=== PATIENT | male | born 1960 | race Caucasian/White ===

== ENCOUNTER → 2017-04-04 16:53 | Outpatient (CLI) | payer OTHER, SELFPAY ==
[2017-04-06 15:57] LABS: PSA, Free 1.81 ng/mL; PSA, Free % 23.5 (.); PSA, Total Ultrasensitive 7.7 ng/mL (0.0-4.0)
== END ==
PROVIDERS: Family Provider Family Medicine; PCP Family Medicine; Visit Provider Family Medicine
DX: R97.20 Elevated prostate specific antigen [PSA] (principal)
CPT/HCPCS: 36415; 84153; 84154

== ENCOUNTER → 2017-06-01 17:14 | Outpatient (CLI) | payer OTHER, SELFPAY ==
--- NOTE | 2017-06-01 08:00 | PROSBIL_PTH ---
PATIENT: MARVA CHIRINOS LOC: [facility] U#:[id number] AGE/SX: 64/M ROOM: RE06/01/[address]: Dr. Brandon Tracy MD : 1960 BED: DIS: SPEC #: [id number] RECD: 06/01/17 16:35 STATUS: JULIEN RASHAUN #: [id number] WOJCIECH: 06/01/17 08:[address]: Brandon Tracy DEPT: SURGICAL PATHOLOGY RECD BY: Duc Jeffers ENTERED: 06/02/17 10:49 SP TYPE: PROST BX XIMENA DR: Dr. Tacos Gomez MD Tissues: A - PROSTATE RIGHT B - PROSTATE RIGHT C - PROSTATE RIGHT D - PROSTATE LEFT E - PROSTATE LEFT F - PROSTATE LEFT Procedures: PROSTATE BX HEADER OPERATION: Prostate biopsy PRE-OP DIAGNOSIS: Elevated PSA TISSUE SUBMITTED: A - Right apex, B - Right mid, C - Right base, D - Left apex, E - Left mid, F - Left base MICROSCOPIC DIAGNOSIS A. Right prostate, apex, core biopsy: Mild chronic inflammation and focal acute inflammation. B. Right prostate, mid, core biopsy: Mild chronic inflammation. C. Right prostate, base, core biopsy: Mild chronic inflammation. D. Left prostate, apex, core biopsy: Mild chronic inflammation. E. Left prostate, mid, core biopsy: Mild chronic inflammation. F. Left prostate, base, core biopsy: Mild chronic inflammation and focal acute inflammation. AM:evelyn 06/05/17 MICROSCOPIC DESCRIPTION Slides are reviewed. GROSS DESCRIPTION A - Received is one container designated prostate, right apex. The specimen consists of two elongated fragments of light silva-white soft tissue each measuring 1.5 cm in length and 0.1 cm in diameter. The specimen is totally submitted in one cassette. B - Received is one container designated prostate, right mid. The specimen consists of two elongated fragments of light silva-white soft tissue each measuring 1.5 cm in length and 0.1 cm in diameter. The specimen is totally submitted in one cassette. C - Received is one container designated prostate, right base. The specimen consists of two elongated fragments of light silva-white soft tissue each measuring 1.5 cm in length and 0.1 cm in diameter. The specimen is totally submitted in one cassette. D - Received is one container designated prostate, left apex. The specimen consists of two elongated fragments of light silva-white soft tissue each measuring 1 cm in length and 0.1 cm in diameter. The specimen is totally submitted in one cassette. E - Received is one container designated prostate, left mid. The specimen consists of two elongated fragments of light silva-white soft tissue each measuring 1.5 cm in length and 0.1 cm in diameter. The specimen is totally submitted in one cassette. F - Received is one container designated prostate, left base. The specimen consists of two elongated fragments of light silva-white soft tissue each measuring 1 cm in length and 0.1 cm in diameter. The specimen is totally submitted in one cassette. / AM:evelyn 06/02/17 TC:2 CPT: 00609 x6
== END ==
PROVIDERS: Family Provider Family Medicine; PCP Family Medicine; Visit Provider Urology
DX: R97.20 Elevated prostate specific antigen [PSA] (principal)
CPT/HCPCS: 88305; G0416

== ENCOUNTER → 2018-04-02 | Outpatient (CLI) | payer OTHER, SELFPAY ==
[2018-04-02 17:21] LABS: PSA,Total- Diagnostic 6.46 ng/mL (0.0-4.0)
== END | disposition home or self-care (01) ==
LOC: LAB 16:06
PROVIDERS: Family Provider Family Medicine; PCP Family Medicine; Referring Provider Urology; Visit Provider Urology
DX: R97.20 Elevated prostate specific antigen [PSA] (principal)
CPT/HCPCS: 36415; 84153

== ENCOUNTER → 2018-04-23 16:53 | Outpatient (CLI) | payer OTHER, SELFPAY | PROVIDERS: Family Provider Family Medicine; PCP Family Medicine; Referring Provider Urology; Visit Provider Urology | DX: R31.9 Hematuria, unspecified (principal) | CPT/HCPCS: 87077; 87086; 87088; 87186 ==

== ENCOUNTER → 2018-10-16 06:13 | Outpatient (CLI) | payer OTHER, SELFPAY ==
[2018-10-16 08:10] LABS: AST(SGOT) 19 U/L (15-37); Alanine Aminotransfer ALT/SGPT 30 U/L (16-61); Albumin, Serum 3.2 g/dL (3.2-5.0); Alkaline Phosphatase 64 U/L (45-117); Anion Gap 6 (5-15); BUN 12 mg/dL (7-18); BUN/Creat Ratio 13.4 RATIO (10-20); Calcium,Total 8.6 mg/dL (8.5-10.1); Chloride 111 mmol/L (98-107); Cholesterol 161 mg/dL (200); Creatinine, Serum 0.89 mg/dL (0.70-1.30); EST Glomerular Filtration Rate 94 mL/min (>60); Est Glom Filt Rate - Afr Amer 113 mL/min (>60); Globulin 3.3 g/dL (2.2-4.2); Glucose 94 mg/dL (74-106); High Density Lipoprotein 45 mg/dL; Potassium 4.3 mmol/L (3.5-5.1); Protein, Total 6.5 g/dL (6.4-8.2); Sodium Level 146 mmol/L (136-145); Triglycerides 112 mg/dL; Very Low Density Lipoprotein 22 mg/dL (5-40)
== END ==
PROVIDERS: Family Provider Family Medicine; PCP Family Medicine; Referring Provider Urology; Visit Provider Urology
DX: I10 Essential (primary) hypertension (principal)
CPT/HCPCS: 36415; 80053; 80061

== ENCOUNTER → 2019-04-18 06:07 | Outpatient (CLI) | payer OTHER, SELFPAY ==
[2019-04-18 07:34] LABS: AST(SGOT) 26 U/L (15-37); Alanine Aminotransfer ALT/SGPT 36 U/L (16-61); Albumin, Serum 3.5 g/dL (3.2-5.0); Alkaline Phosphatase 72 U/L (45-117); Anion Gap 4 (5-15); BUN 16 mg/dL (7-18); BUN/Creat Ratio 18.3 RATIO (10-20); Calcium,Total 8.8 mg/dL (8.5-10.1); Chloride 109 mmol/L (98-107); Cholesterol 176 mg/dL (200); Creatinine, Serum 0.88 mg/dL (0.70-1.30); EST Glomerular Filtration Rate 96 mL/min (>60); Est Glom Filt Rate - Afr Amer 116 mL/min (>60); Globulin 3.5 g/dL (2.2-4.2); Glucose 98 mg/dL (74-106); High Density Lipoprotein 42 mg/dL; PSA,Total - Annual Screen 7.96 ng/mL (0.00-4.00); Potassium 4.3 mmol/L (3.5-5.1); Sodium Level 142 mmol/L (136-145); Triglycerides 126 mg/dL; Very Low Density Lipoprotein 25 mg/dL (5-40)
== END ==
PROVIDERS: PCP Family Medicine; Referring Provider Family Medicine; Visit Provider Family Medicine
DX: Z00.00 Encounter for general adult medical examination without abnormal findings (principal)
CPT/HCPCS: 36415; 80053; 80061; 84153; G0103

== ENCOUNTER → 2019-10-29 | Outpatient (CLI) | payer OTHER, SELFPAY | END | disposition home or self-care (01) | LOC: LABSPEC 15:58 | PROVIDERS: PCP Family Medicine; Referring Provider Nurse Practitioner Adult Health; Visit Provider Nurse Practitioner Adult Health | DX: R31.0 Gross hematuria (principal) | CPT/HCPCS: 87077; 87086; 87088 ==

== ENCOUNTER → 2019-11-07 07:41 | Outpatient (CLI) | payer OTHER, SELFPAY ==
--- NOTE | 2019-11-07 08:30 | CT_ITS ---
STUDY: CT ABDOMEN AND PELVIS WITH AND WITHOUT CONTRAST REASON FOR EXAM: Male, 58 years old. HEMATURIA X 1 MONTH RADIATION DOSAGE (If Supplied By Facility): CTDIvol = ( 22.13 ) mGy, DLP = ( 2323.14 ) mGycm TECHNIQUE: Transaxial images were obtained from the dome of the diaphragm to the symphysis pubis without oral contrast. IV 100mL Isovue-300 was administered. Sagittal and coronal images were reconstructed. Individualized dose optimization techniques were used for this CT. COMPARISON: None. FINDINGS: The visualized lung bases are unremarkable. The visualized portions of the heart are within normal limits. There is decreased attenuation of the liver consistent with steatosis. Normal gallbladder and extrahepatic biliary system. Normal spleen. Normal pancreas. Normal bilateral adrenal glands. Normal right kidney. Normal left kidney. There is a small hiatal hernia. Normal small intestine. Normal colon. The appendix is visualized and appears normal. Normal abdominal aorta. Normal inferior vena cava. There is borderline retroperitoneal lymphadenopathy with enlarged nodes no greater than 10mm in the short axis diameter. Normal urinary bladder. There is enlargement of the prostate gland. It measures 7.4 cm x 7.3 cm. This causes indentation at the bladder base. Normal abdominal wall. Small benign-appearing bilateral inguinal lymph nodes. There are mild degenerative changes of the visualized lumbar spine. CT/CT Abd/Pelvis W/WO Contrast IMPRESSION: Marked degree of enlargement of the prostate with indentation at the bladder base. Fatty attrition of the liver. Electronically Signed: Ivan Jean-Baptiste, at 9:05 EDT , Service support ,
== END ==
PROVIDERS: PCP Family Medicine; Referring Provider Nurse Practitioner Adult Health; Visit Provider Nurse Practitioner Adult Health
DX: R31.0 Gross hematuria (principal)
CPT/HCPCS: 74178; Q9967

== ENCOUNTER 2019-12-26 14:17 | Observation (INO) | payer OTHER, SELFPAY ==
--- NOTE | 2019-12-24 08:55 | EKG12_ITS ---
Test Reason : PRE OP Blood Pressure : / mmHG Vent. Rate : 055 BPM Atrial Rate : 055 BPM P-R Int : 190 ms QRS Dur : 108 ms QT Int : 424 ms P-R-T Axes : 014 005 015 degrees QTc Int : 405 ms Sinus bradycardia Otherwise normal ECG Confirmed by PARK DIEGO, SERGIO ([id number]), society editor KAYODE BARAJAS ([id number]) on 12/25/2019 8:57:21 AM Referred By: Brandon Tracy Confirmed By:SERGIO NICK MD
[2019-12-25] VITALS (14 sets, daily range): BP systolic 117–151; BP diastolic 60–85; PULSE 57–86; RESP 12–64; TEMP 36.2–36.7; O2SAT 93–98; BMI 44.6; BMI 45.3
[2019-12-25] MEDS: Lactated Ringers 1,000 ML 100 ML IV ×3 (06:54→10:00)
--- NOTE | 2019-12-25 07:28 | PCM.HP.STD ---
Problem List (1) BPH with obstruction/lower urinary tract symptoms Status: Acute History of Present Illness Date of Admission: 12/25/19 Chief Complaint: BPH with obstruction very large prostate The patient is a 59 year old male with a prostate over 100 g in size who presents today for a robotic prostatectomy for BPH with obstruction Past Medical History Allergies No Known Allergies Allergy (Verified 12/13/19 11:16) Home Medications: Ambulatory Orders Medication Instructions Recorded Tamsulosin HCl [Flomax] 0.8 mg PO 162912/27/12 Atenolol [Tenormin (beta Jaylene)] 50 mg PO 162904/24/15 Multivitamin with Minerals 1 ea PO DAILY 12/13/19 [Multiple Vitamin] Omeprazole [Prilosec] 80 mg PO 162912/13/19 Proaxil 2 - 3 tab PO DAILY 12/13/19 Surgical History: no surgical history Smoking Status: Never smoker Tobacco Use: Non-smoker Review of Systems Constitutional: Denies: Chills, Fever, Weight Change HEENT: Denies: Head Aches, Sinus Congestion, Sinus Drainage Cardiovascular: Denies: Chest Pain, Palpitations Respiratory: Denies: Cough, Shortness of breath at rest, Sputum production Gastrointestinal: Denies: Abdominal Pain, Nausea, Vomiting Genitourinary: Denies: Dysuria Musculoskeletal: Denies: Joint Pain, Joint Tenderness Skin: Denies: Rash, Wounds Neurological: Denies: Numbness, Tingling, Focal weakness Psychiatric: Denies: Anxiety, Depression, Homicidal Ideations, Suicidal Ideations Hematologic/ Lymphatic: Denies: Easy Bruising, Easy Bleeding VTE Information - Inpt Only VTE Present on Admission: No VTE Mechan Device Prophylaxis: SCD's - Physical Exam Vitals/I&O's: Vital Signs Temp Pulse Resp BP Pulse Ox 97.3 F L 58 L 16 138/83 H 96 12/25/19 06:21 12/25/19 06:21 12/25/19 06:21 12/25/19 06:21 12/25/19 06:21 Oxygen Delivery Method Room Air Weight: 153.4 kg Body Mass Index (BMI) 44.6 General: Alert, Oriented x3, Cooperative HEENT: Atraumatic, PERRLA, EOMI, Normocephalic Neck: Supple, No JVD, Negative Carotid Bruits Lungs: Clear to auscultation, Normal air movement Cardiovascular: Regular rate, No murmurs Abdomen: Bowel Sounds Present, Soft, Non Tender Extremities: No edema, Capillary Refill Less than 3 Seconds Skin: No rashes, No breakdown Musculoskeletal: No Tenderness to Palpation of Joints or Extremities Neurological: Cranial nerves II-XII grossly intact Psych/Mental Status: Normal Affect, Appropriate Microbiology Past 72 Hours 12/24/19 09:02 Interface Orders SARS-CoV-2 Antigen (Rapid) - Final Current Medications Cefazolin Sodium 2 gm/ Sodium (Chloride) 110 mls @ 150 mls/hr IV PREOP ONE Stop: 12/25/19 07:43 Lactated Ringer's () 1,000 mls @ 100 mls/hr IV .Q10H PRINCE Last Admin: 12/25/19 06:54 Dose: 100 mls/hr Documented by: Lactated Ringer's () 1,000 mls @ 100 mls/hr IV .Q10H PRINCE Last Admin: 12/25/19 06:55 Dose: 100 mls/hr Documented by: Assessment/Plan All Active Problems BPH with obstruction/lower urinary tract symptoms (Acute) 59-year-old male with a very large prostate plan to proceed with a robotic prostatectomy.
--- NOTE | 2019-12-25 07:34 | DCINST_ITS ---
Discharge Diet: Light diet - advance as tolerated, Soft diet Discharge Activity: May not drive while taking narcotic pain medications., May Shower Return to work on:: 01/22/20 Call your doctor if your incision/area has: Continuous Slow Oozing, Increased Pain/ Swelling, Increased Redness, Foul Smelling Discharge, Swelling at the incision site Call your doctor if you observe: Fever of 101 or Higher Catheter: Gardiner to leg bag, Gardiner to large bag Drain: [place] Allergies/Adverse Reactions: Allergies No Known Allergies Allergy (Verified 12/13/19 11:16) Medications to take at Discharge Tamsulosin HCl [Flomax] 0.8 mg PO 0 12/27/12 Atenolol [Tenormin (beta Jaylene)] 50 mg PO 0 04/24/15 Multivitamin with Minerals [Multiple Vitamin] 1 ea PO DAILY 12/13/19 Omeprazole [Prilosec] 80 mg PO 1630 12/13/19 Proaxil 2 - 3 tab PO DAILY 12/13/19 Ciprofloxacin [Cipro] 500 mg PO BID #14 tab 12/25/19 Docusate Sodium [Colace] 100 mg PO BID #20 cap 12/25/19 Hydrocodone/Acetaminophen [[place] 5-325 Tablet] 1 each PO Q4H PRN PRN 7 Days #14 tablet 12/25/19 The following prescriptions were given: Ciprofloxacin [Cipro] 500 mg PO BID #14 tab Transmission Status: Pending to [id number] Docusate Sodium [Colace] 100 mg PO BID #20 cap Transmission Status: Pending to [id number] Hydrocodone/Acetaminophen [[place] 5-325 Tablet] 1 each PO Q4H PRN PRN 7 Days #14 tablet PRN Reason: Pain 1-10 Or Fever Transmission Status: Received by [id number] Primary Care Physician: Jed Gomez MD [Primary Care Provider] - Test Results: Test results from this visit will be discussed in further detail at your follow- up appointment, if applicable. Please Follow Up With: Brandon Tracy MD When: in 2 weeks, please call to make an appointment. Proposed Discharge Date: 12/26/19
--- NOTE | 2019-12-25 08:00 | PROST_PTH ---
PATIENT: MARVA CHIRINOS LOC: [facility] U#:[id number] AGE/SX: 59/M ROOM: TX302 RE12/26/[address]: Dr. Brandon Tracy MD : 1960 BED: 1 DIS: 12/27/2019 SPEC #: [id number] RECD: 12/25/19 13:14 STATUS: JULIEN RODNEY #: [id number] WOJCIECH: 12/25/19 08:[address]: Brandon Tracy DEPT: SURGICAL PATHOLOGY RECD BY: Marla Rader ENTERED: 12/26/19 08:40 SP TYPE: PROSTATE OTHR DR: Dr. Tacos Gomez MD Tissues: Prostate, NOS Procedures: Surgery Specimen Level V HEADER OPERATION: Lap robotic simple prostatectomy PRE-OP DIAGNOSIS: BPH with obstruction, lower urinary tract symptoms TISSUE SUBMITTED: Prostate MICROSCOPIC DIAGNOSIS Prostate, simple prostatectomy: Benign prostatic hyperplasia, glandular and stromal type. Acute and chronic inflammation. SJ:evelyn 12/27/19 MICROSCOPIC DESCRIPTION Slides are reviewed. GROSS DESCRIPTION Received in fixative is one container labeled with the patient's name and designated prostate. The specimen consists of a simple prostatectomy specimen in multiple pieces weighing in aggregate 92 gm. The larger piece measures 6 x 5 x 4 cm. Also received are multiple smaller pieces measuring in aggregate 8 x 7.5 x 3 cm. Sections do not reveal any mass lesion. Transportation Job Titles sections are submitted in six cassettes. Cassettes 1-6 contains the largest piece. / GERARDO:evelyn 12/26/19 TC:5 CPT: 45413
[2019-12-25] MEDS: Cefazolin 2 GM in 0.9% Normal Saline 100 ML IV (08:15)
[2019-12-25] MEDS: Bupivacaine Mpf 0.5% 30 ML VIAL (08:41)
--- NOTE | 2019-12-25 11:06 | OP.PCM_ITS ---
Problem List (1) BPH with obstruction/lower urinary tract symptoms Status: Acute Report of Operation Date of Procedure: 12/25/19 Pre-Operative Diagnosis: BPH with enlarged prostate Post-Operative Diagnosis: Same Surgery/Procedure Performed:: Laparoscopic robotic assisted prostatectomy Description of Surgical Findings:: 59-year-old male was taken back to the operating room at the smooth induction of general anesthesia he was placed in dorsolithotomy position. The abdomen shaved and prepped and draped in usual sterile fashion, the penis and testicles were prepped and draped using usual sterile fashion. We placed a 16 [place] catheter into the bladder. I then made a small incision in the umbilicus and dissected down to the anterior fascia with a hemostat and then used a Veress needle to introduce the Veress needle into the peritoneal cavity filled the peritoneal cavity CO2 gas and then placed my camera trocar right arm trocar left arm trocar 1012 Lee Durand air seal port and a suction port. The placement was placed in full Trendelenburg we then started off by filling the bladder up with 500 cc of normal saline I then made an incision in the bladder in the midline from the top to the bottom opening of the bladder clamps showing the bladder completely. I then passed a Fernando needle with Prolene on the right side of the abdomen it was quite difficult because he was a very obese male with the push on the abdomen and see with a Fernando needle came through. We then retracted the right side of the bladder laterally we did the same thing on the left side the right clamshell open the bladder I then went in and using the scissors and the prograsp started dissecting on the prostate incised the mucosa all the way circumferentially around the prostate identified the adenoma started dissecting the inferiorly and the adenoma*working on the adenoma on the right side went above the adenoma lateral to the adenoma below the adenoma as deep as possible into the prostate to then enucleate the adenoma from the prostatic fossa as I went through there were some attachments of the adenoma we can see eventually the large adenoma on the right side of the prostate was removed and then we went to the left side continue with the dissection the left side grabbing the adenoma was circumferentially we were dissecting the adenoma off the prosthetic bed and enucleated the prostatic adenoma off the prostate all the way deep into the prostate. We fracture the abdomen to get pieces and fracture the abdomen the left and right side took pieces to be the Endo Catch bag to put all the pieces then an adenoma in the Endo Catch bag and as we remove the adenoma growth from the prostate we then cleared out all the growth that was blocking off the channel he then had a nice wide open channel from the bladder neck all the way to the urethra we placed a new 20 [place] catheter into the bladder and then I completed the anastomosis after excising the adenoma from the bladder neck mu huey advancing it all the way down to the mucosa all the way around to advance to mucosa to help prevent a bladder neck contracture after the mucosa was advanced then I put a catheter in the bladder we filled up to 10 cc of sterile water with minor traction the catheter and then we closed the bladder up in 2 layers are closed closed the first layer with 3-0 Vicryl running layer and then we closed the second layer of the bladder with 2-0 Vicryl running layer these were then sutured down and tied we then filled the bladder up to test for leakage and there was no leakage from the bladder bladder was irrigated completely and nice and clear with a pinkish-yellow pinkish color urine. I we then extracted the prostatic adenoma from the lower abdomen through the extending the air seal port site then we closed the fascia with interrupted sutures. We then closed all the port sites removed all the trochars undocked the robot and then closed with the port sites with subcuticular stitches patient's anesthetic is currently being reversed all the sponges and needles were accounted for the urine was clear he still under anesthesia but being awakened at this point he is hemodynamically stable blood loss was about 200 cc during the case. Successful removal of the prostatic adenoma placement Manning catheter and closure of bladder. Type of Anesthesia:: General Drains: 20 fr manning - Admit VTE Documentation VTE Present on Admission: No VTE Mechan Device Prophylaxis: SCD's
[2019-12-25] MEDS: Ketorolac 15 MG/ML Vial IV ×3 (11:58→21:07)
[2019-12-25] MEDS: 0.9% Normal Saline 1,000 ML 150 ML IV ×3 (12:19→23:07)
--- NOTE | 2019-12-25 12:55 | SUR.PHASEI ---
IN PACU: DR HOOKS INSERTED 3-WAY CATHETER FOR CBI AFTER MANUALLY IRRIGATING CATHETER, RETURNED DARK RED BLOOD AND CLOTS. WILL MONITOR BEFORE TRANSFERRING TO MED-SURG.
--- NOTE | 2019-12-25 14:32 | NURSING ---
computer in room not working, unable to find portable computer to use in this pt room-called i.s. and left message of problem at this time
[2019-12-25] MEDS: Pantoprazole Sodium 40 MG Tablet PO (15:20)
[2019-12-25] MEDS: Tolterodine Tartrate 4 MG CAP.SA PO (15:20)
[2019-12-25] MEDS: Docusate Sodium 100 MG Capsule PO ×2 (15:20→21:07)
[2019-12-25] MEDS: Ciprofloxacin 400 MG/200 ML BAG 200 MG IV (15:38)
[2019-12-25] MEDS: Atenolol 50 MG Tablet PO (15:40)
[2019-12-26] MEDS: Ciprofloxacin 400 MG/200 ML BAG 200 MG IV (03:07)
[2019-12-26] MEDS: Ketorolac 15 MG/ML Vial IV ×3 (03:07→16:18)
[2019-12-26 03:10] VITALS: BP 133/52; PULSE 66; RESP 18; TEMP 36.9; O2SAT 98
[2019-12-26 06:29] LABS: Hematocrit 43.3 % (40-54); Hemoglobin 13.7 g/dL (13.0-16.5); Mean Corp Hgb Conc 31.6 g/dL (32-36); Mean Corpuscular Hgb 27.3 pg (27.0-32.0); Mean Corpuscular Volume 86.4 fL (80-94); Mean Platelet Vol. 9.6 fl (6.2-12.0); Platelet Count 231 K/mm3 (150-450); RBC Distribution Width CV 13.2 % (11.6-14.6); RBC Distribution Width SD 41.6 fl (35.1-43.9); Red Blood Count 5.01 M/mm3 (4.6-6.2); White Blood Count 14.6 K/mm3 (4.4-11.0)
[2019-12-26 06:54] LABS: Anion Gap 3 (5-15); BUN 12 mg/dL (7-18); BUN/Creat Ratio 13.3 RATIO (10-20); Calcium,Total 8.3 mg/dL (8.5-10.1); Chloride 110 mmol/L (98-107); EST Glomerular Filtration Rate 93 mL/min (>60); Est Glom Filt Rate - Afr Amer 112 mL/min (>60); Estimated Creatinine Clearance 102.34 ml/min; Glucose 118 mg/dL (74-106); Potassium 3.9 mmol/L (3.5-5.1); Sodium Level 139 mmol/L (136-145)
[2019-12-26 08:57] VITALS: BP 130/75; PULSE 63; RESP 16; TEMP 36.7; O2SAT 98
[2019-12-26] MEDS: Tolterodine Tartrate 4 MG CAP.SA PO (09:22)
[2019-12-26] MEDS: Docusate Sodium 100 MG Capsule PO ×2 (09:22→21:56)
[2019-12-26] MEDS: Pantoprazole Sodium 40 MG Tablet PO (09:22)
[2019-12-26 13:54] VITALS: BP 134/84; PULSE 78; RESP 16; TEMP 37.2; O2SAT 96
[2019-12-26] MEDS: Atenolol 50 MG Tablet PO (16:18)
[2019-12-26] MEDS: HYDROcodone Bitartrate/Apap 5/325 Tablet PO (19:31)
[2019-12-26 20:21] VITALS: BP 119/79; PULSE 67; RESP 16; TEMP 36.5; O2SAT 97
[2019-12-27 02:31] VITALS: BP 152/80; PULSE 67; RESP 16; TEMP 36.5; O2SAT 96
[2019-12-27 08:28] VITALS: BP 136/82; PULSE 75; RESP 16; TEMP 36.8; O2SAT 96
[2019-12-27 08:35] VITALS: O2SAT 95
[2019-12-27] MEDS: Pantoprazole Sodium 40 MG Tablet PO (08:47)
[2019-12-27] MEDS: Docusate Sodium 100 MG Capsule PO (08:47)
[2019-12-27] MEDS: Tolterodine Tartrate 4 MG CAP.SA PO (08:47)
== END 2019-12-27 12:35 | disposition home or self-care (01) ==
LOC: SDC 14:32 → MS3 14:32
PROVIDERS: Admitting Provider Urology; PCP Family Medicine; Referring Provider Urology; Visit Provider Urology
PROC: 0VT04ZZ Resection of Prostate, Percutaneous Endoscopic Approach (ICD-10-PCS; CPT 55866; principal; 2019-12-25 07:40)
DX: N40.1 Benign prostatic hyperplasia with lower urinary tract symptoms (principal); N13.8 Other obstructive and reflux uropathy; Z79.899 Other long term (current) drug therapy; Z20.828 Contact with and (suspected) exposure to other viral communicable diseases; I10 Essential (primary) hypertension; K21.9 Gastro-esophageal reflux disease without esophagitis
CPT/HCPCS: 00865; 55866; S2900; 80048; 85027; 87426; 88307; 88309; 93005; 96361; 96365; 96366; 96375; 96376; 99218; C9803; J7030; J7120; G0378; G0379; J0744; J2405

== ENCOUNTER → 2020-05-27 11:20 | Outpatient (CLI) | payer OTHER, SELFPAY ==
[2019-12-25 13:45] VITALS: BMI 45.3
[2020-05-27 13:25] LABS: ALB/GLOB Ratio 1.1 RATIO (0.9-2.4); AST(SGOT) 18 U/L (15-37); Alanine Aminotransfer ALT/SGPT 30 U/L (16-61); Albumin, Serum 3.6 g/dL (3.2-5.0); Alkaline Phosphatase 61 U/L (45-117); Anion Gap 5 (5-15); BUN 12 mg/dL (7-18); BUN/Creat Ratio 13.4 RATIO (10-20); Calcium,Total 8.9 mg/dL (8.5-10.1); Chloride 109 mmol/L (98-107); Creatinine, Serum 0.89 mg/dL (0.70-1.30); EST Glomerular Filtration Rate 93 mL/min (>60); Est Glom Filt Rate - Afr Amer 113 mL/min (>60); Globulin 3.4 g/dL (2.2-4.2); Glucose 92 mg/dL (74-106); PSA,Total - Annual Screen 1.83 ng/mL (0.00-4.00); Sodium Level 139 mmol/L (136-145)
== END ==
PROVIDERS: PCP Family Medicine; Referring Provider Family Medicine; Visit Provider Family Medicine
DX: I10 Essential (primary) hypertension (principal); R73.01 Impaired fasting glucose; N40.0 Benign prostatic hyperplasia without lower urinary tract symptoms
CPT/HCPCS: 36415; 80053; 84153; G0103

== ENCOUNTER → 2021-10-19 | Outpatient (CLI) | payer OTHER, SELFPAY ==
[2021-10-19 12:18] LABS: Hematocrit 49.6 % (40-54); Hemoglobin 16.3 g/dL (13.0-16.5); Mean Corp Hgb Conc 32.9 g/dL (32-36); Mean Corpuscular Hgb 27.8 pg (27.0-32.0); Mean Corpuscular Volume 84.6 fL (80-94); Mean Platelet Vol. 9.9 fl (6.2-12.0); Platelet Count 239 K/mm3 (150-450); RBC Distribution Width CV 13.5 % (11.6-14.6); Red Blood Count 5.86 M/mm3 (4.6-6.2); White Blood Count 6.7 K/mm3 (4.4-11.0)
[2021-10-19 12:59] LABS: ALB/GLOB Ratio 0.8 RATIO (0.9-2.4); AST(SGOT) 20 U/L (15-37); Alanine Aminotransfer ALT/SGPT 29 U/L (16-61); Albumin, Serum 3.2 g/dL (3.2-5.0); Alkaline Phosphatase 60 U/L (45-117); Anion Gap 7 (5-15); BUN 14 mg/dL (7-18); BUN/Creat Ratio 16.2 RATIO (10-20); Calcium,Total 9.3 mg/dL (8.5-10.1); Chloride 107 mmol/L (98-107); Cholesterol 193 mg/dL (200); Creatinine, Serum 0.86 mg/dL (0.70-1.30); EST Glomerular Filtration Rate 96 mL/min (>60); Est Glom Filt Rate - Afr Amer 117 mL/min (>60); Globulin 3.9 g/dL (2.2-4.2); Glucose 92 mg/dL (74-106); High Density Lipoprotein 38 mg/dL; PSA,Total - Annual Screen 4.53 ng/mL (0.00-4.00); Potassium 4.1 mmol/L (3.5-5.1); Protein, Total 7.1 g/dL (6.4-8.2); Sodium Level 140 mmol/L (136-145); Triglycerides 188 mg/dL; Very Low Density Lipoprotein 38 mg/dL (5-40)
== END | disposition home or self-care (01) ==
LOC: MFPLAB 11:10
PROVIDERS: PCP Family Medicine; Visit Provider Family Medicine
DX: K30 Functional dyspepsia (principal); R73.01 Impaired fasting glucose; Z12.5 Encounter for screening for malignant neoplasm of prostate
CPT/HCPCS: 36415; 80053; 80061; 84153; 85027; G0103

== ENCOUNTER → 2022-11-24 | Outpatient (CLI) | payer OTHER, SELFPAY ==
[2022-11-24 15:52] LABS: ALB/GLOB Ratio 0.9 RATIO (0.9-2.4); AST(SGOT) 23 U/L (15-37); Alanine Aminotransfer ALT/SGPT 42 U/L (16-61); Albumin, Serum 3.4 g/dL (3.2-5.0); Alkaline Phosphatase 56 U/L (45-117); Anion Gap 5 (5-15); BUN 15 mg/dL (7-18); BUN/Creat Ratio 17.6 RATIO (10-20); Calcium,Total 8.9 mg/dL (8.5-10.1); Chloride 108 mmol/L (98-107); Cholesterol 189 mg/dL (200); Creatinine, Serum 0.85 mg/dL (0.70-1.30); EST Glomerular Filtration Rate 98 mL/min (>60); Est Glom Filt Rate - Afr Amer 118 mL/min (>60); Globulin 3.6 g/dL (2.2-4.2); Glucose 98 mg/dL (74-106); High Density Lipoprotein 41 mg/dL; PSA,Total - Annual Screen 2.91 ng/mL (0.00-4.00); Potassium 4.2 mmol/L (3.5-5.1); Sodium Level 141 mmol/L (136-145); Triglycerides 143 mg/dL; Very Low Density Lipoprotein 29 mg/dL (5-40)
== END | disposition home or self-care (01) ==
LOC: MFPLAB 11:41
PROVIDERS: PCP Family Medicine; Visit Provider Family Medicine
DX: R73.01 Impaired fasting glucose (principal); R97.20 Elevated prostate specific antigen [PSA]
CPT/HCPCS: 36415; 80053; 80061; 84153; G0103

== ENCOUNTER → 2024-03-04 | Outpatient (CLI) | payer BC, SELFPAY ==
[2024-03-04 15:16] LABS: Absolute Lymphocyte Count 1.19 X10^3/uL (0.83-4.51); Absolute Neutrophil Count 4.5 X10^3/uL (2.0-7.7); Basophil# 0.08 X10^3/uL; Basophil% 1.2 % (0-1); Eosinophil# 0.11 X10^3/uL; Eosinophils% 1.7 % (0-5); Hematocrit 49.8 % (40-54); Hemoglobin 15.7 g/dL (13.0-16.5); Lymphocyte # 1.19 X10^3/ul (0.83-4.51); Lymphocyte % 18.5 % (19-41); Mean Corp Hgb Conc 31.5 g/dL (32-36); Mean Corpuscular Hgb 26.4 pg (27.0-32.0); Mean Corpuscular Volume 83.8 fL (80-94); Mean Platelet Vol. 10.1 fl (6.2-12.0); Monocyte# 0.54 X10^3/uL; Monocyte% 8.4 % (0-10); NRBC Flagged by Analyzer 0 % (0-5); Neutrophil # 4.49 X10^3/uL (2.7-7.7); Neutrophil % 69.7 % (47-70); Platelet Count 266 K/mm3 (150-450); RBC Distribution Width CV 13.1 % (11.6-14.6); RBC Distribution Width SD 39.9 fl (35.1-43.9); Red Blood Count 5.94 M/mm3 (4.6-6.2); White Blood Count 6.4 K/mm3 (4.4-11.0)
[2024-03-04 16:04] LABS: AST(SGOT) 20 U/L (15-37); Alanine Aminotransfer ALT/SGPT 31 U/L (16-61); Albumin, Serum 3.5 g/dL (3.2-5.0); Alkaline Phosphatase 69 U/L (45-117); Anion Gap 5 (5-15); BUN 12 mg/dL (7-18); BUN/Creat Ratio 12.9 RATIO (10-20); Calcium,Total 9.4 mg/dL (8.5-10.1); Chloride 106 mmol/L (98-107); Cholesterol 183 mg/dL (200); Creatinine, Serum 0.93 mg/dL (0.70-1.30); EST Glomerular Filtration Rate 88 mL/min (>60); Est Glom Filt Rate - Afr Amer 106 mL/min (>60); Globulin 3.5 g/dL (2.2-4.2); Glucose 107 mg/dL (74-106); High Density Lipoprotein 46 mg/dL; Potassium 4.3 mmol/L (3.5-5.1); Sodium Level 139 mmol/L (136-145); Triglycerides 138 mg/dL; Very Low Density Lipoprotein 28 mg/dL (5-40)
== END | disposition home or self-care (01) ==
LOC: BIMLAB 12:19
PROVIDERS: PCP Internal Medicine; Referring Provider Internal Medicine; Visit Provider Internal Medicine
DX: I10 Essential (primary) hypertension (principal); K21.9 Gastro-esophageal reflux disease without esophagitis
CPT/HCPCS: 36415; 80053; 80061; 84443; 85025

== ENCOUNTER → 2024-03-08 | Outpatient (CLI) | payer BC, SELFPAY ==
--- NOTE | 2024-03-08 12:27 | RAD_ITS ---
STUDY: X-RAY - LEFT KNEE REASON FOR EXAM: Male, 63 years old. Knee pain. TECHNIQUE: 4 views of the left knee. COMPARISON: Left knee radiographs dated 11/02/2005. FINDINGS: Normal visualized distal femur. Normal visualized proximal tibia and fibula. Normal proximal tibiofibular articulation. There is no demonstrated fracture. There is new moderate degenerative arthrosis of the medial femorotibial compartment with moderate joint space narrowing. There is new mild degenerative arthrosis of the lateral femorotibial compartment. There is new mild degenerative arthrosis of the patellofemoral articulation. The soft tissue structures are unremarkable. RAD/Knee 4 or More Views IMPRESSION: New tricompartment degenerative arthrosis of the left knee, most pronounced in the medial femorotibial compartment. Electronically Signed: Sean Clifton MD at 10:33 EST ,
== END | disposition home or self-care (01) ==
LOC: RAD 12:25
PROVIDERS: PCP Internal Medicine; Referring Provider Internal Medicine; Visit Provider Internal Medicine
DX: M25.562 Pain in left knee (principal); G89.29 Other chronic pain
CPT/HCPCS: 73564

== ENCOUNTER 2024-05-13 12:00 | Outpatient (RCR) | payer BC, SELFPAY ==
--- NOTE | 2024-03-20 11:39 | HP.PTEVAL_ITS ---
Patient's Visit Information Visit Information Visit Information: MARVA CHIRINOS is a 63 year old M referred to Physical Therapy by Dr. Melchor Feldman MD with a diagnosis of L knee pain. Date of Evaluation: 03/20/24 Physical Therapist: Chago Velez, DPT, OCS, CSCS Visit Plan Frequency: 2x /Week Duration: 4-6 Weeks Plan: 2x/week for 4-6 weeks recommended to patient for activity modification, management of condition, stretching l3egs and strengthening /ROM hips and knees and ankles and core to an I pool or gym/HEP.Start with pool therapy where he has been oriented for stretching quad and HS, knee ROM and hip ext ROM, and core and LE strength to an I program. IE HEP: quad and HS stretch on bed 30 5x daily and LAQ throughout day as well as activitiy modification with keeping knee moving and not overdoing WB if he does not have to. Benefits of ex program. Pt wishes to see his doctor for possible injections prior to beginning and will call to schedule after he sees that doctor. Subjective Subjective: L >R knee pain for years chronic. They are worn out. x ray knees shows OA. Went to doctor and has had injections years ago 25 yrs ago which helped temporarily. has been putting up with it. Disability is an option. 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 Hurts worse end of day, can't sit often. 2-6/10 worse with dangling, sitting too long is worse, feet are worse end of work day as are feet. No meds or bracing for this, h/o R knee scope yrs ago. No ortho lately Hobbies: Tired at end of day so no hobbies. Works eats and sleeps, 9-11 hour shifts 5 days per week. No regular exercises. Pain L knee: Pain Intensity (Out of 10): 3 Pain Intensity Range: 2 and 6 Comment: both knees L worse Objective Objective: Walks back to PT slowly but I, wide VALERIE and short step length but safe and good balance. Trasnfers chair and bed I slowly. Large girth. Steps are reciprocal up and down with L knee pain in both directions and requires rails. AROM L knee 0-114 adn r knee 0-120. Pain at end ranges of flexion max tightness in HS at -40 and quad at 90 with hip neutral. Lots of tightness. Otherwise hip aROM WFL xcept extension limited to 5 B. ankle AROM WFL adn painfree today. reflexes 1/3 patella and achilles B. sensation LE WNL to gross light touch. strength hip flexion 3+, abd 3, ext 3, knee flexion 4- and knee ext 4+ B. ankles 5/5 B. - bounce home, - patellar grind B. Balance/Special Test Scores Lower Extremity Functional Score: 42 Goals Goal 1:: Work without increased pain in knees Goal Time Frame: 4-6 Weeks Goal 2:: I appropriate HEP to limit future problems(pool vs land/gym) Goal Time Frame: 4-6 Weeks Goal 3:: Pain in knees and feet 2/10 at worst adn 70% better Goal Time Frame: 4-6 Weeks Goal 4:: LEFS 55 Goal Time Frame: 4-6 Weeks Goal 5:: steps without noticing pain in L kne Goal Time Frame: 4-6 Weeks Rehabilitation Potential Physical Therapy Diagnosis: L knee pain likely degenerative in nature and poorly managed making mobility uncomfortable. Rehabilitation Potential: Fair Anticipated Interventions Patient/Client Instruction: Educate patient on: Condition and Plan of Care For the Purpose of:: To decrease pain, To increase ROM, To improve nutrient delivery to tissue, To improve muscle performance and motor function, To increase tolerance to activity/condition/position, To improve ability of physical actions for home/community/work/leisure and To improve gait and locomotor functions Therapeutic Exercise to Include: Strength training, Flexibilty training, In an aquatic setting, Passive ROM and Active ROM For the Purpose of:: To decrease pain, To decrease swelling/inflammation, To increase ROM, To improve nutrient delivery to tissue, To improve muscle performance and motor function, To increase tolerance to activity/condition/position and To improve ability of physical actions for home/community/work/leisure Text: Thank you for the opportunity to evaluate your patient. For Medicare and Medicare HMO plans, please review the plan of care and approve it. It will need to be FAXED BACK to us at [phone] for Medicare purposes. For Medicare only, by signing this I certify the plan of care. Please let me know if there are questions or concerns regarding this plan of care. Physician Signature: Date:
--- NOTE | 2024-05-13 12:20 | HP.PTDCSUM ---
Discharge Summary D/C summary: It has been my pleasure to treat MARVA CHIRINOS referred by Dr. Melchor Feldman MD, with the diagnosis of L knee pain for a total of 9 visit(s). Discharge Date: 05/13/24 Please see the following information for a summary of their discharge status. Subjective Subjective: Pool strengthens him up but still pain behind the knee. Hurt bad behind both knees Monday adn could not make it in. Helps to be in the pool. Doing HEP 3x/week. Sees Josh in late May. Not sure but injections might be next step. Pt thinks he needs next step. Pain L knee: Pain Intensity (Out of 10): 7 B ankles: Pain Intensity (Out of 10): 7 R hip: Pain Intensity (Out of 10): Unrated Overall Improvement % Improvement: 10 Objective Objective/Function: 0-115 AROM B knees, tightness L end range flexion. Mod tightness HS B and quad B. No antalgia in gait today but slow and lumbering. Ovrall not much improvd adn appropriate for next step with doctor(injection vs MRI according to patient) Goals Goal 1:: Work without increased pain in knees Goal Progress: Goal Met Goal 2:: I appropriate HEP to limit future problems(pool vs land/gym) Goal Progress: home, not gym Goal 3:: Pain in knees and feet 2/10 at worst adn 70% better Goal Progress: Progressing Goal 4:: LEFS 55 Goal Progress: Not Progressing Goal 5:: steps without noticing pain in L kne Goal Progress: Not Progressing Plan Plan: d/c to HEP, may benefit from more gym ex once pain is addressed D/C Information Discharge Comments: Back to doctor for next medical step. d/c sentence: If there are questions or concerns regarding this patient's physical therapy, please feel free to call me at [phone]. Thank you for the referral of this patient. Sincerely, Chago Velez, DPT, OCS, CSCS Balance/Gait/Functional tests Balance/Special Test Scores Lower Extremity Functional Score: 29 Improvement % Improvement: 10
== END 2024-05-13 12:54 | disposition home or self-care (01) ==
LOC: PT 12:00
PROVIDERS: PCP Internal Medicine; Referring Provider Internal Medicine; Visit Provider Internal Medicine
DX: M25.562 Pain in left knee (principal); G89.29 Other chronic pain
CPT/HCPCS: 97110; 97113; 97161; 97530

== ENCOUNTER 2024-06-28 06:43 | Day surgery (SDC) | payer BC, SELFPAY ==
[2024-06-28] VITALS (8 sets, daily range): BP systolic 103–140; BP diastolic 71–87; PULSE 61–68; RESP 16–95; TEMP 36.1–36.6; O2SAT 95–99; BMI 45.6
[2024-06-28] MEDS: Lactated Ringers 1,000 ML 15 ML IV (07:24)
--- NOTE | 2024-06-28 07:29 | PRE.ANES_ITS ---
ASA Classification* ASA Classification ASA Classification: 3 Assessment & Plan Anesthesia* Anesthesia Assessment Anesthesia Assessment: Discussed sedation and/or anesthesia options, risks, benefits, and alternatives with patient/parents/legal guardian/POA. Questions invited. The patient/parents/legal guardian/POA seems to understand and agrees to proceed with anesthesia plan. Reviewed the physical assessment, medical history, allergy history and patient home medications list prior to surgery/procedure/anesthetic and documented any changes. Performed airway and anesthesia risk assessments. Anesthesia Type Anesthesia Type: MAC Anesthesia Focused Assessment* Temperature: 97.3 F Pulse Rate: 61 Blood Pressure: 140/87 Respiratory Rate: 16 Pulse Ox: 99 Airway Assessment Mouth opens: >3 cm Mallampati Score: III Focused Labs Anesthesia Preop lab: CBC WBC 6.4 K/mm3 (4.4-11.0) 03/04/24 12:03/04/24 RBC 5.94 M/mm3 (4.6-6.2) 03/04/24 12:03/04/24 Hgb 15.7 g/dL (13.0-16.5) 03/04/24 12:03/04/24 Hct 49.8 % (40-54) 03/04/24 12:03/04/24 Plt Count 266 K/mm3 (150-450) 03/04/24 12:03/04/24 CHEMISTRY Potassium 4.3 mmol/L (3.5-5.1) 03/04/24 12:03/04/24 Sodium 139 mmol/L (136-145) 03/04/24 12:03/04/24 BUN 12 mg/dL (7-18) 03/04/24 12:03/04/24 Creatinine 0.93 mg/dL (0.70-1.30) 03/04/24 12:03/04/24 Glucose 107 mg/dL (74-106) H 03/04/24 12:03/04/24 TSH 1.800 uIU/mL (0.358-3.740) 03/04/24 12:02/14 COAG Pre-Assessment Diagnosis/Proposed Procedure Planned Operative Procedure(s): EGD/CSCOPE Anesthesia History 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 When Was Last Pacemaker Check QUESTION #4 FULL TEXT: You/Your Family Experience fever (hyperthermia) with Anesthesia Last Oral Intake Last Oral intake: Last Oral Intake NPO since 16:00 06/28/24 07:14 Meds taken in AM with sips of No 06/28/24 07:14 water? Meds patient instructed to take am of surgery PONV PONV - instructor dancing: PONV - instructor dancing Female No 06/27/24 09:51 HX of Motion Sickness Yes 06/27/24 09:51 HX of N/V After Surgery No 06/27/24 09:51 Non-Smoker Yes 06/27/24 09:51 Duration of Surgery greater No 06/27/24 09:51 than 60 minutes Number of Risk Factors 2 06/27/24 09:51 PONV Score Moderate Risk 06/27/24 09:51 Height & Weight Height & Weight: Anesthesia: Height & Weight Height 6 ft 1 in 06/28/24 07:14 Weight: 157 kg 06/28/24 07:14 Body Mass Index (BMI) 45.6 06/28/24 07:14 Respiratory Assessment Respiratory Assessment - instructor dancing: Respiratory Tract Infection Hx - instructor dancing Hx Respiratory Tract Infection No 06/27/24 09:51 STOP Sleep Apnea STOP Sleep Apnea - instructor dancing: STOP Sleep Apnea - instructor dancing Hx Hypertension Yes: CONTROLLED WITH MED 06/27/24 09:51 Hx Sleep Apnea Yes 06/27/24 09:51 CPAP Yes 06/27/24 09:51 BIPAP No 06/27/24 09:51 Do you snore loudly (louder than talking or can be heard Do you often feel tired/ fatigued/ sleepy during daytime? Has anyone observed you stop breathing during sleep? STOP Results Positive 06/27/24 09:51 QUESTION #5 FULL TEXT : Do you snore loudly (louder than talking or can be heard through closed doors)? 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 Specify any problems Hx of Preganancy in last 3 N/A 06/27/24 09:51 Months Nurse Filling Out Transfusion DSCHRIBER 06/27/24 09:51 & Questions: Date: 06/27/24 06/27/24 09:51 Time: 09:52 06/27/24 09:51 Patient unable to answer at this time (ie. confused, unrespo /Reproduction History /Reproductive History - instructor dancing: /Reproductive Hx- instructor dancing Hx Now No 06/27/24 09:51 Gestational Age (in weeks): EDC: Hx Hx Para Hx Section SAB No 06/27/24 09:51 Active Medications Active Medications: Current Medications Generic Name Dose Route Start Last Admin Trade Name Freq PRN Reason Stop Dose Admin Lactated Ringer's 1,000 mls @ 15 mls/hr 06/28/24 07:00 06/28/24 07:24 IV 15 mls/hr .Q48H PRINCE Administration PFSH Medical History Loss of hearing Wears glasses Wears dentures Diabetes Arthritis Anemia High cholesterol Restless legs Back pain Hypertension Non-smoker CPAP (continuous positive airway pressure) dependence Shortness of breath on exertion Leg cramps History of pain when walking History of edema Personal history of colonic polyps GERD (gastroesophageal reflux disease) Asthma 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 Home Medications ?Medication ?Instructions ?Recorded ?Last Taken ?Type cetirizine 10 mg capsule (Zyrtec) 10 mg PO QDAY allerg y symptoms 03/04/24 06/27/24 History omeprazole 20 mg capsule,delayed 20 mg PO QDAY 5 06/20/24 History release tirzepatide (weight loss) 2.5 2.5 mg (0.5 mL) subcut Q WEEK #2 mL 06/03/24 06/16/24 Rx mg/0.5 mL subcutaneous pen injector (Zepbound) atenolol 50 mg tablet 50 mg PO 1000 06/27/2406/27 History Allergy/AdvReac Type Severity Reaction Status Date / Time finasteride AdvReac Mild PT UNSURE Verified 06/28/24 07:12 OF REACTION Family History Mother Asthma Arthritis Breast cancer Thyroid disorder Cancer pancreatic Brother Asthma Arthritis Hypertension Sister Asthma Arthritis Breast cancer Thyroid disorder Hypertension Grandmother Arthritis Grandfather Arthritis Daughter Thyroid disorder Father Cancer lung Surgical History Hx of right cataract extraction Hx of left cataract extraction History of esophagogastroduodenoscopy (EGD) H/O colonoscopy H/O arthroscopic knee surgery History of surgical procedure H/O prostatectomy Social History household members: family current occupational status: employed 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
--- NOTE | 2024-06-28 08:00 | EGD_PTH ---
PATIENT: MARVA CHIRINOS LOC: EN U#:[id number] AGE/SX: 63/M ROOM: RE06/28/[address]: Dr. Oleg Yoon MD : 1960 BED: DIS: 06/28/2024 SPEC #: [id number] RECD: 06/28/24 11:33 STATUS: JULIEN BYRDDennis #: [id number] WOJCIECH: 06/28/24 08:[address]: Oleg Yoon DEPT: SURGICAL PATHOLOGY RECD BY: Ambrose Xavier ENTERED: 06/28/24 12:01 SP TYPE: EGD BIOPSY OT DR: Dr. Vidhya Moreno MD Tissues: A - Gastric mucous membrane B - Esophagus, NOS C - Ascending colon D - Transverse colon E - Descending colon Procedures: Immunohistochemical Stains Surgery Specimen Level IV HEADER OPERATION: Colonoscopy with biopsies, EGD with biopsies PRE-OP DIAGNOSIS: Personal history of colonic polyps, GERD TISSUE SUBMITTED: A- Antral biopsy - r/o h.pylori, B- Gastroesophageal junction biopsy- r/o Barett's esophagus, C- Ascending colon biopsy polyp, D- Transverse colon biopsy, E- Descending colon polyp biopsy MICROSCOPIC DIAGNOSIS A. Gastric antrum, biopsy: Antral mucosa with features of reactive gastropathy. IHC negative for H.pylori organisms. B. Gastroesophageal junction, biopsy: Squamous mucosa with reactive changes. Negative for eosinophils. C. Ascending colon polyp, biopsy: Tubular adenoma. D. Transverse colon, biopsy: Tubular adenoma. E. Descending colon polyp, biopsy: Tubular adenoma. MICROSCOPIC DESCRIPTION Slides are reviewed. All matched controls reacted appropriately. These tests were developed and their performance characteristics determined by [facility]. They may not have been cleared or approved by the U.S. Food and Drug Administration. The FDA has determined that such clearance or approval is not necessary. The above immunohistochemical/dualISH markers are ordered and reviewed by the Pathologist. GROSS DESCRIPTION A. Received in fixative is one container labeled with the patient's name and designated Antral biopsy. The specimen consists of one irregular fragment of light silva soft tissue that measures 0.5 x 0.3 x 0.2 cm. The specimen is totally submitted in one cassette. B. Received in fixative is one container labeled with the patient's name and designated GE junction. The specimen consists of two irregular fragments of light silva soft tissue that in aggregate measure 0.7 x 0.3 x 0.2 cm. The specimen is totally submitted in one cassette. C. Received in fixative is one container labeled with the patient's name and designated Ascending colon biopsy polyp. The specimen consists of one irregular fragment of light silva soft tissue that measures 0.3 x 0.3 x 0.2 cm. The specimen is totally submitted in one cassette. D. Received in fixative is one container labeled with the patient's name and designated Transverse colon biopsy. The specimen consists of one irregular fragment of light silva soft tissue that measures 0.3 x 0.3 x 0.2 cm. The specimen is totally submitted in one cassette. E. Received in fixative is one container labeled with the patient's name and designated Descending colon polyp biopsy. The specimen consists of two irregular fragments of light silva soft tissue that in aggregate measure 0.4 x 0.2 x 0.1 cm. The specimen is totally submitted in one cassette. 06/28/2024 CPT:[id number]
--- NOTE | 2024-06-28 08:38 | PCM.HP.STD ---
HPI - General General Date of Service: 06/28/24 Chief Complaint: EGD and colonoscopy HPI Narrative The patient is a 63-year-old male who is being seen today to schedule at least a colonoscopy as his last colonoscopy was about 10 years ago. He did have colon polyps on a previous colonoscopy so he is certainly overdue for colonoscopy. He had an EGD couple of years ago which was unremarkable however he states that his acid reflux symptoms seem to be worsening. As result his PCP is advising repeat EGD as well. Patient presents today to discuss the scopes and to get these scheduled. He denies any lower GI issues such as blood in his stools or black or tarry stools. He does have a family history of colon polyps as well. 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 Home Medications ?Medication ?Instructions ?Recorded ?Last Taken ?Type cetirizine 10 mg capsule (Zyrtec) 10 mg PO QDAY allergy symptoms 03/04/24 06/27/24 History omeprazole 20 mg capsule,delayed 20 mg PO QDAY 06/03/24 06/20/24 History release tirzepatide (weight loss) 2.5 2.5 mg (0.5 mL) subcut QWEEK #2 mL 06/03/24 06/16/24 Rx mg/0.5 mL subcutaneous pen injector (Zepbound) atenolol 50 mg tablet 50 mg PO 1000 06/27/24 06/27/24 History Allergy/AdvReac Type Severity Reaction Status Date / Time finasteride AdvReac Mild PT UNSURE Verified 06/28/24 07:12 OF REACTION Family History Mother Asthma Arthritis Breast cancer Thyroid disorder Cancer pancreatic Brother Asthma Arthritis Hypertension Sister Asthma Arthritis Breast cancer Thyroid disorder Hypertension Grandmother Arthritis Grandfather Arthritis Daughter Thyroid disorder Father Cancer lung Surgical History Hx of right cataract extraction Hx of left cataract extraction History of esophagogastroduodenoscopy (EGD) H/O colonoscopy H/O arthroscopic knee surgery History of surgical procedure H/O prostatectomy Social History household members: family current occupational status: employed 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[employer]) Smoking Status: Never smoker second hand exposure: No alcohol intake: never substance use type: does not use caffeine: No eating out: rarely or never do you feel safe at home: Yes Vital Signs Vital Signs Vital Signs: 06/28/24 07:14 06/28/24 07:14 06/28/24 07:29 Temperature 97.3 F L 97.3 F L Temperature Source Temporal Pulse Rate 61 61 Respiratory Rate 16 16 Respiratory Pattern Normal Blood Pressure 140/87 H 140/87 H Blood Pressure Mean 104 Blood Pressure Source Monitor Blood Pressure Position Semi-Fowlers Blood Pressure Location Right Arm Pulse Ox 99 99 Oxygen Delivery Method Room Air Weight Weight: 346 lb 2.012 oz Body Mass Index (BMI) 45.6 Physical Exam Const alert, oriented x3 and no apparent distress Assessment & Plan Assessment/Plan (1) Personal history of colonic polyps: (2) GERD (gastroesophageal reflux disease): PLAN: Plan EGD and colonoscopy planned for today.
--- NOTE | 2024-06-28 08:41 | HP.PCM_ITS ---
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 Home Medications ?Medication ?Instructions ?Recorded ?Last Taken ?Type cetirizine 10 mg capsule (Zyrtec) 10 mg PO QDAY allerg y symptoms 03/04/24 06/27/24 History omeprazole 20 mg capsule,delayed 20 mg PO QDAY 5 06/20/24 History release tirzepatide (weight loss) 2.5 2.5 mg (0.5 mL) subcut Q WEEK #2 mL 06/03/24 06/16/24 Rx mg/0.5 mL subcutaneous pen injector (Zepbound) atenolol 50 mg tablet 50 mg PO 1000 06/27/2406/27 History Allergy/AdvReac Type Severity Reaction Status Date / Time finasteride AdvReac Mild PT UNSURE Verified 06/28/24 07:12 OF REACTION Family History Mother Asthma Arthritis Breast cancer Thyroid disorder Cancer pancreatic Brother Asthma Arthritis Hypertension Sister Asthma Arthritis Breast cancer Thyroid disorder Hypertension Grandmother Arthritis Grandfather Arthritis Daughter Thyroid disorder Father Cancer lung Surgical History Hx of right cataract extraction Hx of left cataract extraction History of esophagogastroduodenoscopy (EGD) H/O colonoscopy H/O arthroscopic knee surgery History of surgical procedure H/O prostatectomy Social History household members: family current occupational status: employed 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[employer] ([employer]) Smoking Status: Never smoker second hand exposure: No alcohol intake: never substance use type: does not use caffeine: No eating out: rarely or never do you feel safe at home: Yes Vital Signs Vital Signs Vital Signs: 06/28/24 07:14 06/28/24 07:14 06/28/24 07:29 Temperature 97.3 F L 97.3 F L Temperature Source Temporal Pulse Rate 61 61 Respiratory Rate 16 16 Respiratory Pattern Normal Blood Pressure 140/87 H 140/87 H Blood Pressure Mean 104 Blood Pressure Source Monitor Blood Pressure Position Semi-Fowlers Blood Pressure Location Right Arm Pulse Ox 99 99 Oxygen Delivery Method Room Air Weight Weight: 346 lb 2.012 oz Body Mass Index (BMI) 45.6
--- NOTE | 2024-06-28 08:41 | HP.PCM_ITS ---
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 Home Medications ?Medication ?Instructions ?Recorded ?Last Taken ?Type cetirizine 10 mg capsule (Zyrtec) 10 mg PO QDAY allerg y symptoms 03/04/24 06/27/24 History omeprazole 20 mg capsule,delayed 20 mg PO QDAY 5 06/20/24 History release tirzepatide (weight loss) 2.5 2.5 mg (0.5 mL) subcut Q WEEK #2 mL 06/03/24 06/16/24 Rx mg/0.5 mL subcutaneous pen injector (Zepbound) atenolol 50 mg tablet 50 mg PO 1000 06/27/2406/27 History Allergy/AdvReac Type Severity Reaction Status Date / Time finasteride AdvReac Mild PT UNSURE Verified 06/28/24 07:12 OF REACTION Family History Mother Asthma Arthritis Breast cancer Thyroid disorder Cancer pancreatic Brother Asthma Arthritis Hypertension Sister Asthma Arthritis Breast cancer Thyroid disorder Hypertension Grandmother Arthritis Grandfather Arthritis Daughter Thyroid disorder Father Cancer lung Surgical History Hx of right cataract extraction Hx of left cataract extraction History of esophagogastroduodenoscopy (EGD) H/O colonoscopy H/O arthroscopic knee surgery History of surgical procedure H/O prostatectomy Social History household members: family current occupational status: employed 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[employer] ([employer]) Smoking Status: Never smoker second hand exposure: No alcohol intake: never substance use type: does not use caffeine: No eating out: rarely or never do you feel safe at home: Yes Vital Signs Vital Signs Vital Signs: 06/28/24 07:14 06/28/24 07:14 06/28/24 07:29 Temperature 97.3 F L 97.3 F L Temperature Source Temporal Pulse Rate 61 61 Respiratory Rate 16 16 Respiratory Pattern Normal Blood Pressure 140/87 H 140/87 H Blood Pressure Mean 104 Blood Pressure Source Monitor Blood Pressure Position Semi-Fowlers Blood Pressure Location Right Arm Pulse Ox 99 99 Oxygen Delivery Method Room Air Weight Weight: 346 lb 2.012 oz Body Mass Index (BMI) 45.6
--- NOTE | 2024-06-28 09:36 | PCM.POST.ANE ---
Anesthesia: Postop Eval I Current Vital Signs Temperature: 97 F Pulse Rate: 67 Blood Pressure: 104/74 Respiratory Rate: 16 Pulse Ox: 95 Oxygen Delivery Method: Room Air Assessment Airway patent: Yes Spontaneous unlabored respirations: Yes Mental status: Awake and Calm nausea: No Vomiting: No Anesthesia Complication: No Fluid Hydration Crystalloid volume administer (ml): 600 Total IV fluid infused: 600 Progress Note Anesthesia document: Postop Eval 1 completed: Yes
--- NOTE | 2024-06-28 09:39 | PCM.POSTANE2 ---
Anesthesia Postop Eval I Sum Postop Eval Completion status Anesthesia document: Postop Eval 1 completed: Yes Anesthesia Postop Eval I Summary Anesthesia Postop Eval I Summary: Anesthesia Postop Eval I: Assessment Summary Airway patent Yes 06/28/24 09:37 [email or web address] Spontaneous unlabored Yes 06/28/24 09:37 [email or web address] respirations Mental status Awake,Calm 06/28/24 09:37 [email or web address] nausea No 06/28/24 09:37 [email or web address] Vomiting No 06/28/24 09:37 [email or web address] Anesthesia Postop Eval I: Fluid Summary Crystalloid volume administer 600 06/28/24 09:37 [email or web address] (ml) Colloids volume administered ( ml) Blood Product volume administered (ml) Total IV fluid infused 600 06/28/24 09:37 [email or web address] Anesthesia Postop Eval I: Summary Notes Anesthesia Complication No 06/28/24 09:37 [email or web address] Anesthesia Complication Comment: Post-operative progress note Anesthesia: Postop Eval II Evaluation Mental status: Awake Pain Level: 0 nausea: No Vomiting: No
--- NOTE | 2024-06-28 09:40 | OP.EGD_ITS ---
Patient Name: Alphonso Wagner Procedure Date: 06/28/2024 8:33 AM Date of : 1960 Age: 63 Procedure: Upper GI endoscopy Indications: Heartburn Providers: Oleg Yoon MD Referring MD: Vidhya Moreno Md Medicines: Monitored Anesthesia Care Patient Profile: Refer to note in patient chart for documentation of history and physical. Patient has symptoms of acute heartburn. Refer to note in patient chart for documentation of history and physical. Patient has symptoms. Complications: No immediate complications. Estimated blood loss: Minimal. Procedure: Pre-Anesthesia Assessment: - Prior to the procedure, a History and Physical was performed, and patient medications and allergies were reviewed. The patient's tolerance of previous anesthesia was also reviewed. The risks and benefits of the procedure and the sedation options and risks were discussed with the patient. All questions were answered, and informed consent was obtained. Prior Anticoagulants: The patient has taken no anticoagulant or antiplatelet agents. ASA Grade Assessment: II - A patient with mild systemic disease. After reviewing the risks and benefits, the patient was deemed in satisfactory condition to undergo the procedure. After obtaining informed consent, the endoscope was passed under direct vision. Throughout the procedure, the patient's blood pressure, pulse, and oxygen saturations were monitored continuously. The gastroscope was introduced through the mouth, and advanced to the second part of duodenum. The upper GI endoscopy was accomplished without difficulty. The patient tolerated the procedure well. Moderate Sedation: See the other procedure note for documentation of moderate sedation with intraservice time. Scope In: 8:52:29 AM Scope Out: 8:59:40 AM Total Procedure Duration Time 0 hours 7 minutes 11 seconds Findings: The duodenal bulb was normal. No gross lesions were noted in the entire examined stomach. Biopsies were taken with a cold forceps for Helicobacter pylori testing. The examined esophagus was normal. Mucosa was biopsied with a cold forceps for histology randomly at the gastroesophageal junction. Verification of patient identification for the specimen was done by the nurse using the patient's name, date and medical record number. Impression: - Normal duodenal bulb. - No gross lesions in the entire stomach. Biopsied. - Normal esophagus. Biopsied. Recommendation: - Await pathology results. - Repeat upper endoscopy for screening purposes. - Continue present medications. Procedure Code(s): --- Professional --- 62667, Esophagogastroduodenoscopy, flexible, transoral; with biopsy, single or multiple Diagnosis Code(s): --- Professional --- R12, Heartburn CPT copyright 2021 [employer]. All rights reserved. The codes documented in this report are preliminary and upon exercise planner review may be revised to meet current compliance requirements. Oleg Yoon MD 06/28/2024 9:40:23 AM This report has been signed electronically. Number of Addenda: 0 Note Initiated On: 06/28/2024 8:33 AM
--- NOTE | 2024-06-28 09:41 | OP.CCLET_ITS ---
06/28/2024 Vidhya Moreno Md Re : Upper GI endoscopy procedure for Alphonso Wagner Dear Josh This procedure was performed on Friday, June 28, 2024. My impressions and recommendations are as follows: Impressions : - Normal duodenal bulb. - No gross lesions in the entire stomach. Biopsied. - Normal esophagus. Biopsied. Recommendations : - Await pathology results. - Repeat upper endoscopy for screening purposes. - Continue present medications. My findings are described in the full procedure note, which is enclosed. If I can be of further assistance, please feel free to contact me at . Sincerely, Oleg Yoon MD 06/28/2024 9:40:23 AM This report has been signed electronically.
--- NOTE | 2024-06-28 09:44 | OP.CCLET_ITS ---
06/28/2024 Vidhya Moreno Md Re : Colonoscopy procedure for Alphonso Wagner Dear Josh This procedure was performed on Friday, June 28, 2024. My impressions and recommendations are as follows: Impressions : - One 4 mm polyp in the ascending colon, removed with a cold biopsy forceps. Resected and retrieved. - One 4 mm polyp in the transverse colon, removed with a cold biopsy forceps. Resected and retrieved. - One 7 mm polyp in the descending colon, removed with a cold snare. Resected and retrieved. - Diverticulosis in the sigmoid colon. There was no evidence of diverticular bleeding. - The examination was otherwise normal on direct and retroflexion views. Recommendations : - Await pathology results. - Repeat colonoscopy in 5 years for surveillance. - Return to GI office PRN. - Continue present medications. My findings are described in the full procedure note, which is enclosed. If I can be of further assistance, please feel free to contact me at . Sincerely, Oleg Yoon MD 06/28/2024 9:43:56 AM This report has been signed electronically.
--- NOTE | 2024-06-28 09:44 | OP.COLON_ITS ---
Patient Name: Alphonso Wagner Procedure Date: 06/28/2024 9:00 AM Date of : 1960 Age: 63 Procedure: Colonoscopy Indications: Screening for colorectal malignant neoplasm Providers: Oleg Yoon MD Referring MD: Vidhya Moreno Md Medicines: Monitored Anesthesia Care Patient Profile: Refer to note in patient chart for documentation of history and physical. Patient has symptoms of acute heartburn. Refer to note in patient chart for documentation of history and physical. Patient has symptoms. Last Colonoscopy: more than 10 years ago. Complications: No immediate complications. Estimated blood loss: None. Procedure: Pre-Anesthesia Assessment: - Prior to the procedure, a History and Physical was performed, and patient medications and allergies were reviewed. The patient's tolerance of previous anesthesia was also reviewed. The risks and benefits of the procedure and the sedation options and risks were discussed with the patient. All questions were answered, and informed consent was obtained. Prior Anticoagulants: The patient has taken no anticoagulant or antiplatelet agents. ASA Grade Assessment: II - A patient with mild systemic disease. After reviewing the risks and benefits, the patient was deemed in satisfactory condition to undergo the procedure. After I obtained informed consent, the scope was passed under direct vision. Throughout the procedure, the patient's blood pressure, pulse, and oxygen saturations were monitored continuously. The adult colonoscope was introduced through the anus and advanced to the cecum, identified by appendiceal orifice and ileocecal valve. The ileocecal valve, appendiceal orifice, and rectum were photographed. The entire colon was well visualized. Moderate Sedation: See the other procedure note for documentation of moderate sedation with intraservice time. Scope In: 9:03:03 AM Scope Out: 9:21:21 AM Total Procedure Duration Time 0 hours 18 minutes 18 seconds Findings: The perianal and digital rectal examinations were normal. A 4 mm polyp was found in the ascending colon. The polyp was semi-sessile. The polyp was removed with a cold biopsy forceps. Resection and retrieval were complete. Verification of patient identification for the specimen was done by the nurse using the patient's name, date and medical record number. A 4 mm polyp was found in the transverse colon. The polyp was semi-sessile. The polyp was removed with a cold biopsy forceps. Resection and retrieval were complete. Verification of patient identification for the specimen was done by the nurse using the patient's name, date and medical record number. Estimated blood loss was minimal. A 7 mm polyp was found in the descending colon. The polyp was semi-sessile. The polyp was removed with a cold snare. Resection and retrieval were complete. Verification of patient identification for the specimen was done by the nurse. Multiple small-mouthed diverticula were found in the sigmoid colon. There was no evidence of diverticular bleeding. The exam was otherwise without abnormality on direct and retroflexion views. Impression: - One 4 mm polyp in the ascending colon, removed with a cold biopsy forceps. Resected and retrieved. - One 4 mm polyp in the transverse colon, removed with a cold biopsy forceps. Resected and retrieved. - One 7 mm polyp in the descending colon, removed with a cold snare. Resected and retrieved. - Diverticulosis in the sigmoid colon. There was no evidence of diverticular bleeding. - The examination was otherwise normal on direct and retroflexion views. Recommendation: - Await pathology results. - Repeat colonoscopy in 5 years for surveillance. - Return to GI office PRN. - Continue present medications. Procedure Code(s): --- Professional --- 80920, Colonoscopy, flexible; with removal of tumor(s), polyp(s), or other lesion(s) by snare technique 07192, 59, Colonoscopy, flexible; with biopsy, single or multiple Diagnosis Code(s): --- Professional --- Z12.11, Encounter for screening for malignant neoplasm of colon D12.2, Benign neoplasm of ascending colon D12.3, Benign neoplasm of transverse colon (hepatic flexure or splenic flexure) K57.30, Diverticulosis of large intestine without perforation or abscess without bleeding D12.4, Benign neoplasm of descending colon CPT copyright 2021 [employer]. All rights reserved. The codes documented in this report are preliminary and upon medical insurance coder review may be revised to meet current compliance requirements. Oleg Yoon MD 06/28/2024 9:43:56 AM This report has been signed electronically. Number of Addenda: 0 Note Initiated On: 06/28/2024 9:00 AM
== END 2024-06-28 10:24 | disposition home or self-care (01) ==
LOC: EN 06:43 → AC 06:44
PROVIDERS: PCP Internal Medicine; Referring Provider Internal Medicine; Visit Provider Surgery
PROC: 0DJD8ZZ Inspection of Lower Intestinal Tract, Via Natural or Artificial Opening Endoscopic (ICD-10-PCS; CPT 45378; principal; 2024-06-28 07:55)
DX: Z12.11 Encounter for screening for malignant neoplasm of colon (principal); E11.9 Type 2 diabetes mellitus without complications; K57.30 Diverticulosis of large intestine without perforation or abscess without bleeding; I10 Essential (primary) hypertension; K21.9 Gastro-esophageal reflux disease without esophagitis; D12.2 Benign neoplasm of ascending colon; D12.3 Benign neoplasm of transverse colon; D12.4 Benign neoplasm of descending colon; Z79.899 Other long term (current) drug therapy; Z86.0100 Personal history of colon polyps, unspecified
CPT/HCPCS: 45380; 45385; 43239; 88305; 88342; J2405

== ENCOUNTER → 2024-10-12 | Outpatient (CLI) | payer BC, SELFPAY ==
--- NOTE | 2024-10-12 07:55 | MRI_ITS ---
PROCEDURE: LOWER EXT JOINT ONLY (ROUTINE) 10/12/2024 REASON FOR EXAM: CHRONIC KNEE PAIN TECHNIQUE: T1, T2, PD, multiplanar multisequence images through the left knee were obtained without contrast. COMPARISON: March 08, 2024 FINDINGS: Bone Marrow: There is a 0.4 cm developing osteochondral defect in the central portion of the lateral patellar facet with no free fragment. There is subcortical cyst formation and adjacent marrow edema in the proximal tibia at the tibiofibular articulation. There is a 0.6 cm corticated osteochondral fragment in the posterior medial joint space. There is a 0.2 cm corticated osteochondral fragment in the anterior lateral joint space. Cruciate ligaments: There is a edema and attenuation throughout the anterior cruciate ligament with lax components in the middle and inferior aspect, grade 3 sprain. The posterior cruciate appears intact. Collateral ligaments: The medial collateral ligament appears intact. The lateral collateral ligament complex appears intact. Menisci: There is a blunted appearance of the body of the medial meniscus with the bucket-handle tear component in the intercondylar region. There is no tear seen in the lateral meniscus. Extensor mechanism: There is moderate tendinopathy of the distal quadriceps and proximal and distal patellar tendon without full-thickness tear. Effusion: There is a small joint effusion. There is no Hdz's cyst. 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 MRI/Lower Ext Joint Only (Routine) IMPRESSION: There is a 0.4 cm developing osteochondral defect in the central portion of the lateral patellar facet with no free fragment. There is subcortical cyst formation and adjacent marrow edema in the proximal t ibia at the tibiofibular articulation. There is a 0.6 cm corticated osteochondral fragment in the posterior medial anusha nt space. There is a 0.2 cm corticated osteochondral fragment in the anterior lateral anusha nt space. There is a edema and attenuation throughout the anterior cruciate ligament with lax components in the middle and inferior aspect, grade 3 sprain. There is a blunted appearance of the body of the medial meniscus with the bucke t-handle tear component in the intercondylar region. There is moderate tendinopathy of the distal quadriceps and proximal and distal patellar tendon without full-thickness tear. There is a small joint effusion. There is severe chondromalacia in the medial compartment and at the medial wharton llar facet. Reading Location: [id number]
--- OUTSIDE RECORDS SUMMARY | 2024-10-12 07:56 | XMS RPT_ITS | CCD ---
Author Organization [facility] Care Team Providers Care Costumed Character Name Role Phone Laura Gomez MD Primary Care Provider GUME GRAY Attending Unavailable GUME GRAY Referring Unavailable LAURA GOMEZ Primary Care UnavailGUME Newman Attending Unavailable LAURA GOMEZ Primary Care Unavailsang Gomez MD, Dr. Balderrama Primary Care Provider Patricia DIEGO, Dr. Balderrama Referring Provider Josh DIEGO, Dr. Kee Attending Provider Josh DIEGO, Dr. Kee Primary Care Provider [phone] Josh DIEGO, Dr. Kee Referring Provider Gaston DIEGO, Dr. Roche Attending Provider [phone] Gaston DIEGO, Dr. Roche Referring Provider [phone] Dr. Oleg Yoon MD Attending Provider Car DIEGO, Dr. Oleg Mercer Other Provider Josh DIEGO, Dr. Kee Primary Care Provider [phone] Josh DIEGO, Dr. Kee Attending Provider Josh DIEGO, Dr. Kee Referring Provider Juan Martinez Attending Provider Vidhya Moreno Attending Unavailable Laura Gomez Primary Care Unavailable Laura Gomez Referring Unavailable Vidhya Moreno Primary Care Unavailable Oleg Yoon Attending Unavailable Vidhya Moreno Referring Unavailable Josh, Vidhya Primary Care Unavailable Oleg Yoon Consulting Unavailable Oleg Yoon Attending Unavailable Houston, Vidhya Referring Unavailable Josh, Vidhya Primary Care Unavailable Houston, Vidhya Attending Unavailable Josh, Vidhya Referring Unavailable Josh, Vidhya Primary Care Unavailable Oleg Yoon Attending Unavailable Josh, Vidhya Referring Unavailable Josh, Vidhya Primary Care Unavailable Josh, Vidhya Referring Unavailable Houston, Vidhya Attending Unavailable Houston, Vidhya Primary Care Unavailable Josh, Vidhya Attending Unavailable Houston, Vidhya Referring Unavailable Houston, Vidhya Primary Care Unavailable Houston, Vidhya Attending Unavailable Josh, Vidhya Referring Unavailable Oleghe, Efewongbe Attending Unavailable Oleghe, Efewongbe Referring Unavailable Houston, Vidhya Primary Care Unavailable Houston, Vidhya Primary Care Unavailable Juan Martinez Attending Unavailable Josh, Vidhya Referring Unavailable Houston, Vidhya Primary Care Unavailable Houston, Vidhya Referring Unavailable Josh, Vidhya Attending Unavailable Allergies Allergy Classification Reported Allergen(s) Allergy Type Date of Onset Reaction(s) Facility (8 sources) Finasteride; Translations: [FINASTERIDE] Drug Allergy 03-30-2023 [facility] (1 source) Finasteride Drug Allergy 09-10-2024 [facility] Repository Medications Current Medications Medication Drug Class(es) Dates Sig (Normalized) Sig (Original) acetaminophen 325 mg / oxyCODONE hydrochloride 5 mg oral tablet (3 sources) Opioid Agonist Start: 03-25-2015 take 1-2 tablets by mouth every four hours as needed oxyCODONE-acetami nophen (PERCOCET) 5-325 mg tablet 1 to 2 po q 4 hours prn 30 tablet 0 03/25/2015 Active Comment on above: 1 to 2 po q 4 hours prn albuterol 0.21 mg/ml inhalation solution (3 sources) beta2-Adrenergic Agonist Albuterol Sulfate 0.63 mg/3 mL nebulizer solution Use 1 Ampule via nebulizer every 6 hours as needed for wheezing/shortnes s of breath. Active Comment on above: Use 1 Ampule via neb ulizer every 6 hours as needed for wheezing/shortness of breath. atenolol 50 mg oral tablet (20 sources) beta-Adrenergic Jaylene Start: 06-03-2024 End: 07-31-2024 take 1 tablet by mouth once daily Atenolol 50 mg tablet Active 50 mg PO daily 90 1 July 31, 2024 11:16am Start: 04-24-2015 End: 06-03-2024 Atenolol 25 mg tablet Discon tinued 50 mg PO 1630 90 0 April 08, 2024 3:46pm June 03, 2024 11:38am Start: 04-24-2015 Atenolol Activ e 50 MG PO 1630 April 24, 2015 1:00am Start: 01-14-2008 ATENOLOL 25 MG TAB Take one(1) tablet daily. 0 01/14/2008 Active Comment on above: Take one(1) tablet d aily. cetirizine hydrochloride 10 mg oral capsule (7 sources) Histamine-1 Receptor Antagonist Start: take 1 capsule by mouth once daily Cetirizine (Zyrtec) 10 mg capsule Active 10 mg PO daily March 04, 2024 1:00am allergy symptoms take 1 capsule by mo [facility] once daily as needed Cetirizine (ZYRTEC) 10 mg cap Take 10 mg by mouth once daily as needed. Active Comment on above: Take 10 mg by mouth once daily as needed. esomeprazole 40 mg delayed release oral capsule (3 sources) Proton Pump Inhibitor Start: 8 esomeprazole mag trihydrate(NEXIUM 40 MG CAP) Take one(1) to two(2) capsule daily. 0 01/14/2008 Active Comment on above: Take one(1) to two(2 ) capsule daily. etodolac 400 mg oral tablet (3 sources) Nonsteroidal Anti-inflammatory Drug Start: 2 take 1 tablet by mouth once daily as needed etodolac 400 mg ORAL tablet Take 1 tablet by mouth once daily as needed. 0 02/24/2011 Active Comment on above: Take 1 tablet by rodolfo once daily as needed. MULTI-VITAMIN ORAL (3 sources) MULTI-VITAMIN OR AL Take by mouth. Active MULTI-VITAMIN OR AL Take by mouth. 0 Active Comment on above: Take by mouth. Multivitamin With Minerals (2 sources) Start: 12-13-2019 Multivitamin With Minerals Active 1 EACH PO DAILY December 13, 2019 12:00am Tirzepatide (Weight Loss) (7 sources) Start: 09-10-2024 Tirzepatide (Weight Loss) 5 mg/0.5 mL pen injector Active 5 mg SC EVERY WEEK 2 2 September 10, 2024 11:19am Obstructive sleep apnea syndrome Morbid obesity with body mass index (BMI) of 45.0 to 49.9 in adult Prediabetes Obstructive sleep apnea (adult) (pediatric) Morbid (severe) obesity due to excess calories Body mass index [BMI] 45.0-49.9, adult Prediabetes Start: 07-31-2024 End: 09-10-2024 Tirzepatide (Weight Loss) 5 mg/0.5 mL pen injector Discontinued 5 mg SC EVERY WEEK 2 2 July 31, 2024 10:52am September 10, 2024 11:20am Obstructive sleep apnea syndrome Morbid obesity with body mass index (BMI) of 45.0 to 49.9 in adult Prediabetes Obstructive sleep apnea (adult) (pediatric) Morbid (severe) obesity due to excess calories Body mass index [BMI] 45.0-49.9, adult Prediabetes Start: 07-31-2024 Tirzepatide (W eight Loss) 5 mg/0.5 mL pen injector Active 5 mg SC EVERY WEEK 2 July 31, 2024 10:52am Start: 07-04-2024 End: 07-31-2024 Tirzepatide (Weight Loss) 5 mg/0.5 mL pen injector Discontinued 5 mg SC EVERY WEEK 2 0 July 04, 2024 9:22pm July 31, 2024 10:52am Obstructive sleep apnea syndrome Morbid obesity with body mass index (BMI) of 45.0 to 49.9 in adult Prediabetes Obstructive sleep apnea (adult) (pediatric) Morbid (severe) obesity due to excess calories Body mass index [BMI] 45.0-49.9, adult Prediabetes Start: 07-04-2024 End: 07-31-2024 Tirzepatide (Weight Loss) 5 mg/0.5 mL pen injector Discontinued 5 mg SC EVERY WEEK 2 July 04, 2024 9:22pm July 31, 2024 10:52am Start: 07-01-2024 End: 07-02-2024 Tirzepatide (Weight Loss) 5 mg/0.5 mL pen injector Discontinued 5 mg SC EVERY WEEK 2 July 01, 2024 8:17am July 02, 2024 12:37pm Obstructive sleep apnea syndrome Morbid obesity with body mass index (BMI) of 45.0 to 49.9 in adult Prediabetes Obstructive sleep apnea (adult) (pediatric) Morbid (severe) obesity due to excess calories Body mass index [BMI] 45.0-49.9, adult Prediabetes for 4 weeks Start: 07-01-2024 End: 07-02-2024 Tirzepatide (Weight Loss) 5 mg/0.5 mL pen injector Discontinued 5 mg SC EVERY WEEK 2 July 01, 2024 8:17am July 02, 2024 12:37pm for 4 weeks Vonoprazan (Voquezna) 10 mg tablet (4 sources) Start: 09-10-2024 take 1 tablet by mouth once daily Vonoprazan (Voquezna) 10 mg tablet Active 10 mg PO daily 90 30 September 10, 2024 11:12am Gastroesophageal reflux disease Gastro-esophageal reflux disease without esophagitis samples given Start: 08-08-2024 End: 09-10-2024 take 1 tablet by mouth once daily Vonoprazan (Voquezna) 10 mg tablet Discontinued 10 mg PO daily 30 30 August 08, 2024 7:43am September 10, 2024 11:12am Gastroesophageal reflux disease Gastro-esophageal reflux disease without esophagitis samples given Start: 07-31-2024 End: 08-08-2024 take 1 tablet by mouth once daily Vonoprazan (Voquezna) 10 mg tablet Discontinued 10 mg PO daily 14 July 31, 2024 12:00am August 08, 2024 7:44am samples given Start: 07-31-2024 take 1 tablet by rodolfo th once daily Vonoprazan (Voquezna) 10 mg tablet Active 10 mg PO daily July 31, 2024 12:00am samples given Completed/Discontinued Medications Medication Drug Class(es) Dates Sig (Normalized) Sig (Original) acetaminophen 325 mg / HYDROcodone bitartrate 5 mg oral tablet (6 sources) Opioid Agonist Start: 12-25-2019 End: 01-01-2020 take 1-10 tablets by mouth every four hours as needed for pain Hydrocodone-Acetami nophen 1 EACH tablet Discontinued 1 NMA PO EVERY 4 HOURS NEEDED as needed for Pain 1-10 Or Fever 14 7 0 December 25, 2019 December 31, 2019 1:00am January 01, 2020 1:02am Benign neoplasm of prostate Start: 12-25-2019 End: 01-01-2020 Hydrocodone-Acetaminophen Di scontinued 1 EACH PO EVERY 4 HOURS NEEDED 14 7 December 25, 2019 January 01, 2020 1:02am ciprofloxacin 500 mg oral tablet (6 sources) Quinolone Antimicrobial Start: 12-25-2019 End: 03-04-2024 take 1 tablet by mouth twice daily Ciprofloxacin Hcl 500 MG tablet Discontinued 500 mg PO TWICE A DAY 14 0 December 25, 2019 1:00am March 04, 2024 11:41am docusate sodium 100 mg oral capsule (6 sources) Start: 12-25-2019 End: 03-04-2024 take 1 capsule by mouth twice daily Docusate Sodium 100 MG capsule Discontinued 100 mg PO TWICE A DAY 20 0 December 25, 2019 1:00am March 04, 2024 11:41am ketoconazole 20 mg/ml topical cream (4 sources) Azole Antifungal Start: 03-04-2024 End: 06-27-2024 Ketoconazole 2 % cream Discontinued 1 NMA TOPICAL daily 15 0 March 04, 2024 1:00am June 27, 2024 9:49am Multivitamin With Minerals 1 EACH tablet (4 sources) Start: 12-13-2019 End: 03-04-2024 take 1 tablet by mouth once daily Multivitamin With Minerals 1 EACH tablet Discontinued 1 NMA PO DAILY December 13, 2019 12:00am March 04, 2024 11:41am omeprazole 20 mg delayed release oral capsule (16 sources) Proton Pump Inhibitor Start: 06-03-2024 End: 07-31-2024 take 1 capsule by mouth once daily Omeprazole 20 mg capsule,delayed release(DR/EC) Discontinued 20 mg PO daily June 03, 2024 12:00am July 31, 2024 10:58am Start: 03-04-2024 End: 04-18-2024 Omeprazole 20 mg capsule,del ayed release(DR/EC) Discontinued 40 mg PO 1629March 04, 2024 12:36pm April 18, 2024 4:47pm Start: 12-13-2019 End: 03-04-2024 Omeprazole 20 MG capsule Dis continued 80 mg PO 1629December 13, 2019 12:00am March 04, 2024 12:36pm Start: 12-13-2019 Omeprazole Act ted 80 MG PO 1629December 13, 2019 12:00am take 4 capsules by m outh once daily omeprazole (PRILOSEC) 10 mg capsule Take 40 mg by mouth once daily. Active Comment on above: Take 40 mg by mouth once daily. pantoprazole 40 mg delayed release oral tablet (8 sources) Proton Pump Inhibitor Start: 5 End: 5 take 1 tablet by mouth once daily Pantoprazole (Protonix) 40 mg tablet,delayed release (DR/EC) Discontinued 40 mg PO daily 30 May 13, 2024 12:01pm June 03, 2024 10:54am Proaxil (6 sources) Start: 0 End: Proaxil Discontinued 2 - 3 {tbl} PO DAILY December 13, 2019 12:00am March 04, 2024 11:41am Start: 12-13-2019 take 1 tablet by mouth once da neal Proaxil Active 2 - 3 TABLET PO DAILY December 13, 2019 12:00am tamsulosin hydrochloride 0.4 mg oral capsule (9 sources) alpha-Adrenergic Jaylene Start: 12-27-2012 End: 03-04-2024 Tamsulosin 0.4 MG capsule Discontinued 0.8 mg PO 1629December 27, 2012 1:00am March 04, 2024 11:41am Start: 12-27-2012 Tamsulosin Act ted 0.8 MG PO 1629December 27, 2012 1:00am Start: 03-15-2011 take 2 capsules by m outh once daily at bedtime tamsulosin (FLOMAX) 0.4 mg ORAL Cp24 Take 2 capsules by mouth daily at bedtime. 180 capsule 3 03/15/2011 Active Comment on above: Take 2 capsules by m outh daily at bedtime. Tirzepatide (Weight Loss) (5 sources) Start: 07-02-2024 End: 07-04-2024 Tirzepatide (Weight Loss) 2.5 mg/0.5 mL pen injector Discontinued 2.5 mg SC EVERY WEEK 2 July 02, 2024 12:37pm July 04, 2024 9:22pm Obstructive sleep apnea syndrome Morbid obesity with body mass index (BMI) of 45.0 to 49.9 in adult Prediabetes Obstructive sleep apnea (adult) (pediatric) Morbid (severe) obesity due to excess calories Body mass index [BMI] 45.0-49.9, adult Prediabetes for 4 weeks Start: 07-02-2024 End: 07-04-2024 Tirzepatide (Weight Loss) 2. 5 mg/0.5 mL pen injector Discontinued 2.5 mg SC EVERY WEEK 2 July 02, 2024 12:37pm July 04, 2024 9:22pm for 4 weeks Start: 06-03-2024 End: 07-01-2024 Tirzepatide (Weight Loss) (Z epbound) 2.5 mg/0.5 mL pen injector Discontinued 2.5 mg SC EVERY WEEK 2 June 03, 2024 12:00am July 01, 2024 8:17am Obstructive sleep apnea syndrome Morbid obesity with body mass index (BMI) of 45.0 to 49.9 in adult Prediabetes Obstructive sleep apnea (adult) (pediatric) Morbid (severe) obesity due to excess calories Body mass index [BMI] 45.0-49.9, adult Prediabetes for 4 weeks Start: 06-03-2024 End: 07-01-2024 Tirzepatide (Weight Loss) (Z epbound) 2.5 mg/0.5 mL pen injector Discontinued 2.5 mg SC EVERY WEEK 2 June 03, 2024 12:00am July 01, 2024 8:17am for 4 weeks Start: 06-03-2024 Tirzepatide (W eight Loss) (Zepbound) 2.5 mg/0.5 mL pen injector Active 2.5 mg SC EVERY WEEK 2 June 03, 2024 12:00am for 4 weeks Problems Active Problems Problem Classification Problem Date Documented Da te Episodic/Chronic Administrative/social admission (2 sources) First encounter by subject; Translations: [Persons encountering health services in other specified circumstances] 03-04-2024 Episodic Asthma (4 sources) Asthma; Translations: [Unspecified asthma, uncomplicated] 03-04-2024 Chronic Comment on above: MILD/NO INHALER Blindness and vision defects (4 sources) Eye / vision finding; Translations: [Unspecified visual disturbance] 03-04-2024 Episodic Cataract (4 sources) Bilateral cataracts; Translations: [Unspecified cataract] 03-04-2024 Chronic Diabetes mellitus without complication (7 sources) Prediabetes; Translations: [Prediabetes] Onset: 5 06-03-2024 Episodic Esophageal disorders (20 sources) Gastroesophageal reflux disease; Translations: [Gastro-esophageal reflux disease without esophagitis] Onset: 4 03-30-2023 Chronic Comment on above: MILD RELIEF WITH LILLI LOSEC Essential hypertension (17 sources) Essential hypertension; Translations: [Essential (primary) hypertension] Onset: 6 03-12-2015 Chronic Hyperplasia of prostate (6 sources) Benign prostatic hypertrophy with outflow obstruction; Translations: [Benign prostatic hyperplasia with lower urinary tract symptoms] 12-25-2019 Chronic Mycoses (2 sources) Tinea cruris; Translations: [Tinea cruris] 03-04-2024 Episodic Other and unspecified benign neoplasm (12 sources) History of polyp of colon; Translations: [Personal history of colonic polyps] Onset: 6 03-12-2015 Episodic Other connective tissue disease (1 source) Disease suspected; Translations: [Other symptoms and signs involving the nervous system] 03-04-2024 Episodic Other connective tissue disease (1 source) Suspected respiratory disease; Translations: [Other symptoms and signs involving the nervous system] 03-04-2024 Episodic Other ear and sense organ disorders (4 sources) Hearing difficulty; Translations: [Unspecified hearing loss, bilateral] 03-04-2024 Chronic Other gastrointestinal disorders (1 source) Heartburn; Translations: [Heartburn] 04-12-2023 Episodic Other infections; including parasitic (4 sources) Recurrent infectious disease; Translations: [Unspecified infectious disease] 03-04-2024 Episodic Other nervous system disorders (2 sources) Other chronic pain; Translations: [Other chronic pain] Onset: 5 Chronic Other non-traumatic joint disorders (10 sources) Pain in left knee; Translations: [Chronic pain of left knee] Onset: 5 03-04-2024 Episodic Other nutritional; endocrine; and metabolic disorders (5 sources) Morbid obesity; Translations: [Morbid (severe) obesity due to excess calories] Onset: 2 02-24-2011 Chronic Other nutritional; endocrine; and metabolic disorders (6 sources) Body mass index 40+ - severely obese; Translations: [Morbid (severe) obesity due to excess calories] 06-03-2024 Chronic Other nutritional; endocrine; and metabolic disorders (1 source) Morbid (severe) obesity due to excess calories; Translations: [Morbid (severe) obesity due to excess calories] Onset: 5 Chronic Other nutritional; endocrine; and metabolic disorders (1 source) Body mass index (BMI) 45.0-49.9, adult; Translations: [Body mass index [BMI] 45.0-49.9, adult] Onset: 5 Chronic Other skin disorders (2 sources) Excessive sweating; Translations: [Generalized hyperhidrosis] 03-04-2024 Episodic Other upper respiratory disease (8 sources) Seasonal allergy; Translations: [Other seasonal allergic rhinitis] 03-04-2024 Chronic Other upper respiratory disease (1 source) Other seasonal allergic rhinitis; Translations: [Other seasonal allergic rhinitis] Onset: 5 Chronic Residual codes; unclassified (6 sources) Obstructive sleep apnea syndrome; Translations: [Obstructive sleep apnea (adult) (pediatric)] 06-03-2024 Chronic Residual codes; unclassified (1 source) Obstructive sleep apnea (adult) (pediatric); Translations: [Obstructive sleep apnea (adult) (pediatric)] Onset: 5 Chronic Unclassified (4 sources) Encounter for screening for malignant neoplasm of colon; Translations: [Z12.11 - Encounter for screening for malignant neoplasm of colon] Unclassified (1 source) Personal history of colon polyps, unspecified; Translations: [Personal history of colon polyps, unspecified] Onset: 5 Past or Other Problems Problem Classification Problem Date Documented Da te Episodic/Chronic Anal and rectal conditions (3 sources) Anorectal pain; Translations: [Other specified diseases of anus and rectum] Onset: 01-14-2008 01-14-2008 Episodic Esophageal disorders (3 sources) Esophagitis; Translations: [Esophagitis, unspecified] Onset: 06-23-2005 06-23-2005 Episodic Gastritis and duodenitis (3 sources) Acute gastritis; Translations: [Acute gastritis without bleeding] Onset: 06-23-2005 06-23-2005 Episodic Gastrointestinal hemorrhage (3 sources) Hemorrhage of rectum and anus; Translations: [Hemorrhage of anus and rectum] Onset: 01-14-2008 01-14-2008 Episodic Genitourinary symptoms and ill-defined conditions (12 sources) Urgent desire to urinate; Translations: [Urgency of urination] Onset: 02-24-2011 02-24-2011 Episodic Hemorrhoids (6 sources) Internal hemorrhoids; Translations: [Other hemorrhoids] Onset: 01-14-2008 01-14-2008 Episodic Immunizations and screening for infectious disease (3 sources) Immunization due; Translations: [Encounter for immunization] Onset: 03-04-2024 03-04-2024 Episodic Other gastrointestinal disorders (1 source) Heartburn; Translations: [Heartburn] Onset: 04-12-2023 Episodic Other male genital disorders (3 sources) Disorder of male genital organ; Translations: [Hydrocele, unspecified] Onset: 02-24-2011 02-24-2011 Episodic Other male genital disorders (3 sources) Pain in testicle; Translations: [Testicular pain, unspecified] Onset: 02-24-2011 02-24-2011 Episodic Other screening for suspected conditions (not mental disorders or infectious disease) (3 sources) Patient encounter status; Translations: [Encounter for screening for malignant neoplasm of colon] Onset: 07-05-2024 03-04-2024 Episodic Results Test Name Value Interpretation Reference Range Facility Internal Medicine Office Vis ito 09-09-2024 Internal Medicine Office Visit [facility] [address] [place] [address] OFFICE VISIT Date of Service: 09/10/24 MR#: [id number] Acct: [id number] Name: MARVA WAGNER Susanne Rep #: [id number] : 1960 Provider: Dr. Vidhya ziegler MD Age/Sex: 63/M Location: [facility] Status: Signed Intake Vital Signs 07/31/24 10:26 09/10/24 10:52 Height 6 ft 6 ft Weight: 337 lb BMI 45.7 BP 132/92 H Blood Pressure Location Lt brachial Position Sitting Respiration 18 Pulse 74 Pulse Source Monitor Temp 97.3 F L Temp Source Temporal Pulse Oximetry (%) 93 Oxygen Delivery Method room air Intake Visit Reasons: 6 wk FU [place] Required: No Accompanied by: Self Is patient in pain?: Yes (right heel) Pain scale (1-10): 4 Allergies finasteride Adverse Reaction (Mild, Verified 09/10/24 10:51) PT UNSURE OF REACTION Medications ???Medication ???Instructions ???Recorded ???Confirmed ???Type cetirizine 10 mg capsule (Zyrtec) 10 mg PO QDAY allergy symptoms 09/10/24 History atenolol 50 mg tablet 50 mg PO QDAY #90 tabs 07/31/24 Rx tirzepatide (weight loss) 5 mg/0.5 5 mg (0.5 mL) subcut QWEEK #2 mL 09/10/24 09/10/24 Rx mL subcutaneous pen injector vonoprazan 10 mg tablet (Voquezna) 10 mg PO QDAY 30 days #90 tabs 0 09/10/24 09/10/24 Rx PFSH Medical History Loss of hearing Wears glasses Wears dentures Diabetes Arthritis Anemia High cholesterol Restless legs Back pain Hypertension Non-smoker CPAP (continuous positive airway pressure) dependence Shortness of breath on exertion Leg cramps History of pain when walking History of edema Personal history of colonic polyps GERD (gastroesophageal reflux disease) Asthma 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 Surgical History Hx of right cataract extraction Hx of left cataract extraction History of esophagogastroduodenoscopy (EGD) H/O colonoscopy H/O arthroscopic knee surgery History of surgical procedure H/O prostatectomy Family History Mother Asthma Arthritis Breast cancer Thyroid disorder Cancer pancreatic Brother Asthma Arthritis Hypertension Sister Asthma Arthritis Breast cancer Thyroid disorder Hypertension Grandmother Arthritis Grandfather Arthritis Daughter Thyroid disorder Father Cancer lung Social History household members: family current occupational status: employed 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 He is up to date on his routine blood work and screening. He doesn't want any shingles vaccines. He states he may consider a pneumonia vaccine at a future office visit. He doesn't smoke and does need any refills. He has been trying to eat healthier. He reports he remains active at work, but hasn't been doing much else. He doesn't check his blood pressure at home. He is taking his medication as prescribed for the most part. He doesn't monitor his salt intake stating he eats a lot of processed foods. The patient saw NATALIYA Alatorre, last month for his GERD. He was started on voquenza and states that has made a significant difference. He denies any problems with the medication and reports his symptoms have resolved. He had an EGD and colonoscopy since he was last seen which didn't show any significant findings. The patient follow with ENT, Dr. Kim, for his allergies and deviated septum. He reports his symptoms seem to be doing better recently. He also gets allergy shots with them and takes zyrtec daily. He reports he currently has a sinus infection and is completing a course of antibiotics. He reports that he will be changing from a CPAP to a biPAP through pulmonology, Dr. Barber. He states they are working with him to find something that he tolerates better. He states he continues to have problems with his knees, left more than right. He states since he was last seen, he has also been having problems with his foot and ankle. He also questions if he may have a plantar wart on his heel and would like to have that looked at. He hasn't been taking or doing anything for his pain. He previously tried celebrex and mobic, but didn't find them helpful. He did physical therapy back in April and felt that it made his pain worse. He is interested in getting an MRI to (more content not included)... Normal [facility] Internal Medicine Office Vis tana 07-31-2024 Internal Medicine Office Visit [facility] [address] [place] [address] [place] [address] OFFICE VISIT Date of Service: 07/31/24 MR#: [id number] Acct: [id number] Name: MARVA WAGNER Rep #: [id number] : 1960 Provider: NATALIYA Garcia Age/Sex: 63/M Location: [facility] Status: Signed Intake Vital Signs 06/03/24 10:57 06/28/24 07:14 07/31/24 10:26 Height 6 ft 6 ft 1 in 6 ft Weight: 345 lb BMI 46.7 BP 124/88 H Blood Pressure Location Lt brachial Position Sitting Respiration 18 Pulse 70 Pulse Source Monitor Temp 97.4 F L Temp Source Temporal Pulse Oximetry (%) 97 Oxygen Delivery Method room air Intake Visit Reasons: 1 m fu Chief Complaint: 1 m fu Allergies finasteride Adverse Reaction (Mild, Verified 07/31/24 10:25) PT UNSURE OF REACTION Medications ???Medication ???Instructions ???Recorded ???Confirmed ???Type cetirizine 10 mg capsule (Zyrtec) 10 mg PO QDAY allergy symptoms 07/31/24 History atenolol 50 mg tablet 50 mg PO QDAY #90 tabs 07/31/24 Rx tirzepatide (weight loss) 5 mg/0.5 5 mg (0.5 mL) subcut QWEEK #2 mL 07/31/24 07/31/24 Rx mL subcutaneous pen injector vonoprazan 10 mg tablet (Voquezna) 10 mg PO QDAY #14 tabs 07/31/24 07/31/24 Rx PFSH Medical History Loss of hearing Wears glasses Wears dentures Diabetes Arthritis Anemia High cholesterol Restless legs Back pain Hypertension Non-smoker CPAP (continuous positive airway pressure) dependence Shortness of breath on exertion Leg cramps History of pain when walking History of edema Personal history of colonic polyps GERD (gastroesophageal reflux disease) Asthma 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 Surgical History Hx of right cataract extraction Hx of left cataract extraction History of esophagogastroduodenoscopy (EGD) H/O colonoscopy H/O arthroscopic knee surgery History of surgical procedure H/O prostatectomy Family History Mother Asthma Arthritis Breast cancer Thyroid disorder Cancer pancreatic Brother Asthma Arthritis Hypertension Sister Asthma Arthritis Breast cancer Thyroid disorder Hypertension Grandmother Arthritis Grandfather Arthritis Daughter Thyroid disorder Father Cancer lung Social History household members: family current occupational status: employed 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 Patient has been on zepbound now for about 2 months now. He had to skip one dose due to have colonoscopy / EGD. He states that he has a little bit of diarrhea for a few days after the shot. He states that he has noticed some aggravation of his reflux. He states that he has changed his dietary intake a lot as well stating that he has been trying to eat a lot more fruits and vegetables. He states that he has a long history of knee pains and thus he can't be real active but he tries to do some chair exercises. He has a long history of GERD and has been on multiple medications in the past with some minor improvement at the same time he has continued with reflux symptoms including belching / burping with a bad taste in his mouth. Exam Const General: cooperative, comfortable, no acute distress and well developed Nutritional Appearance: obese morbidly obese Orientation: alert, awake and oriented x3 Limitations: mental status not altered HENMT Head: normocephalic and atraumatic Resp Effort Inspection: normal respiratory effort, able to speak in complete sentences, symmetric chest movement, normal respiratory pattern, no audible wheezes and no cough Auscultation: Bilateral: Clear to Auscultation Cardio Rate: regular rate Rhythm: regular rhythm Heart Sounds: S1 normal, S2 normal and no murmurs Bruits: no carotid bruits Pulses: radial pulses present bilaterally 2+ Neuro General: patient alert, patient awake, patient oriented x3 and moves all extremities Cognition: normal cognition Speech: speech normal Gait: normal gait Psych Appearance: grossly normal Mental Status: mental status grossly normal Mood: congruent mood Affect: normal affect Speech and Movement: speech and movement normal Attitude: cooperative Coding Level of Care Code (more content not included)... Normal [facility] Colonoscopy Reporton 025 Colonoscopy Report [facility] Medical Records Department [address] [place] [address] Colonoscopy Report MR#: [id number] Acct: [id number] Name: MARVA WAGNER Rep #: [id number] : 1960 63 From: Oleg Yoon MD PCP: Dr. Vidhya Moreno MD Status:[facility] Patient Name: Marva Wagner Procedure Date: 06/28/2024 9:00 AM Date of : 1960 Age: 63 Procedure: Colonoscopy Indications: Screening for colorectal malignant neoplasm Providers: Oleg Yoon MD Referring MD: Vidhya Moreno Md Medicines: Monitored Anesthesia Care Patient Profile: Refer to note in patient chart for documentation of history and physical. Patient has symptoms of acute heartburn. Refer to note in patient chart for documentation of history and physical. Patient has symptoms. Last Colonoscopy: more than 10 years ago. Complications: No immediate complications. Estimated blood loss: None. Procedure: Pre-Anesthesia Assessment: - Prior to the procedure, a History and Physical was performed, and patient medications and allergies were reviewed. The patient's tolerance of previous anesthesia was also reviewed. The risks and benefits of the procedure and the sedation options and risks were discussed with the patient. All questions were answered, and informed consent was obtained. Prior Anticoagulants: The patient has taken no anticoagulant or antiplatelet agents. ASA Grade Assessment: II - A patient with mild systemic disease. After reviewing the risks and benefits, the patient was deemed in satisfactory condition to undergo the procedure. After I obtained informed consent, the scope was passed under direct vision. Throughout the procedure, the patient's blood pressure, pulse, and oxygen saturations were monitored continuously. The adult colonoscope was introduced through the anus and advanced to the cecum, identified by appendiceal orifice and ileocecal valve. The ileocecal valve, appendiceal orifice, and rectum were photographed. The entire colon was well visualized. Moderate Sedation: See the other procedure note for documentation of moderate sedation with intraservice time. Scope In: 9:03:03 AM Scope Out: 9:21:21 AM Total Procedure Duration Time 0 hours 18 minutes 18 seconds Findings: The perianal and digital rectal examinations were normal. A 4 mm polyp was found in the ascending colon. The polyp was semi-sessile. The polyp was removed with a cold biopsy forceps. Resection and retrieval were complete. Verification of patient identification for the specimen was done by the nurse using the patient's name, date and medical record number. A 4 mm polyp was found in the transverse colon. The polyp was semi-sessile. The polyp was removed with a cold biopsy forceps. Resection and retrieval were complete. Verification of patient identification for the specimen was done by the nurse using the patient's name, date and medical record number. Estimated blood loss was minimal. A 7 mm polyp was found in the descending colon. The polyp was semi-sessile. The polyp was removed with a cold snare. Resection and retrieval were complete. Verification of patient identification for the specimen was done by the nurse. Multiple small-mouthed diverticula were found in the sigmoid colon. There was no evidence of diverticular bleeding. The exam was otherwise without abnormality on direct and retroflexion views. Impression: - One 4 mm polyp in the ascending colon, removed with a cold biopsy forceps. Resected and retrieved. - One 4 mm polyp in the transverse colon, removed with a cold biopsy forceps. Resected and retrieved. - One 7 mm polyp in the descending colon, removed with a cold snare. Resected and retrieved. - Diverticulosis in the sigmoid colon. There was no evidence of diverticular bleeding. - The examination was otherwise normal on direct and retroflexion views. Recommendation: - Await pathology results. - Repeat colonoscopy in 5 years for surveillance. - Return to GI office PRN. - Continue present medications. Procedure Code(s): --- Professional --- 68067, Colonoscopy, flexible; with removal of tumor(s), polyp(s), or other lesion(s) by snare technique 53094, 59, Colonoscopy, flexible; with biopsy, single or multiple Diagnosis Code(s): --- Professional --- Z12.11, Encounter for screening for malignant neoplasm of colon D12.2, Benign neoplasm of ascending colon D12.3, Benign neoplasm of transverse colon (hepatic flexure or splenic flexure) K57.30, Diverticulosis of large intestine without perforation or abscess without bleeding D12.4, Benign neoplasm of descending colon CPT copyright 2021 [employer]. All rights reserved. The codes documented in this report are preliminary and upon content checker review may be revised to meet current compliance (more content not included)... Normal [facility] EGD Reporton 06-28-2024 EGD Report [facility] Medical Records Department [address] [place] [address] EGD Report MR#: [id number] Acct: [id number] Name: MARVA WAGNER Rep #: [id number] : 1960 63 From: Oleg Yoon MD PCP: Dr. Vidhya Moreno MD Status[place] [facility] [place] Patient Name: Marva Wagner Procedure Date: 06/28/2024 8:33 AM Date of : 1960 Age: 63 Procedure: Upper GI endoscopy Indications: Heartburn Providers: Oleg Yoon MD Referring MD: Vidhya Moreno Md Medicines: Monitored Anesthesia Care Patient Profile: Refer to note in patient chart for documentation of history and physical. Patient has symptoms of acute heartburn. Refer to note in patient chart for documentation of history and physical. Patient has symptoms. Complications: No immediate complications. Estimated blood loss: Minimal. Procedure: Pre-Anesthesia Assessment: - Prior to the procedure, a History and Physical was performed, and patient medications and allergies were reviewed. The patient's tolerance of previous anesthesia was also reviewed. The risks and benefits of the procedure and the sedation options and risks were discussed with the patient. All questions were answered, and informed consent was obtained. Prior Anticoagulants: The patient has taken no anticoagulant or antiplatelet agents. ASA Grade Assessment: II - A patient with mild systemic disease. After reviewing the risks and benefits, the patient was deemed in satisfactory condition to undergo the procedure. After obtaining informed consent, the endoscope was passed under direct vision. Throughout the procedure, the patient's blood pressure, pulse, and oxygen saturations were monitored continuously. The gastroscope was introduced through the mouth, and advanced to the second part of duodenum. The upper GI endoscopy was accomplished without difficulty. The patient tolerated the procedure well. Moderate Sedation: See the other procedure note for documentation of moderate sedation with intraservice time. Scope In: 8:52:29 AM Scope Out: 8:59:40 AM Total Procedure Duration Time 0 hours 7 minutes 11 seconds Findings: The duodenal bulb was normal. No gross lesions were noted in the entire examined stomach. Biopsies were taken with a cold forceps for Helicobacter pylori testing. The examined esophagus was normal. Mucosa was biopsied with a cold forceps for histology randomly at the gastroesophageal junction. Verification of patient identification for the specimen was done by the nurse using the patient's name, date and medical record number. Impression: - Normal duodenal bulb. - No gross lesions in the entire stomach. Biopsied. - Normal esophagus. Biopsied. Recommendation: - Await pathology results. - Repeat upper endoscopy for screening purposes. - Continue present medications. Procedure Code(s): --- Professional --- 68242, Esophagogastroduodenoscopy, flexible, transoral; with biopsy, single or multiple Diagnosis Code(s): --- Professional --- R12, Heartburn CPT copyright 2021 [employer]. All rights reserved. The codes documented in this report are preliminary and upon content checker review may be revised to meet current compliance requirements. Oleg Yoon MD 06/28/2024 9:40:23 AM This report has been signed electronically. Number of Addenda: 0 Note Initiated On: 06/28/2024 8:33 AM 06/28/24 0940 Date Oleg Yoon MD Cosigner Signature: Date (if indicated) CC: Dr. Vidhya Moreno MD; Dr. Oleg Yoon MD Date Dictated: 06/28/2433 Date Transcribed: Lithopress Operator: PORSCHE Signed [facility] Immunohistochemical Stainson 06-28-2024 Immunohistochemical Stains -------- Patient Age/Sex Location Account Attending Physician -------- MARVA WAGNER 63/M EN [id number] Dr. Oleg Yoon MD -------- Specimen: [id number] Received: 06/28/24 Status: JULIEN Martin Num: [id number] Spec Type: EGD BIOPSY Subm Dr: Dr. Oleg Yoon MD HEADER OPERATION: Colonoscopy with biopsies, EGD with biopsies PRE-OP DIAGNOSIS: Personal history of colonic polyps, GERD TISSUE SUBMITTED: A- Antral biopsy - r/o h.pylori, B- Gastroesophageal junction biopsy- r/o Barett's esophagus, C- Ascending colon biopsy polyp, D- Transverse colon biopsy, E- Descending colon polyp biopsy -------- MICROSCOPIC DIAGNOSIS A. Gastric antrum, biopsy: Antral mucosa with features of reactive gastropathy. IHC negative for H.pylori organisms. B. Gastroesophageal junction, biopsy: Squamous mucosa with reactive changes. Negative for eosinophils. C. Ascending colon polyp, biopsy: Tubular adenoma. D. Transverse colon, biopsy: Tubular adenoma. E. Descending colon polyp, biopsy: Tubular adenoma. MICROSCOPIC DESCRIPTION Slides are reviewed. All matched controls reacted appropriately. These tests were developed and their performance characteristics determined by [facility]. They may not have been cleared or approved by the U.S. Food and Drug Administration. The FDA has determined that such clearance or approval is not necessary. The above immunohistochemical/dualISH markers are ordered and reviewed by the Pathologist. GROSS DESCRIPTION A. Received in fixative is one container labeled with the patient's name and designated Antral biopsy. The specimen consists of one irregular fragment of light silva soft tissue that measures 0.5 x 0.3 x 0.2 cm. The specimen is totally submitted in one cassette. B. Received in fixative is one container labeled with the patient's name and designated GE junction. The specimen consists of two irregular fragments of light silva soft tissue that in aggregate measure 0.7 x 0.3 x 0.2 cm. The specimen is totally submitted in one cassette. -------- Patient Age/Sex Location Account Attending Physician -------- KRISTYMARVA Pascual Susanne 63/M EN [id number] Dr. Oleg Yoon MD -------- C. Received in fixative is one container labeled with the patient's name and designated Ascending colon biopsy polyp. The specimen consists of one irregular fragment of light silva soft tissue that measures 0.3 x 0.3 x 0.2 cm. The specimen is totally submitted in one cassette. D. Received in fixative is one container labeled with the patient's name and designated Transverse colon biopsy. The specimen consists of one irregular fragment of light silva soft tissue that measures 0.3 x 0.3 x 0.2 cm. The specimen is totally submitted in one cassette. E. Received in fixative is one container labeled with the patient's name and designated Descending colon polyp biopsy. The specimen consists of two irregular fragments of light silva soft tissue that in aggregate measure 0.4 x 0.2 x 0.1 cm. The specimen is totally submitted in one cassette. 06/28/2024 CPT:26535t3,38235 -------- Patient Age/Sex Location Account Attending Physician -------- MARVA WAGNER 63/M EN [id number] Dr. Oleg Yoon MD -------- Signed (signature on file) Dr. Ale Aldridge MD 07/09/241657 -------- Normal [facility] Comment on above: Performed By: #### P [facility] ####[facility] [id number] [facility] [place], [address] MR/POSTOP.ANEon 06-28-2024 MR/POSTOP.[facility] Medical Records Department [address] [place] [address] Anesthesia Postop Eval I 06/28/24 0936 MR#: [id number] Acct: [id number] Name: MARVA WAGNER Rep #: [id number] : 1960 63 From: Tanner Dockery PCP: Dr. Vidhya Moreno MD Status:REG [place] Y Race: C Location: [place] [address] Anesthesia: Postop Eval I Current Vital Signs Temperature: 97 F Pulse Rate: 67 Blood Pressure: 104/74 Respiratory Rate: 16 Pulse Ox: 95 Oxygen Delivery Method: Room Air Assessment Airway patent: Yes Spontaneous unlabored respirations: Yes Mental status: Awake and Calm nausea: No Vomiting: No Anesthesia Complication: No Fluid Hydration Crystalloid volume administer (ml): 600 Total IV fluid infused: 600 Progress Note Anesthesia document: Postop Eval 1 completed: Yes 06/28/24936 Date Tanner Aaron Signature: Date CC: Signed Normal [facility] [id number] 06-28-2024 MR/POSTOPAN2 [facility] Medical Records Department [address] [place] [address] Anesthesia Postop Eval II 06/28/24 0939 MR#: [id number] Acct: [id number] Name: MARVA WAGNER Rep #: [id number] : 1960 63 From: Chago Spear MD PCP: Dr. Vidhya Moreno MD Status:REG [facility] [place] Y Race: C Location: [place] [address] Anesthesia Postop Eval I Sum Postop Eval Completion status Anesthesia document: Postop Eval 1 completed: Yes Anesthesia Postop Eval I Summary Anesthesia Postop Eval I Summary: Anesthesia Postop Eval I: Assessment Summary Airway patent Yes 06/28/24 09:37 [email or web address] Spontaneous unlabored Yes 06/28/24 09:37 [email or web address] respirations Mental status Awake,Calm 06/28/24 09:37 [email or web address] nausea No 06/28/24 09:37 [email or web address] Vomiting No 06/28/24 09:37 [email or web address] Anesthesia Postop Eval I: Fluid Summary Crystalloid volume administer 600 06/28/24 09:37 [email or web address] (ml) Colloids volume administered ( ml) Blood Product volume administered (ml) Total IV fluid infused 600 06/28/24 09:37 [email or web address] Anesthesia Postop Eval I: Summary Notes Anesthesia Complication No 06/28/24 09:37 [email or web address] Anesthesia Complication Comment: Post-operative progress note Anesthesia: Postop Eval II Evaluation Mental status: Awake Pain Level: 0 nausea: No Vomiting: No 06/28/24 0939 Date Chago Spear MD Cosigner Signature: Date CC: Signed Normal [facility] Surgery Visit Reporton 06-04 Surgery Visit Report [facility] [address] [place] [address] [address] [place] [address] OFFICE VISIT Date of Service: 06/04/24 MR#: [id number] Acct: [id number] Name: MARVA WAGNER Rep #: [id number] : 1960 Provider: Dr. Oleg morrison MD Age/Sex: 63/M Location: [facility] Status: Signed Intake Vital Signs 03/04/24 11:00 06/03/24 10:57 06/04/24 10:10 Height 6 ft 6 ft 6 ft 1 in Weight: 364 lb 368 lb 8 oz BMI 49.4 48.6 BP 136/84 H 156/97 H Blood Pressure Location Lt brachial Rt brachial Position Sitting Sitting Respiration 18 18 Pulse 68 70 Pulse Source Monitor Monitor Temp 97.2 F L 97.6 F L Temp Source Temporal Temporal Pulse Oximetry (%) 96 95 Oxygen Delivery Method room air Intake Visit Reasons: COLONOSCOPY, EGD Chief Complaint: C-Scope/EGD Edge Dyer Required: No Is patient in pain?: No Allergies finasteride Adverse Reaction (Mild, Verified 06/04/24 10:11) Other Medications ???Medication ???Instructions ???Recorded ???Confirmed ???Type cetirizine 10 mg capsule (Zyrtec) 10 mg PO QDAY PRN 03/04/24 History ketoconazole 2 % topical cream 1 applic topical QDAY #15 grams 06/04/24 Rx atenolol 50 mg tablet 50 mg PO 1630 #30 tabs 06/03/24 Rx omeprazole 20 mg capsule,delayed 20 mg PO QDAY 06/03/24 06/04/24 Hi story release tirzepatide (weight loss) 2.5 2.5 mg (0.5 mL) subcut QWEEK #2 mL 06/03/24 06/04/24 Rx mg/0.5 mL subcutaneous pen injector (Zepbound) Have you fallen in the past year?: No PFSH Medical History (Updated 06/04/24 @ 10:[address] Oleg Yoon MD) Personal history of colonic polyps Asthma Cataracts, bilateral GERD (gastroesophageal reflux disease) BPH with obstruction/lower urinary tract symptoms Carpal tunnel syndrome of left wrist Hearing difficulty of both ears Generalized arthritis Seasonal allergies High blood pressure Vision changes Chronic headaches Chronic bronchitis Surgical History History of esophagogastroduodenoscopy (EGD) H/O colonoscopy H/O arthroscopic knee surgery History of surgical procedure H/O prostatectomy Family History Mother Asthma Arthritis Breast cancer Thyroid disorder Cancer pancreatic Brother Asthma Arthritis Hypertension Sister Asthma Arthritis Breast cancer Thyroid disorder Hypertension Grandmother Arthritis Grandfather Arthritis Daughter Thyroid disorder Father Cancer lung Social History household members: family current occupational status: employed 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 He did have colon polyps on a previous colonoscopy so he is certainly overdue for colonoscopy. He had an EGD couple of years ago which was unremarkable however he states that his acid reflux symptoms seem to be worsening. As result his PCP is advising repeat EGD as well. Patient presents today to discuss the scopes and to get these scheduled. He denies any lower GI issues such as blood in his stools or black or tarry stools. He does have a family history of colon polyps as well. ROS General General: Yes weight change and fatigue; No appetite, colon cancer, breast cancer or weakness HEENT HEENT: Yes eye surgery; No difficulty swallowing, eye injury, swollen glands or hoarseness Endo Endocrine: No thyroid disease, diabetes mellitus, thyroid cancer, Hair loss, heat intolerance or cold intolerance Skin Skin: No rash or changing moles Breast Breast: No left breast lump, right breast lump, nipple discharge, breast pain, abnormal mammogram, abnormal US or breast enlargement Musc Musculoskeletal: Yes back problems and arthritis; No rheumatoid arthritis, gout or joint pain Cardio Cardiovascular: Yes high blood pressure; No murmur, pacemaker, heart disease, atrial fibrillation, heart attack, heart stent, palpitations, shortness of breath with exertion or chest pain Psych Psychiatric: No depression, anxiety or hearing voices Resp Respiratory: Yes shortness of breath, Yes sleep apnea, Yes cough, No COPD, Yes asthma, No emphysema and No wheezing Gastro Gastrointestinal: No abdominal pain, No nausea or vomiting, No diarrhea, No constipation, No blood in stool, Yes acid reflux, Yes hemorrhoids, (more content not included)... Normal [facility] Internal Medicine Office Vis itomaría 05-29-2024 Internal Medicine Office Visit [facility] [address] [place] [address] [place] [address] OFFICE VISIT Date of Service: 06/03/24 MR#: [id number] Acct: [id number] Name: MARVA WAGNER Rep #: [id number] : 1960 Provider: Dr. Vidhya ziegler MD Age/Sex: 63/M Location: [facility] [place] Status: Signed Intake Vital Signs 03/04/24 11:00 06/03/24 10:57 Height 6 ft 6 ft Weight: 364 lb BMI 49.4 BP 136/84 H Blood Pressure Location Lt brachial Position Sitting Respiration 18 Pulse 68 Pulse Source Monitor Temp 97.2 F L Temp Source Temporal Pulse Oximetry (%) 96 Intake Visit Reasons: MED DISCUSSION Edge Dyer Required: No Is patient in pain?: No Allergies finasteride Adverse Reaction (Mild, Verified 06/03/24 10:44) Other Medications ???Medication ???Instructions ???Recorded ???Confirmed ???Type cetirizine 10 mg capsule (Zyrtec) 10 mg PO QDAY PRN 03/04/24 History ketoconazole 2 % topical cream 1 applic topical QDAY #15 grams 03/04/24 Rx atenolol 50 mg tablet 50 mg PO 1630 #30 tabs 06/03/24 Rx omeprazole 20 mg capsule,delayed 20 mg PO QDAY 06/03/24 06/03/24 Hi story release tirzepatide (weight loss) 2.5 2.5 mg (0.5 mL) subcut QWEEK #2 mL 06/03/24 06/03/24 Rx mg/0.5 mL subcutaneous pen injector (Zepbound) Nurse's Note: States protonix is not helping states sx's got worse. Is having colonscopy tomorrow w/ Dr. Yoon, and possibly another EGD. States he is taking omeprazole 20mg qd otc which is helping some but not w/ the burning. Tried changing diet knows that red sauce flares it up and he steers clear. Denies dysphagia. FOR[facility]LY [facility] Medical History BPH with obstruction/lower urinary tract symptoms Carpal tunnel syndrome of left wrist Hearing difficulty of both ears Generalized arthritis Seasonal allergies High blood pressure Vision changes Chronic headaches Chronic bronchitis Surgical History H/O colonoscopy H/O arthroscopic knee surgery History of surgical procedure H/O prostatectomy Family History Mother Asthma Arthritis Breast cancer Thyroid disorder Cancer pancreatic Brother Asthma Arthritis Hypertension Sister Asthma Arthritis Breast cancer Thyroid disorder Hypertension Grandmother Arthritis Grandfather Arthritis Daughter Thyroid disorder Father Cancer lung Social History household members: family current occupational status: employed 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 He is up to date on his routine blood work and screening. He isn't due for any immunizations. He doesn't smoke and doesn't need any refills. He has been trying to eat healthier. He reports he will get [phone] steps per day at work. He does check his blood pressure at home occasionally and reports it is variable. He has provided some readings for review. His readings have ranged from 130s-150s/80s-90s with an average of 148/87 over the last 5 days. He is taking his medication as prescribed for the most part. He doesn't monitor his salt intake stating he eats a lot of premade meals. The patient continues to have problems with GERD. He reports that certain foods trigger him. He didn't feel the protonix was helping at all, so he stopped it and went back to an OTC dose of the omeprazole which he feels works better. He states he is still having burning. He has an appointment with general surgery scheduled for tomorrow to discuss getting an endoscopy. The patient follow with ENT, Dr. Kim, for his allergies and deviated septum. He reports his symptoms seem to be doing better recently. He also gets allergy shots with them takes zyrtec daily. Since he was last seen, he completed his sleep study which showed sleep apnea. He was started on a CPAP and has been following with sleep medicine. He reports that he has been wearing it most nights, but states it seems to be 'blowing off' where he will often take it off. He reports he has tried changing masks which didn't help. He thinks the pressure may be too high and plans on discussing it with his sleep provider. He reports his sweating had improved with stopping the omeprazole. He resumed it, however, due to GERD symptoms as above. He states with the lower dose, he feels that he is sweating (more content not included)... Normal [facility] PT D/C Summary (1)on 025 PT D/C Summary (1) [facility] [address] [place] [address] / REHABILITATION SERVICES DISCHARGE SUMMARY MR#: [id number] Acct: [id number] Name: MARVA WAGNER Rep #: [id number] : 1960 63 From: Chago Velez DPT, OCS, CSCS Referring Dr.: Dr. Melchor Feldman MD Status: REG RCR Insurance: [employer] SELF PAY INSURANCE Discharge Summary D/C summary: It has been my pleasure to treat MARVA WAGNER referred by Dr. Melchor Feldman MD, with the diagnosis of L knee pain for a total of 9 visit(s). Discharge Date: 05/13/24 Please see the following information for a summary of their discharge status. Subjective Subjective: Pool strengthens him up but still pain behind the knee. Hurt bad behind both knees Monday adn could not make it in. Helps to be in the pool. Doing HEP 3x/week. Sees Josh in late May. Not sure but injections might be next step. Pt thinks he needs next step. Pain L knee: Pain Intensity (Out of 10): 7 B ankles: Pain Intensity (Out of 10): 7 R hip: Pain Intensity (Out of 10): Unrated Overall Improvement % Improvement: 10 Objective Objective/Function: 0-115 AROM B knees, tightness L end range flexion. Mod tightness HS B and quad B. No antalgia in gait today but slow and lumbering. Ovrall not much improvd adn appropriate for next step with doctor(injection vs MRI according to patient) Goals Goal 1:: Work without increased pain in knees Goal Progress: Goal Met Goal 2:: I appropriate HEP to limit future problems(pool vs land/gym) Goal Progress: home, not gym Goal 3:: Pain in knees and feet 2/10 at worst adn 70% better Goal Progress: Progressing Goal 4:: LEFS 55 Goal Progress: Not Progressing Goal 5:: steps without noticing pain in L kne Goal Progress: Not Progressing Plan Plan: d/c to HEP, may benefit from more gym ex once pain is addressed D/C Information Discharge Comments: Back to doctor for next medical step. d/c sentence: If there are questions or concerns regarding this patient's physical therapy, please feel free to call me at [phone]. Thank you for the referral of this patient. Sincerely, Chago Velez DPT, HARSHAL, ANSELMO Balance/Gait/Functional tests Balance/Special Test Scores Lower Extremity Functional Score: 29 Improvement % Improvement: 05/13/24 1220 CC: Dr. Vidhya Moreno MD; Dr. Melchor Feldman MD EBG Signed Normal [facility] Inital Evaluation (1) - PTon 03-20-2024 Inital Evaluation (1) - PT [facility] [address] [place] [address] / REHABILITATION SERVICES INITIAL EVALUATION MR#: [id number] Acct: [id number] Name: MARVA WAGNER Rep #: [id number] : 1960 63 From: HARSHAL Anderson DPT, ANSELMO Referring Dr.: Dr. Melchor Feldman MD Status: REG RCR Insurance: [facility] SELF PAY INSURANCE Patient's Visit Information Visit Information Visit Information: MARVA WAGNER is a 63 year old M referred to Physical Therapy by Dr. Melchor Feldman MD with a diagnosis of L knee pain. Date of Evaluation: 03/20/24 Physical Therapist: Chago Velez DPT, HARSHAL, CSCS Visit Plan Frequency: 2x /Week Duration: 4-6 Weeks Plan: 2x/week for 4-6 weeks recommended to patient for activity modification, management of condition, stretching l3egs and strengthening /ROM hips and knees and ankles and core to an I pool or gym/HEP.Start with pool therapy where he has been oriented for stretching quad and HS, knee ROM and hip ext ROM, and core and LE strength to an I program. IE HEP: quad and HS stretch on bed 30 5x daily and LAQ throughout day as well as activitiy modification with keeping knee moving and not overdoing WB if he does not have to. Benefits of ex program. Pt wishes to see his doctor for possible injections prior to beginning and will call to schedule after he sees that doctor. Subjective Subjective: L >R knee pain for years chronic. They are worn out. x ray knees shows OA. Went to doctor and has had injections years ago 25 yrs ago which helped temporarily. has been putting up with it. Disability is an option. 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 Hurts worse end of day, can't sit often. 2-6/10 worse with dangling, sitting too long is worse, feet are worse end of work day as are feet. No meds or bracing for this, h/o R knee scope yrs ago. No ortho lately Hobbies: Tired at end of day so no hobbies. Works eats and sleeps, 9-11 hour shifts 5 days per week. No regular exercises. Pain L knee: Pain Intensity (Out of 10): 3 Pain Intensity Range: 2 and 6 Comment: both knees L worse Objective Objective: Walks back to PT slowly but I, wide VALERIE and short step length but safe and good balance. Trasnfers chair and bed I slowly. Large girth. Steps are reciprocal up and down with L knee pain in both directions and requires rails. AROM L knee 0-114 adn r knee 0-120. Pain at end ranges of flexion max tightness in HS at -40 and quad at 90 with hip neutral. Lots of tightness. Otherwise hip aROM WFL xcept extension limited to 5 B. ankle AROM WFL adn painfree today. reflexes 1/3 patella and achilles B. sensation LE WNL to gross light touch. strength hip flexion 3+, abd 3, ext 3, knee flexion 4- and knee ext 4+ B. ankles 5/5 B. - bounce home, - patellar grind B. Balance/Special Test Scores Lower Extremity Functional Score: 42 Goals Goal 1:: Work without increased pain in knees Goal Time Frame: 4-6 Weeks Goal 2:: I appropriate HEP to limit future problems(pool vs land/gym) Goal Time Frame: 4-6 Weeks Goal 3:: Pain in knees and feet 2/10 at worst adn 70% better Goal Time Frame: 4-6 Weeks Goal 4:: LEFS 55 Goal Time Frame: 4-6 Weeks Goal 5:: steps without noticing pain in L kne Goal Time Frame: 4-6 Weeks Rehabilitation Potential Physical Therapy Diagnosis: L knee pain likely degenerative in nature and poorly managed making mobility uncomfortable. Rehabilitation Potential: Fair Anticipated Interventions Patient/Client Instruction: Educate patient on: Condition and Plan of Care For the Purpose of:: To decrease pain, To increase ROM, To improve nutrient delivery to tissue, To improve muscle performance and motor function, To increase tolerance to activity/condition/position, To improve ability of physical actions for home/community/work/leisure and To improve gait and locomotor functions Therapeutic Exercise to Include: Strength training, Flexibilty training, In an aquatic setting, Passive ROM and Active ROM For the Purpose of:: To decrease pain, To decrease swelling/inflammation, To increase ROM, To improve nutrient delivery to tissue, To improve muscle performance and motor function, To increase tolerance to activity/condition/position and To improve ability of physical actions for home/community/work/leisure Text: Thank you for the opportunity to evaluate your patient. For Medicare and Medicare HMO plans, please review the plan of care and approve it. It will need to be FAXED BACK to us at [phone] for Medicare purposes. For Medicare only, by signing this I certify the plan of care. Please let me know if there are questions or concerns regarding this plan of care. Physician Signature: ___Date: 03/20/24 1139 CC: Dr. Martínez (more content not included)... Normal [facility] Knee 4 or More Viewson 03-08 Knee 4 or More Views [facility] [address] [place], [place] [address] Knee 4 or More Views MR#: [id number] Acct: [id number] Name: MARVA WAGNER Rep #: [id number] : 1960 M 63 From: Sean Clifton MD PCP: Dr. Vidhya Moreno MD Status: REG CLI Study: Knee 4 or More Views Date of Exam: 03/08/24 Exam# [id number] Ordering Dr: Vidhya Moreno MD :[id number] STUDY: X-RAY - LEFT KNEE REASON FOR EXAM: Male, 63 years old. Knee pain. TECHNIQUE: 4 views of the left knee. COMPARISON: Left knee radiographs dated 11/02/2005. FINDINGS: Normal visualized distal femur. Normal visualized proximal tibia and fibula. Normal proximal tibiofibular articulation. There is no demonstrated fracture. There is new moderate degenerative arthrosis of the medial femorotibial compartment with moderate joint space narrowing. There is new mild degenerative arthrosis of the lateral femorotibial compartment. There is new mild degenerative arthrosis of the patellofemoral articulation. The soft tissue structures are unremarkable. RAD/Knee 4 or More Views IMPRESSION: New tricompartment degenerative arthrosis of the left knee, most pronounced in the medial femorotibial compartment. Electronically Signed: Sean Clifton MD at 10:33 EST Reading Location ID and State: [address] [place] [address] , Service support , CC: Dr. Vidhya Moreno MD [employer] Operator: Signed Normal [facility] Absolute lymphocyte countOrd ered By: Vidhya Moreno on 03-04-2024 Lymphocytes Auto (Unsp spec) [#/Vol] 1.19 10*3/uL 0.83-4.51 [facility] Absolute neutrophil countOrd ered By: Vidhya Moreno on 03-04-2024 Neutrophils (Bld) [#/Vol] 4.5 10*3/uL 2.0-7.7 [facility] Albumin to globulin ratioOrd ered By: Vidhya Moreno on 03-04-2024 Albumin/Globulin [Mass ratio] 1.0 {ratio} 0.9-2.4 [facility] Automated lymphocyte count a s percentage of total leukocytesOrdered By: Vidhya Moreno on 03-04-2024 Lymphocytes/100 WBC Auto (Unsp spec) 18.5 % Low -41 [facility] Basophil percentageOrdered B y: Vidhya Moreno on 03-04-2024 Basophils/100 WBC (Bld) 1.2 % High 0-1 [facility] Bilirubin, totalOrdered By: Vidhya Moreno on 03-04-2024 Bilirubin [Mass/Vol] 0.30 mg/dL 0.20-1.00 [facility] Comment on above: For patients on eltr ombopag therapy, use of Dimension [place] TBIL is not recommended. Blood urea nitrogen (BUN)/cr eatinine ratioOrdered By: Vidhya Moreno on 03-04-2024 Urea nitrogen/Creatinine [Mass ratio] 12.9 mg/mg 10-20 [facility] CBC W/Diff, Automatedon 02-14 Absolute Lymph 1.19 X10 3/uL Normal 0.83-4.51 [facility] Comment on above: Performed By: #### L 500.4050, L501.9520, L500.4100, L100.0100 #### [facility] [address] [place], [address] Absolute Neut 4.5 X10 3/uL Normal 2.0-7.7 [facility] Comment on above: Performed By: #### L 500.4050, L501.9520, L500.4100, L100.0100 #### [facility] [address] [place], [address] Basophils/100 WBC (Bld) 1.2 % High 0-1 [facility] Comment on above: Performed By: #### L 500.4050, L501.9520, L500.4100, L100.0100 #### [facility] [address] [place], [address] Eosinophils/100 WBC (Bld) 1.7 % Normal 0-5 [facility] Comment on above: Performed By: #### L 500.4050, L501.9520, L500.4100, L100.0100 #### [facility] [address] [place], [address] Erythrocyte distribution width (RBC) [Ratio] 13.1 % Normal 11.6-14.6 [facility] Comment on above: Performed By: #### L 500.4050, L501.9520, L500.4100, L100.0100 #### [facility] [address] [place], [address] Hematocrit (Bld) [Volume fraction] 49.8 % Normal 40-54 [facility] Comment on above: Performed By: #### L 500.4050, L501.9520, L500.4100, L100.0100 #### [facility] [address] [place], [address] Hemoglobin (Bld) [Mass/Vol] 15.7 g/dL Normal 13.0-16.5 [facility] Comment on above: Performed By: #### L 500.4050, L501.9520, L500.4100, L100.0100 #### [facility] [address] [place], [address] IG% 0.500 Normal 0.0-0.9 [facility] Comment on above: Result Comment: IG% - Immature Granulocytes (promyelocytes, myelocytes and metamyelocytes) > 1% indicates that a LEFT SHIFT is Present. Performed By: #### L 500.4050, L501.9520, L500.4100, L100.0100 #### [facility] [address] [place], [address] Lymphocytes/100 WBC (Bld) 18.5 % Low 19-41 [facility] Comment on above: Performed By: #### L 500.4050, L501.9520, L500.4100, L100.0100 #### [facility] [address] [place], [address] MCH (RBC) [Entitic mass] 26.4 pg Low 27.0-32.0 [facility] Comment on above: Performed By: #### L 500.4050, L501.9520, L500.4100, L100.0100 #### [facility] [address] [place], [address] MCHC (RBC) [Mass/Vol] 31.5 g/dL Low 32-36 [facility] Comment on above: Performed By: #### L 500.4050, L501.9520, L500.4100, L100.0100 #### [facility] [address] [place], [address] MCV (RBC) [Entitic vol] 83.8 fL Normal 80-94 [facility] Comment on above: Performed By: #### L 500.4050, L501.9520, L500.4100, L100.0100 #### [facility] [address] [place], [address] Monocytes/100 WBC (Bld) 8.4 % Normal 0-10 [facility] Comment on above: Performed By: #### L 500.4050, L501.9520, L500.4100, L100.0100 #### [facility] [address] [place], [address] Neutrophils/100 WBC (Bld) 69.7 % Normal 47-70 [facility] Comment on above: Performed By: #### L 500.4050, L501.9520, L500.4100, L100.0100 #### [facility] [address] [place], [address] Nucleated RBC (Bld) [#/Vol] 0 10*3/uL Normal 0-5 [facility] Comment on above: Performed By: #### L 500.4050, L501.9520, L500.4100, L100.0100 #### [facility] [address] [place], [address] Platelet mean volume (Bld) [Entitic vol] 10.1 fL Normal 6.2-12.0 [facility] Comment on above: Performed By: #### L 500.4050, L501.9520, L500.4100, L100.0100 #### [facility] [address] [place], [address] Platelets (Bld) [#/Vol] 266 10*3/uL Normal 150-450 [facility] Comment on above: Performed By: #### L 500.4050, L501.9520, L500.4100, L100.0100 #### [facility] [address] [place], [address] RBC (Bld) [#/Vol] 5.94 10*6/uL Normal 4.6-6.2 [facility] Comment on above: Performed By: #### L 500.4050, L501.9520, L500.4100, L100.0100 #### [facility] [address] [place], [address] RDW SD 39.9 fl Normal 35.1-43.9 [facility] Comment on above: Performed By: #### L 500.4050, L501.9520, L500.4100, L100.0100 #### [facility] [address] [place], [address] WBC (Bld) [#/Vol] 6.4 10*3/uL Normal 4.4-11.0 [facility] Comment on above: Performed By: #### L 500.4050, L501.9520, L500.4100, L100.0100 #### [facility] [address] [place], [address] Carbon dioxide measurementOr dered By: Vidhya Moreno on 03-04-2024 CO2 [Moles/Vol] 28.0 mmol/L 21.0-32.0 [facility] Chloride measurementOrdered By: Vidhya Moreno on 03-04-2024 Chloride [Moles/Vol] 106 mmol/L 98-107 [facility] Comprehensive Metabolic Prof ilon 03-04-2024 Albumin [Mass/Vol] 3.5 g/dL Normal 3.2-5.0 [facility] Comment on above: Performed By: #### L 500.4050, L501.9520, L500.4100, L100.0100 ####[facility] [address] [place], [address] Albumin/Globulin [Mass ratio] 1.0 {ratio} Normal 0.9-2.4 [facility] Comment on above: Performed By: #### L 500.4050, L501.9520, L500.4100, L100.0100 ####[facility] [address] [place], [address] ALK P 69 U/L Normal 45-117 [facility] Comment on above: Performed By: #### L 500.4050, L501.9520, L500.4100, L100.0100 ####[facility] [address] [place], [address] ALT [Catalytic activity/Vol] 31 U/L Normal 16-61 [facility] Comment on above: Performed By: #### L 500.4050, L501.9520, L500.4100, L100.0100 ####[facility] [address] [place], [address] AST [Catalytic activity/Vol] 20 U/L Normal 15-37 [facility] Comment on above: Performed By: #### L 500.4050, L501.9520, L500.4100, L100.0100 ####[facility] [address] [place], [address] Bilirubin [Mass/Vol] 0.30 mg/dL Normal 0.20-1.00 [facility] Comment on above: Result Comment: For patients on eltrombopag therapy, use of Dimension [place] TBIL is not recommended. Performed By: #### L 500.4050, L501.9520, L500.4100, L100.0100 ####[facility] [address] [place], [address] BUN/CRE 12.9 RATIO Normal 10-20 [facility] Comment on above: Performed By: #### L 500.4050, L501.9520, L500.4100, L100.0100 ####[facility] [address] [place], [address] CA,Total 9.4 mg/dL Normal 8.5-10.1 [facility] Comment on above: Performed By: #### L 500.4050, L501.9520, L500.4100, L100.0100 ####[facility] [address] [place], [address] Chloride [Moles/Vol] 106 mmol/L Normal 98-107 [facility] Comment on above: Performed By: #### L 500.4050, L501.9520, L500.4100, L100.0100 ####[facility] [address] [place], [address] CO2 [Moles/Vol] 28.0 mmol/L Normal 21.0-32.0 [facility] Comment on above: Performed By: #### L 500.4050, L501.9520, L500.4100, L100.0100 ####[facility] [address] [place], [address] Creatinine [Mass/Vol] 0.93 mg/dL Normal 0.70-1.30 [facility] Comment on above: Result Comment: The validity of the calculated GFR GFRAA in patients over 70 years has not been determined. Clinical correlation is essential. Performed By: #### L 500.4050, L501.9520, L500.4100, L100.0100 ####[facility] [address] [place], [address] EST GFR - AA 106 mL/min Normal >60 [facility] Comment on above: Result Comment: Afri can Palestinian GFR Calc Performed By: #### L 500.4050, L501.9520, L500.4100, L100.0100 ####[facility] [address] [place], [address] GAP 5 Normal 5-15 [facility] Comment on above: Performed By: #### L 500.4050, L501.9520, L500.4100, L100.0100 ####[facility] [address] [place], [address] GFR/1.73 sq M.predicted among non-blacks MDRD (S/P/Bld) [Vol rate/Area] 88 mL/min/{1.73_m2} Normal >60 [facility] Comment on above: Result Comment: Non- GFR Calc Performed By: #### L 500.4050, L501.9520, L500.4100, L100.0100 ####[facility] [address] [place], [address] Globulin (S) [Mass/Vol] 3.5 g/dL Normal 2.2-4.2 [facility] Comment on above: Performed By: #### L 500.4050, L501.9520, L500.4100, L100.0100 ####[facility] [address] [place], [address] Glucose [Mass/Vol] 107 mg/dL High 74-106 [facility] Comment on above: Result Comment: Fast ing Glucose result from 100 to 125 mg/dL suggests IMPAIRED HOMEOSTASIS per A.D.A. criteria. Performed By: #### L 500.4050, L501.9520, L500.4100, L100.0100 ####[facility] [address] [place], [address] Potassium [Moles/Vol] 4.3 mmol/L Normal 3.5-5.1 [facility] Comment on above: Performed By: #### L 500.4050, L501.9520, L500.4100, L100.0100 ####[facility] [address] [place], [address] Sodium [Moles/Vol] 139 mmol/L Normal 136-145 [facility] Comment on above: Performed By: #### L 500.4050, L501.9520, L500.4100, L100.0100 ####[facility] [address] [place], [address] T PROT 7.0 g/dL Normal 6.4-8.2 [facility] Comment on above: Performed By: #### L 500.4050, L501.9520, L500.4100, L100.0100 ####[facility] [address] [place], [address] Urea nitrogen [Mass/Vol] 12 mg/dL Normal 7-18 [facility] Comment on above: Performed By: #### L 500.4050, L501.9520, L500.4100, L100.0100 ####[facility] [address] [place], [address] ALB Normal 3.2-5.0 [facility] Comment on above: Order Comment: Order Date: 10/23/23Order Info: [id number] - CMPOrder Info: [id number] - LIPIDOrder Info: [id number] - TSHOrder Info: [id number] - PSA Result Comment: CASSID[facility] ENT NO LONGER SEEING DR. GOMEZ Performed By: #### L 500.4100, L500.4050 ####[facility] [address] [place], [address] ALK P Normal 45-117 [facility] Comment on above: Order Comment: Order Date: 10/23/23Order Info: [id number] - CMPOrder Info: [id number] - LIPIDOrder Info: [id number] - TSHOrder Info: [id number] - PSA Result Comment: CASS[facility] E[facility] NO LONGER SEEING DR. GOMEZ Performed By: #### L 500.4100, L500.4050 ####[facility] [address] [place], [address] ALT Normal 16-61 [facility] Comment on above: Order Comment: Order Date: 10/23/23Order Info: [id number] - CMPOrder Info: [id number] - LIPIDOrder Info: [id number] - TSHOrder Info: [id number] - PSA Result Comment: CASSID[facility] ENT NO LONGER SEEING DR. GOMEZ Performed By: #### L 500.4100, L500.4050 ####[facility] [address] [place], [address] AST Normal 15-37 [facility] Comment on above: Order Comment: Order Date: 10/23/23Order Info: [id number] - CMPOrder Info: [id number] - LIPIDOrder Info: 3 - TSHOrder Info: [id number] - PSA Result Comment: CASSIDY ENT NO LONGER SEEING DR. GOMEZ Performed By: #### L 500.4100, L500.4050 ####[facility] [address] [place], [address] BUN Normal 7-18 [facility] Comment on above: Order Comment: Order Date: 10/23/23Order Info: [id number] - CMPOrder Info: [id number] - LIPIDOrder Info: [id number] - TSHOrder Info: [id number] - PSA Result Comment: CASSIDY ENT NO LONGER SEEING DR. GOMEZ Performed By: #### L 500.4100, L500.4050 ####[facility] [address] [place], [address] BUN/CRE Normal 10-20 [facility] Comment on above: Order Comment: Order Date: 10/23/23Order Info: [id number] - CMPOrder Info: [id number] - LIPIDOrder Info: [id number] - TSHOrder Info: [id number] - PSA Result Comment: CASSIDY ENT NO LONGER SEEING DR. GOMEZ Performed By: #### L 500.4100, L500.4050 ####[facility] [address] [place], [address] CA,Total Normal 8.5-10.1 [facility] Comment on above: Order Comment: Order Date: 10/23/23Order Info: [id number] - CMPOrder Info: [id number] - LIPIDOrder Info: [id number] - TSHOrder Info: [id number] - PSA Result Comment: CASSIDY ENT NO LONGER SEEING DR. GOMEZ Performed By: #### L 500.4100, L500.4050 ####[facility] [address] [place], [address] CL Normal 98-107 [facility] Comment on above: Order Comment: Order Date: 10/23/23Order Info: [id number] - CMPOrder Info: [id number] - LIPIDOrder Info: [id number] - TSHOrder Info: [id number] - PSA Result Comment: CASSIDY ENT NO LONGER SEEING DR. GOMEZ Performed By: #### L 500.4100, L500.4050 ####[facility] [address] [place], [address] CO2 Normal 21.0-32.0 [facility] Comment on above: Order Comment: Order Date: 10/23/23Order Info: [id number] - CMPOrder Info: [id number] - LIPIDOrder Info: [id number] - TSHOrder Info: [id number] - PSA Result Comment: CASSIDY ENT NO LONGER SEEING DR. GOMEZ Performed By: #### L 500.4100, L500.4050 ####[facility] [address] [place], [address] CREAT,SERUM Normal 0.70-1.30 [facility] Comment on above: Order Comment: Order Date: 10/23/23Order Info: [id number] - CMPOrder Info: [id number] - LIPIDOrder Info: [id number] - TSHOrder Info: [id number] - PSA Result Comment: CASSIDY ENT NO LONGER SEEING DR. GOMEZ Performed By: #### L 500.4100, L500.4050 ####[facility] [address] [place], [address] EST GFR Normal >60 [facility] Comment on above: Order Comment: Order Date: 10/23/23Order Info: [id number] - CMPOrder Info: [id number] - LIPIDOrder Info: [id number] - TSHOrder Info: [id number] - PSA Result Comment: CASSIDY ENT NO LONGER SEEING DR. GOMEZ Performed By: #### L 500.4100, L500.4050 ####[facility] [address] [place], [address] EST GFR - AA Normal >60 [facility] Comment on above: Order Comment: Order Date: 10/23/23Order Info: [id number] - CMPOrder Info: [id number] - LIPIDOrder Info: [id number] - TSHOrder Info: [id number] - PSA Result Comment: CASSIDY ENT NO LONGER SEEING DR. GOMEZ Performed By: #### L 500.4100, L500.4050 ####[facility] [address] [place], [address] GAP Normal 5-15 [facility] Comment on above: Order Comment: Order Date: 10/23/23Order Info: [id number] - CMPOrder Info: [id number] - LIPIDOrder Info: [id number] - TSHOrder Info: [id number] - PSA Result Comment: CASSIDY ENT NO LONGER SEEING DR. GOMEZ Performed By: #### L 500.4100, L500.4050 ####[facility] [address] [place], [address] GLU Normal 74-106 [facility] Comment on above: Order Comment: Order Date: 10/23/23Order Info: [id number] - CMPOrder Info: [id number] - LIPIDOrder Info: [id number] - TSHOrder Info: [id number] - PSA Result Comment: CASSIDY ENT NO LONGER SEEING DR. GOMEZ Performed By: #### L 500.4100, L500.4050 ####[facility] [address] [place], [address] Potassium Normal 3.5-5.1 [facility] Comment on above: Order Comment: Order Date: 10/23/23Order Info: [id number] - CMPOrder Info: [id number] - LIPIDOrder Info: [id number] - TSHOrder Info: [id number] - PSA Result Comment: CASSIDY ENT NO LONGER SEEING DR. GOMEZ Performed By: #### L 500.4100, L500.4050 ####[facility] [address] [place], [address] T BILI Normal 0.20-1.00 [facility] Comment on above: Order Comment: Order Date: 10/23/23Order Info: [id number] - CMPOrder Info: [id number] - LIPIDOrder Info: [id number] - TSHOrder Info: [id number] - PSA Result Comment: CASSIDY ENT NO LONGER SEEING DR. GOMEZ Performed By: #### L 500.4100, L500.4050 ####[facility] [address] [place], [address] T PROT Normal 6.4-8.2 [facility] Comment on above: Order Comment: Order Date: 10/23/23Order Info: [id number] - CMPOrder Info: [id number] - LIPIDOrder Info: [id number] - TSHOrder Info: [id number] - PSA Result Comment: CASSIDY ENT NO LONGER SEEING DR. GOMEZ Performed By: #### L 500.4100, L500.4050 ####[facility] [address] [place], [place], [address] Comprehensive Metabolic Profil Normal 136-145 [facility] Comment on above: Order Comment: Order Date: 10/23/23Order Info: [id number] - CMPOrder Info: [id number] - LIPIDOrder Info: [id number] - TSHOrder Info: [id number] - PSA Result Comment: CASSIDY ENT NO LONGER SEEING DR. GOMEZ Performed By: #### L 500.4100, L500.4050 ####[facility] [address] [place], [address] Eosinophil percentageOrdered By: Vidhya Moreno on 03-04-2024 Eosinophils/100 WBC (Bld) 1.7 % 0-5 [facility] Erythrocyte distribution wid th ratioOrdered By: Vidhya Moreno on 03-04-2024 Erythrocyte distribution width (RBC) [Ratio] 13.1 % 11.6-14.6 [facility] Erythrocyte distribution wid th standard deviationOrdered By: Vidhya Moreno on 03-04-2024 Erythrocyte distribution width (RBC) [Entitic vol] 39.9 fL 35.1-43.9 [facility] Erythrocyte distribution width (RBC) [Ratio] 39.9 fl 35.1-43.9 [facility] Estimated glomerular filtrat ion rate (GFR) AmericanOrdered By: Vidhya Moreno on 03-04-2024 Estimated GFR (MDRD) Amer 106 mL/min >60 [facility] Comment on above: GFR Calc Glomerular filtration rate ( GFR) estimationOrdered By: Vidhya Moreno on 03-04-2024 Estimated GFR (MDRD) Non-Af Amer 88 mL/min >60 [facility] Comment on above: Non- GFR Calc GFR/1.73 sq M.predicted among non-blacks MDRD (S/P/Bld) [Vol rate/Area] 88 mL/min/{1.73_m2} >60 [facility] Comment on above: Non- GFR Calc Glucose measurementOrdered B y: Vidhya Moreno on 03-04-2024 Glucose [Mass/Vol] 107 mg/dL High 74-106 [facility] Comment on above: Fasting Glucose resu lt from 100 to 125 mg/dL suggests IMPAIRED HOMEOSTASIS per A.D.A. criteria. Hematocrit Auto (Bld) [Volum e fraction]Ordered By: Vidhya Moreno on 03-04-2024 Hematocrit (Bld) [Volume fraction] 49.8 % 40-54 [facility] Hemoglobin measurementOrdere d By: Vidhya Moreno on 03-04-2024 Hemoglobin (Bld) [Mass/Vol] 15.7 g/dL 13.0-16.5 [facility] High density lipoprotein (HD L) measurementOrdered By: Vidhya Moreno on 03-04-2024 Cholesterol in HDL [Mass/Vol] 46 mg/dL >40 [facility] Comment on above: The drugs N-Acetylcy steine and Metamizole may falsely depress this assay. Reference Range HDL <40 mg/dL Low HDL Cholesterol HDL >or= 60 mg/dL High HDL Cholesterol Immature granulocytes/100 WB C Auto (Bld)Ordered By: Vidhya Moreno on 03-04-2024 Immature granulocytes/100 WBC (Bld) 0.500 % 0.0-0.9 [facility] Comment on above: IG% - Immature Granu locytes (promyelocytes, myelocytes and metamyelocytes) > 1% indicates that a LEFT SHIFT is Present. Laboratory - Chemistry and C hemistry - challengeOrdered By: Vidhya Moreno on 03-04-2024 AST [Catalytic activity/Vol] 20 U/L 15-37 [facility] Lipid Profileon 03-04-2024 Cholesterol [Mass/Vol] 183 mg/dL Normal 200 [facility] Comment on above: Result Comment: <200 mg/dL Desirable 200-240 mg/dL Borderline >240 mg/dL High Risk Performed By: #### L 500.4050, L501.2820, L500.4100, L100.0100 ####[facility] [address] [place], [place], [address] Cholesterol in HDL [Mass/Vol] 46 mg/dL Normal [facility] Comment on above: Result Comment: The drugs N-Acetylcysteine and Metamizole may falsely depress this assay. Reference Range HDL <40 mg/dL Low HDL Cholesterol HDL >or= 60 mg/dL High HDL Cholesterol Performed By: #### L 500.4050, L501.9520, L500.4100, L100.0100 ####[facility] [address] [place], [address] Cholesterol in LDL [Mass/Vol] 109 mg/dL Normal 0-130 [facility] Comment on above: Performed By: #### L 500.4050, L501.9520, L500.4100, L100.0100 ####[facility] [address] [place], [address] Cholesterol in VLDL [Mass/Vol] 28 mg/dL Normal 5-40 [facility] Comment on above: Performed By: #### L 500.4050, L501.9520, L500.4100, L100.0100 ####[facility] [address] [place], [address] Triglyceride [Mass/Vol] 138 mg/dL Normal [facility] Comment on above: Result Comment: The drugs N-Acetylcysteine and Metamizole may falsely depress this assay. Serum Triglycerides Reference Interval Normal <150 mg/dL Borderline high 150 - 199 mg/dL High 200 - 499 mg/dL Very High > or = 500 mg/dL Performed By: #### L 500.4050, L501.9520, L500.4100, L100.0100 ####[facility] [address] [place], [address] CHOL Normal 200 [facility] Comment on above: Order Comment: Order Date: 10/23/23Order Info: [id number] - CMPOrder Info: [id number] - LIPIDOrder Info: [id number] - TSHOrder Info: [id number] - PSA Result Comment: CASSIDY ENT NO LONGER SEEING DR. GOMEZ Performed By: #### L 500.4100, L500.4050 ####[facility] [address] [place], [address] HDL Normal [facility] Comment on above: Order Comment: Order Date: 10/23/23Order Info: [id number] - CMPOrder Info: [id number] - LIPIDOrder Info: [id number] - TSHOrder Info: [id number] - PSA Result Comment: CASSIDY ENT NO LONGER SEEING DR. GOMEZ Performed By: #### L 500.4100, L500.4050 ####[facility] [address] [place], [address] LDL Normal 0-130 [facility] Comment on above: Order Comment: Order Date: 10/23/23Order Info: [id number] - CMPOrder Info: [id number] - LIPIDOrder Info: [id number] - TSHOrder Info: [id number] - PSA Result Comment: CASSIDY ENT NO LONGER SEEING DR. GOMEZ Performed By: #### L 500.4100, L500.4050 ####[facility] [address] [place], [address] TRIG Normal [facility] Comment on above: Order Comment: Order Date: 10/23/23Order Info: [id number] - CMPOrder Info: [id number] - LIPIDOrder Info: [id number] - TSHOrder Info: [id number] - PSA Result Comment: CASSIDY ENT NO LONGER SEEING DR. GOMEZ Performed By: #### L 500.4100, L500.4050 ####[facility] [address] [place], [address] VLDL Normal 5-40 [facility] Comment on above: Order Comment: Order Date: 10/23/23Order Info: [id number] - CMPOrder Info: [id number] - LIPIDOrder Info: [id number] - TSHOrder Info: [id number] - PSA Result Comment: CASSIDY ENT NO LONGER SEEING DR. GOMEZ Performed By: #### L 500.4100, L500.4050 ####[facility] [address] [place], [address] Low density lipoprotein (LDL ) cholesterol measurementOrdered By: Vidhya Moreno on 03-04-2024 Cholesterol in LDL [Mass/Vol] 109 mg/dL 0-130 [facility] Lymphocytes Auto (Unsp spec) [#/Vol]Ordered By: Vidhya Moreno on 03-04-2024 Lymphocytes (Bld) [#/Vol] 1.19 10*3/uL 0.83-4.51 [facility] Lymphocytes/100 WBC Auto (Un sp spec)Ordered By: Vidhya Moreno on 03-04-2024 Lymphocytes/100 WBC (Bld) 18.5 % Low 19-41 [facility] MCV (mean corpuscular volume ) determinationOrdered By: Vidhya Moreno on 03-04-2024 MCV (RBC) [Entitic vol] 83.8 fL 80-94 [facility] Mean corpuscular hemoglobin (MCH) determinationOrdered By: Vidhya Moreno on 03-04-2024 MCH (RBC) [Entitic mass] 26.4 pg Low 27.0-32.0 [facility] Mean corpuscular hemoglobin concentration (MCHC) determinationOrdered By: Vidhya Moreno on 03-04-2024 MCHC (RBC) [Mass/Vol] 31.5 g/dL Low 32-36 [facility] Mean platelet volume determi nationOrdered By: Vidhya Moreno on 03-04-2024 Platelet mean volume (Bld) [Entitic vol] 10.1 fL 6.2-12.0 [facility] Monocyte percentageOrdered B y: Vidhya Moreno on 03-04-2024 Monocytes/100 WBC (Bld) 8.4 % 0-10 [facility] Neutrophil percentageOrdered By: Vidhya Moreno on 03-04-2024 Neutrophils/100 WBC (Bld) 69.7 % 47-70 [facility] Nucleated red blood cell per centageOrdered By: Vidhya Moreno on 03-04-2024 Nucleated RBC/100 WBC (Bld) [Ratio] 0 % 0-5 [facility] Platelet countOrdered By: Mauricio Moreno on 03-04-2024 Platelets (Bld) [#/Vol] 266 10*3/uL 150-450 [facility] Potassium measurementOrdered By: Vidhya Moreno on 03-04-2024 Potassium [Moles/Vol] 4.3 mmol/L 3.5-5.1 [facility] RBC Auto (Bld) [#/Vol]Ordere d By: Vidhya Moreno on 03-04-2024 RBC (Bld) [#/Vol] 5.94 10*6/uL 4.6-6.2 [facility] Serum anion gap measurementO rdered By: Vidhya Moreno on 03-04-2024 Anion gap [Moles/Vol] 5 mmol/L 5-15 [facility] Serum globulin measurementOr dered By: Vidhya Moreno on 03-04-2024 Globulin (S) [Mass/Vol] 3.5 g/dL 2.2-4.2 [facility] Serum or plasma alanine white otransferase (ALT) measurementOrdered By: Vidhya Moreno on 03-04-2024 ALT [Catalytic activity/Vol] 31 U/L 16-61 [facility] Serum or plasma albumin brandi urement (mass/volume)Ordered By: Vidhya Moreno on 03-04-2024 Albumin [Mass/Vol] 3.5 g/dL 3.2-5.0 [facility] Serum or plasma alkaline nelda sphatase measurementOrdered By: Vidhya Moreno on 03-04-2024 ALP [Catalytic activity/Vol] 69 U/L 45-117 [facility] Serum or plasma calcium brandi urement (mass/volume)Ordered By: Vidhya Moreno on 03-04-2024 Calcium [Mass/Vol] 9.4 mg/dL 8.5-10.1 [facility] Serum or plasma cholesterol measurement (mass/volume)Ordered By: Vidhya Moreno on 03-04-2024 Cholesterol [Mass/Vol] 183 mg/dL <200 [facility] Comment on above: <200 mg/dL Desirable 200-240 mg/dL Borderline >240 mg/dL High Risk Serum or plasma creatinine m easurement (mass/volume)Ordered By: Vidhya Moreno on 03-04-2024 Creatinine [Mass/Vol] 0.93 mg/dL 0.70-1.30 [facility] Comment on above: The validity of the calculated GFR & GFRAA in patients over 70 years has not been determined. Clinical correlation is essential. Serum or plasma thyroid stim ulating hormone (TSH) measurement (units/volume)Ordered By: Vidhya Moreno on 03-04-2024 TSH Qn 1.800 uIU/mL 0.358-3.74 0 [facility] Serum or plasma urea nitroge n measurement (mass/volume)Ordered By: Vidhya Moreno on 03-04-2024 Urea nitrogen [Mass/Vol] 12 mg/dL 7-18 [facility] Sodium levelOrdered By: Errol Moreno on 03-04-2024 Sodium [Moles/Vol] 139 mmol/L 136-145 [facility] TSH QnOrdered By: Vidhya herman on 03-04-2024 Thyroid Stimulating Hormone (TSH) 1.800 uIU/mL 0.358-3.74 0 [facility] Thyroid Stim Hormone (TSH)on 03-04-2024 TSH 1.800 uIU/mL Normal 0.358-3.74 0 [facility] Comment on above: Performed By: #### L 500.4050, L501.9520, L500.4100, L100.0100 ####[facility] [address] [place], [address] Total proteinOrdered By: Nav Moreno on 03-04-2024 Protein [Mass/Vol] 7.0 g/dL 6.4-8.2 [facility] Triglycerides measurementOrd ered By: Vidhya Moreno on 03-04-2024 Triglyceride [Mass/Vol] 138 mg/dL <199 [facility] Comment on above: The drugs N-Acetylcy steine and Metamizole may falsely depress this assay.Serum Triglycerides Reference Interval Normal <150 mg/dL Borderline high 150 - 199 mg/dL High 200 - 499 mg/dL Very High > or = 500 mg/dL Very low density lipoprotein (VLDL) cholesterol measurementOrdered By: Vidhya Moreno on 03-04-2024 Very low density lipoprotein (VLDL) cholesterol measurement 28 mg/dL [facility] VLDL Cholesterol 28 mg/dL [facility] White blood cell (WBC) count Ordered By: Vidhya Moreno on 03-04-2024 WBC (Bld) [#/Vol] 6.4 10*3/uL 4.4-11.0 [facility] Internal Medicine Office Vis iton 02-29-2024 Internal Medicine Office Visit [facility] [address] [place] [address] [place] [address] OFFICE VISIT Date of Service: 03/04/24 MR#: [id number] Acct: [id number] Name: MARVA WAGNER Rep #: [id number] : 1960 Provider: Dr. Vidhya ziegler MD Age/Sex: 63/M Location: [facility] Status: Signed Intake Vital Signs 10/19/21 11:08 03/04/24 11:00 03/04/24 13:03 Height 6 ft 6 ft Weight: 362 lb 4 oz BMI 49.1 BP 142/88 H 132/82 H Blood Pressure Location Rt brachial Position Sitting Respiration 18 Pulse 64 Pulse Source Monitor Temp 97 F L Temp Source Temporal Pulse Oximetry (%) 98 Oxygen Delivery Method room air Intake Visit Reasons: EST NEW PT- [facility]WK SENT [place] Required: No Accompanied by: Self Is patient in pain?: No Allergies finasteride Adverse Reaction (Mild, Verified 03/04/24 11:15) Other Medications ???Medication ???Instructions ???Recorded ???Confirmed ???Type atenolol 25 mg tablet 50 mg PO 1630 04/24/15 03/04/24 History cetirizine 10 mg capsule (Zyrtec) 10 mg PO QDAY PRN 03/04/24 03/04/24 History ketoconazole 2 % topical cream 1 applic topical QDAY #15 grams 03/04/24 03/04/24 Rx omeprazole 20 mg capsule,delayed 40 mg PO 1630 03/04/24 03/04/24 History release Have you fallen in the past year?: No Nurse's Note: long list of ailments [facility] Medical History (Updated 03/04/24 @ 11:[address] Vidhya Moreno MD) BPH with obstruction/lower urinary tract symptoms Carpal tunnel syndrome of left wrist Hearing difficulty of both ears Generalized arthritis Seasonal allergies High blood pressure Vision changes Chronic headaches Chronic bronchitis Surgical History (Updated 03/04/24 @ 11:[address] 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 He was seeing Dr. Gomez and last saw them in October. He is due for some routine blood work and is due for some screening. He does want a flu shot. He doesn't smoke and doesn't need any refills. He reports he is eating healthy intermittently and staying active at work. The patient has been on blood pressure medications for 15-20 years. He does check his blood pressure at home occasionally and reports it is usually in the 130/80 range. He is taking his medication as prescribed for the most part, without problems. He states he will miss a dose on average once a month. He doesn't monitor his salt intake. The patient reports he continues to have problems with omeprazole. He reports certain foods trigger him. He states he was on nexium but finds the omeprazole works better for him. He does think the medication helps. The patient has a history of BPH s/p prostatectomy. He no longer takes medications and reports that he isn't having any problems. The patient follow with ENT, Dr. Kim, for his allergies and deviated septum. He takes zyrtec daily which does seem to help a little, although he continues to have sinus congestion. He also gets allergy shots with them. The patient has an upcoming sleep study for suspected sleep apnea. He has it scheduled through Dr. Bright, pulmonology. He reports he has been tired. He reports he does prop himself up at night because of snoring. He denies being told he stops breathing at night nor waking up gasping for air. The patient has concerns about his 'sweat glands.' He states under his pannus, he will get sweaty and develops a rash in the area. He has tried medicated powder, deodorant and rash cream all OTC. He states he has been using baby wipes which help a little. He is concerned about the excessive sweating in that area, however. He denies any excessive sweating elsewhere. He never discussed it with his previous PCP. The patient also has concerns about his left knee. He reports it has been going on intermittently for about 5 years, but states it is worse over the last 1.5 months. He reports it has been causing pain over the (more content not included)... Normal [facility] EGD Study observation Narrat iveon 04-12-2023 [facility] HISTORY PHYSICALon HISTORY PHYSICAL HNO ID: [id number] Author: GUME GRAY MD Service: General Surgery Author Type: Physician Type: H&P Filed: 04/12/2023 09:36 Note Text: HISTORY AND PHYSICAL Marva Skinner Kristy 1960 REFERRING PHYSICIAN: Laura Gomez MD CHIEF COMPLAINT: Consult (Dyspepsia/ EGD consult) HPI: The patient is a 62 year old male referred for endoscopy. Marva notes no history of colon complaints. The patient notes the following upper complaints: Marva denies abdominal pain.. Marva notes heartburn. Marva notes dysphagia. Marva denies a history of ulcers/ peptic ulcer disease. Marva has undergone prior endoscopy. egd [id number] The patient is being seen by me today at the request of Dr. Laura Gomez MD for my opinion and advice regarding Gastroesophageal reflux disease, unspecified whether esophagitis present (primary encounter diagnosis). PAST MEDICAL HISTORY PAST MEDICAL HISTORY Diagnosis Date Acute gastritis without mention of hemorrhage Anal or rectal pain Benign neoplasm of colon Diaphragmatic hernia without mention of obstruction or gangrene Elevated PSA Esophagitis, unspecified Essential hypertension, benign External hemorrhoids without mention of complication GERD (gastroesophageal reflux disease) Hemorrhage of rectum and anus Internal hemorrhoids without mention of complication Other chronic sinusitis Personal history of colonic polyps Pure hypercholesterolemia Snoring Unspecified disorder of prostate enlarged Urinary retention PAST SURGICAL HISTORY PAST SURGICAL HISTORY Procedure Laterality Date CATARACT EXTRACTION HX 04/02/13, 05/14/13 COLONOSCOPY FLX DX W/COLLJ SPEC WHEN PFRMD 05/12/2014 COLSC FLX W/RMVL OF TUMOR POLYP LESION SNARE TQ 03/04/2008 EGD TRANSORAL BIOPSY SINGLE/MULTIPLE 05/12/2014 PAST SURGICAL HISTORY OF 02/13/2006 left knee exploration and cleaning REMOVAL OF PROSTATE 12/[address] Tracy REPAIR OF HYDROCELE 04/2015 SKIN EXCISION removal of lipoma by Dr. Gray CURRENT MEDICATIONS Current Outpatient Medications Medication Sig Albuterol Sulfate 0.63 mg/3 mL nebulizer solution Use 1 Ampule via nebulizer every 6 hours as needed for wheezing/shortness of breath. Cetirizine (ZYRTEC) 10 mg cap Take 10 mg by mouth once daily as needed. omeprazole (PRILOSEC) 10 mg capsule Take 40 mg by mouth once daily. MULTI-VITAMIN ORAL Take by mouth. tamsulosin (FLOMAX) 0.4 mg ORAL Cp24 Take 2 capsules by mouth daily at bedtime. etodolac 400 mg ORAL tablet Take 1 tablet by mouth once daily as needed. ATENOLOL 25 MG TAB Take one(1) tablet daily. oxyCODONE-acetaminophen (PERCOCET) 5-325 mg tablet 1 to 2 po q 4 hours prn esomeprazole mag trihydrate(NEXIUM 40 MG CAP) Take one(1) to two(2) capsule daily. (Patient not taking: Reported on 03/30/2023) No current facility-administered medications for this visit. ALLERGIES: Finasteride PERSONAL HISTORY: SOCIAL HISTORY Social History Tobacco Use Smoking status: Never Smokeless tobacco: Never Vaping Use Vaping Use: Never used Substance Use Topics Alcohol use: No Drug use: No FAMILY HISTORY: FAMILY HISTORY FAMILY HISTORY Problem Relation Age of Onset Breast Cancer Mother Cancer Father lung Cancer Sister thyroid Cancer Mother pancreatic Thyroid Mother Thyroid Daughter Hypertension Mother Hypertension Sister Hypertension Brother REVIEW OF SYMPTOMS: The review of systems data was entered by the nurse and reviewed by id Nursing Notes: Summer OsborneSIMON 03/30/2023 10:21 AM Signed REVIEW OF SYSTEMS: General: The patient denies fatigue, denies weight loss, denies weight gain, denies feeling hot, and denies feelings of cold. Eyes: The patient denies glaucoma, denies eye injury/surgery, does not wear glasses or contacts. Ear/Nose/Throat: The patient NOTES allergies, denies hayfever, denies ear infections, and denies bloody noses. Cardiovascular: The patient denies chest pain, NOTES heart disease, NOTES high blood pressure,denies cardiac stent, denies prior heart attack, denies irregular heart beat, denies high cholesterol, denies poor circulation, denies heart failure, other cardiac issues, denies claudication, denies cold feet, denies peripheral arterial stent. Respiratory: The patient denies tuberculosis, denies pneumonia, denies frequent cough, denies pulmonary embolism, denies shortness of breath, and denies coughing up blood. Gastrointestinal: The patient denies difficulty swallowing, denies acid reflux, denies ulcers, denies vomiting, denies jaundice/hepatitis, denies gallbladder problems, NOTES black or tarry stools, NOTES hemorrhoids, NOTES bleeding from rectum, denies diverticulitis, denies constipation, denies diarrhea, denies loss of stool control, and denies hernias. Kidney/Bladder: The patient denies kidney stones, NOTES urine infections, and denies bloody urine. Skin: The patient denies a history of skin cancer, nneka (more content not included)... Normal [facility] NURSING PROGon 04-12-2023 NURSING PROG HNO ID: [id number] Author: BRANDEE VOSS RN Service: ? Author Type: Registered Nurse Type: Nursing Progress Note Filed: 04/12/2023 10:56 Note Text: Arrived in phase II via cart. Left lateral position. Sedated, but responds to verbal stimuli. Color normal; skin warm and dry. Respirations wnl and unlabored. Abdomen soft and with + bowel sounds in quads X 4. Patient resting comfortably. Family at bedside. Dr. Gray at bedside to review procedure and recommendations. Brandee Voss RN Normal [facility] SURGICAL PATHOLOGYon 024 CASE REPORT Normal [facility] Comment on above: Order Comment: Jose Elias ritter Type: TISSUE SPECIMEN Ordering Facility: [facility] Address: [address] [place] [address] Result Comment: Surg ical Pathology Report Case: [id number] Authorizing Provider: Gume Gray MD Collected: 04/12/2023 09:45 AM Ordering Location: Ambulatory Surgery Received: 04/12/2023 11:44 AM Pathologist: Robert Schaeffer MD Specimens: A) - DUODENUM BIOPSY B) - ANTRUM (STOMACH) BIOPSY, Antral for H/H C) - ESOPHAGUS BIOPSY, distal esophagus bx D) - ESOPHAGUS MID BIOPSY Performed By: #### S #### [facility] CLIA [id number] [address] [place] [address] FINAL DIAGNOSIS Normal [facility] Comment on above: Order Comment: Jose Elias ritter Type: TISSUE SPECIMEN Ordering Facility: [facility] Address: [address] [place] [address] Result Comment: A. D uodenum, biopsy: - Duodenal mucosa within normal limit. B. Stomach, antrum, biopsy: - Antral and corpus mucosa within normal limits. - No Helicobacter identified. C. Esophagus, distal, biopsy: - Squamous mucosa within normal limits. - Minute fragment of cardia-type mucosa within normal limits. - No intestinal metaplasia. D. Esophagus, mid, biopsy: - Squamous mucosa within normal limits. Performed By: #### S #### [facility] CLIA [id number] [address] [place] [address] OF [facility] FINAL PERFORMING LAB Normal [facility] Comment on above: Order Comment: Jose Elias ritter Type: TISSUE SPECIMEN Ordering Facility: [facility] Address: [address] [place] [address] Result Comment: Diag nostic interpretation performed at [facility], [address] [place] [address] CLIA# [id number] Child Support Case Officer: Edward Pat M.D. Performed By: #### S #### [facility] CLIA [id number] [address] [place] [address] [place] GROSS DESCRIPTION Normal [facility] Comment on above: Order Comment: Speci men Type: TISSUE SPECIMEN Ordering Facility: [facility] Address: [address] [place] [address] Result Comment: A. D UODENUM BIOPSY Received in formalin is one piece of silva-brown, soft tissue measuring 0.4 x 0.3 x 0.2 cm. Totally submitted in one cassette. B. ANTRUM (STOMACH) BIOPSY Received in formalin is one piece of silva-brown, soft tissue measuring 0.9 x 0.3 x 0.3 cm. Totally submitted in one cassette. C. ESOPHAGUS BIOPSY Received in formalin are two pieces of silva-white and red, soft tissue aggregating to 1.1 x 0.3 x 0.2 cm. Totally submitted in one cassette. D. ESOPHAGUS MID BIOPSY Received in formalin is one piece of silva-white and red, soft tissue measuring 0.5 x 0.3 x 0.1 cm. Totally submitted in one cassette. Gross examination performed at [facility], [address] [place] [address] April 12, 2023 5:30 PM Performed By: #### S #### [facility] CLIA [id number] [address] [place] [address] [place] Upper GI endoscopy 04-12-2 024 Upper GI endoscopy [facility] Gastrointestinal Endoscopy Patient Name: Marva Wagner Procedure Date: 04/12/2023 9:25 AM Date of : 1960 Admit Type: Outpatient Age: 62 Gender: Male Note Status: Finalized Procedure: Upper GI endoscopy Indications: Non-erosive esophageal reflux Providers: Gume Gray MD Patient Profile: This is a 62 year old male. Refer to note in patient chart for documentation of history and physical. Referring Physician: Gume Gray MD (Referring MD), Laura Gomez MD (Referring MD) Medicines: Fentanyl 75 micrograms IV, Midazolam 4 mg IV, Diphenhydramine 50 mg IV, Benzocaine spray Complications: No immediate complications. Estimated blood loss: Minimal. Requesting Provider: Procedure: Pre-Anesthesia Assessment: - Prior to the procedure, a History and Physical was performed, and patient medications and allergies were reviewed. The patient's tolerance of previous anesthesia was also reviewed. The risks and benefits of the procedure and the sedation options and risks were discussed with the patient. All questions were answered, and informed consent was obtained. Prior Anticoagulants: The patient has taken no anticoagulant or antiplatelet agents. ASA Grade Assessment: III - A patient with severe systemic disease. After reviewing the risks and benefits, the patient was deemed in satisfactory condition to undergo the procedure. After obtaining informed consent, the endoscope was passed under direct vision. Throughout the procedure, the patient's blood pressure, pulse, and oxygen saturations were monitored continuously. The Endoscope was introduced through the mouth, and advanced to the second part of duodenum. The upper GI endoscopy was accomplished without difficulty. The patient tolerated the procedure well. Moderate Sedation: The administration of moderate sedation was initiated at 09:39 AM. Moderate (conscious) sedation was personally administered by the endoscopist. The following parameters were monitored: oxygen saturation, heart rate, blood pressure, respiratory rate, EKG, adequacy of pulmonary ventilation, and response to care. Total physician intraservice time was 8 minutes. Findings: The Z-line was variable and was found 40 cm from the incisors. Biopsies were taken with a cold forceps for histology. The entire examined stomach was normal. Biopsies were taken with a cold forceps for Helicobacter pylori testing. The examined duodenum was normal. Biopsies for histology were taken with a cold forceps for evaluation of celiac disease. Impression: - Z-line variable, 40 cm from the incisors. Biopsied. - Normal stomach. Biopsied. - Normal examined duodenum. Biopsied. Recommendation: - Patient has a contact number available for emergencies. The signs and symptoms of potential delayed complications were discussed with the patient. Return to normal activities tomorrow. Written discharge instructions were provided to the patient. - Resume previous diet. - Continue present medications. - Await pathology results. - Repeat upper endoscopy in 3 - 5 years for surveillance. - Return to my office at appointment to be scheduled. Procedure Code(s): --- Professional --- 68040, Esophagogastroduodenoscopy, flexible, transoral; with biopsy, single or multiple Diagnosis Code(s): --- Professional --- K22.89, Other specified disease of esophagus K21.9, Gastro-esophageal reflux disease without esophagitis CPT copyright 2020 [employer]. All rights reserved. The codes documented in this report are preliminary and upon content checker review may be revised to meet current compliance requirements. Attending Participation: I personally performed the entire procedure. Scope In: 9:42:55 AM Scope Out: 9:47:50 AM MD Gume Robles MD 04/12/2023 9:53:38 AM This report has been signed electronically by Gume Gray MD Number of Addenda: 0 Note Initiated On: 04/12/2023 9:25 AM Estimated Blood Loss: Estimated blood loss was minimal. [facility] CNOVon 03-30-2023 CNOV Office Visit (GENSWS ) MARVA WAGNER ([id number]) 1960 M Date Time Provider Department 03/30/23 10:15 AM GUME GRAY During your visit today, we recorded the following information about you: Temperature Pulse Blood pressure Weight 97.9 degrees 78/minute 136/88 150.9 kg Height 1.854 m Gume Gray MD 03/30/2023 10:41 AM Signed HISTORY AND PHYSICAL Marva Wagner 1960 REFERRING PHYSICIAN: Laura Gomez MD CHIEF COMPLAINT: Consult (Dyspepsia/ EGD consult) HPI: The patient is a 62 year old male referred for endoscopy. Marva notes no history of colon complaints. The patient notes the following upper complaints: Marva denies abdominal pain.. Marva notes heartburn. Marva notes dysphagia. Marva denies a history of ulcers/ peptic ulcer disease. Marva has undergone prior endoscopy. egd [id number] The patient is being seen by me today at the request of Dr. Laura Gomez MD for my opinion and advice regarding Gastroesophageal reflux disease, unspecified whether esophagitis present (primary encounter diagnosis). PAST MEDICAL HISTORY Diagnosis Date Acute gastritis without mention of hemorrhage Anal or rectal pain Benign neoplasm of colon Diaphragmatic hernia without mention of obstruction or gangrene Elevated PSA Esophagitis, unspecified Essential hypertension, benign External hemorrhoids without mention of complication GERD (gastroesophageal reflux disease) Hemorrhage of rectum and anus Internal hemorrhoids without mention of complication Other chronic sinusitis Personal history of colonic polyps Pure hypercholesterolemia Snoring Unspecified disorder of prostate enlarged Urinary retention PAST SURGICAL HISTORY Procedure Laterality Date CATARACT EXTRACTION HX 04/02/13, 05/14/13 COLONOSCOPY FLX DX W/COLLJ SPEC WHEN PFRMD 05/12/2014 COLSC FLX W/RMVL OF TUMOR POLYP LESION SNARE TQ 03/04/2008 EGD TRANSORAL BIOPSY SINGLE/MULTIPLE 05/12/2014 PAST SURGICAL HISTORY OF 02/13/2006 left knee exploration and cleaning REMOVAL OF PROSTATE 12/[address] Tracy REPAIR OF HYDROCELE 04/2015 SKIN EXCISION removal of lipoma by Dr. Gray Current Outpatient Medications Medication Sig Albuterol Sulfate 0.63 mg/3 mL nebulizer solution Use 1 Ampule via nebulizer every 6 hours as needed for wheezing/shortness of breath. Cetirizine (ZYRTEC) 10 mg cap Take 10 mg by mouth once daily as needed. omeprazole (PRILOSEC) 10 mg capsule Take 40 mg by mouth once daily. MULTI-VITAMIN ORAL Take by mouth. tamsulosin (FLOMAX) 0.4 mg ORAL Cp24 Take 2 capsules by mouth daily at bedtime. etodolac 400 mg ORAL tablet Take 1 tablet by mouth once daily as needed. ATENOLOL 25 MG TAB Take one(1) tablet daily. oxyCODONE-acetaminophen (PERCOCET) 5-325 mg tablet 1 to 2 po q 4 hours prn esomeprazole mag trihydrate(NEXIUM 40 MG CAP) Take one(1) to two(2) capsule daily. (Patient not taking: Reported on 03/30/2023) No current facility-administered medications for this visit. ALLERGIES: Finasteride PERSONAL HISTORY: Social History Tobacco Use Smoking status: Never Smokeless tobacco: Never Vaping Use Vaping Use: Never used Substance Use Topics Alcohol use: No Drug use: No FAMILY HISTORY: FAMILY HISTORY Problem Relation Age of Onset Breast Cancer Mother Cancer Father lung Cancer Sister thyroid Cancer Mother pancreatic Thyroid Mother Thyroid Daughter Hypertension Mother Hypertension Sister Hypertension Brother REVIEW OF SYMPTOMS: The review of systems data was entered by the nurse and reviewed by me Nursing Notes: Summer Osborne LPN 03/30/2023 10:21 AM Signed REVIEW OF SYSTEMS: General: The patient denies fatigue, denies weight loss, denies weight gain, denies feeling hot, and denies feelings of cold. Eyes: The patient denies glaucoma, denies eye injury/surgery, does not wear glasses or contacts. Ear/Nose/Throat: The patient NOTES allergies, denies hayfever, denies ear infections, and denies bloody noses. Cardiovascular: The patient denies chest pain, NOTES heart disease, NOTES high blood pressure,denies cardiac stent, denies prior heart attack, denies irregular heart beat, denies high cholesterol, denies poor circulation, denies heart failure, other cardiac issues, denies claudication, denies cold feet, denies peripheral arterial stent. Respiratory: The patient denies tuberculosis, denies pneumonia, denies frequent cough, denies pulmonary embolism, denies shortness of breath, and denies coughing up blood. Gastrointestinal: The patient denies difficulty swallowing, denies acid reflux, denies ulcers, denies vomiting, denies jaundice/hepatitis, denies gallbladder problems, NOTES black or tarry stools, NOTES hemorrhoids, NOTES bleeding from rectum, denies diverticulitis, denies constipation, denies diarrhea, denies loss (more content not included)... [facility]30[facility]20[facility]) MARVA WAGNER ([id number]) 1960 M Date Time Provider Department 03/30/23 GUME GRAY During your visit today, we recorded the following information about you: Tiffany Kwok 03/30/2023 10:51 AM Signed 04/12/2023 [facility] Allergies As of Date: 03/30/2023 Noted Allergy Reaction FINASTERIDE 03/30/2023 13 - Dystonia Date Reviewed: 03/30/2023 Reviewed by: Summer Osborne LPN - Fully Assessed Reason for Visit: 04/12/2023 [facility] [Other] Prescriptions as of 12/20/2023 - Albuterol Sulfate 0.63 mg/3 mL nebulizer solution Use 1 Ampule via nebulizer every 6 hours as needed for wheezing/shortness of breath. - Cetirizine (ZYRTEC) 10 mg cap Take 10 mg by mouth once daily as needed. - omeprazole (PRILOSEC) 10 mg capsule Take 40 mg by mouth once daily. - oxyCODONE-acetaminophen (PERCOCET) 5-325 mg tablet 1 to 2 po q 4 hours prn - MULTI-VITAMIN ORAL Take by mouth. - tamsulosin (FLOMAX) 0.4 mg ORAL Cp24 Take 2 capsules by mouth daily at bedtime. - etodolac 400 mg ORAL tablet Take 1 tablet by mouth once daily as needed. - esomeprazole mag trihydrate(NEXIUM 40 MG CAP) Take one(1) to two(2) capsule daily. - ATENOLOL 25 MG TAB Take one(1) tablet daily. Problem List As Of Date 03/30/2023 Noted Resolved ESOPHAGITIS, UNSPECIFIED [K20.90] 06/23/2005 ACUTE GASTRITIS W/O HEMORRHAGE [K29.00] 06/23/2005 RECTAL AND ANAL HEMORRHAGE [K62.5] 01/14/2008 PAIN ANUS [K62.89] 01/14/2008 INT HEMORRHOID W/O COMPL [K64.8] 01/14/2008 EXT HEMORRHOID W/O COMPL [K64.4] 01/14/2008 Morbid obesity [E66.01] 02/24/2011 Right hydrocele [N43.3] 02/24/2011 Testalgia [N50.819] 02/24/2011 Urgency of urination [R39.15] 02/24/2011 Frequency of urination [R35.0] 02/24/2011 Nocturia [R35.1] 02/24/2011 Microscopic hematuria [R31.29] 03/15/2011 Essential hypertension [I10] 03/12/2015 History of colonic polyps [Z86.0100] 03/12/2015 Encounter Status:Closed by NIKHIL EDMOND on 12/20/23 [facility] Basophil percentageOrdered B y: Jed Gomez on 11-24-2022 Bilirubin [Mass/Vol] 0.30 mg/dL 0.20-1.00 [facility] Comment on above: For patients on eltr ombopag therapy, use of Dimension [place] TBIL is not recommended. Chloride [Moles/Vol] 108 mmol/L 98-107 [facility] Cholesterol [Mass/Vol] 189 mg/dL <200 [facility] Comment on above: <200 mg/dL Desirable 200-240 mg/dL Borderline >240 mg/dL High Risk Glucose [Mass/Vol] 98 mg/dL 74-106 [facility] Potassium [Moles/Vol] 4.2 mmol/L 3.5-5.1 [facility] Protein [Mass/Vol] 7.0 g/dL 6.4-8.2 [facility] Sodium [Moles/Vol] 141 mmol/L 136-145 [facility] Triglyceride [Mass/Vol] 143 mg/dL <199 [facility] Comment on above: The drugs N-Acetylcy steine and Metamizole may falsely depress this assay.Serum Triglycerides Reference Interval Normal <150 mg/dL Borderline high 150 - 199 mg/dL High 200 - 499 mg/dL Very High > or = 500 mg/dL Laboratory - Chemistry and C hemistry - challengeOrdered By: Jed Gomez on 11-24-2022 ALP [Catalytic activity/Vol] 56 U/L 45-117 [facility] ALT [Catalytic activity/Vol] 42 U/L 16-61 [facility] CO2 [Moles/Vol] 28.0 mmol/L 21.0-32.0 [facility] Globulin (S) [Mass/Vol] 3.6 g/dL 2.2-4.2 [facility] Urea nitrogen/Creatinine [Mass ratio] 17.6 mg/mg 10-20 [facility] No Panel InformationOrdered By: Jed Gomez on 11-24-2022 Estimated GFR (MDRD) Amer 118 mL/min >60 [facility] Comment on above: GFR Calc Estimated GFR (MDRD) Non-Af Amer 98 mL/min >60 [facility] Comment on above: Non- GFR Calc Prostate Specific Antigen Screen 2.91 ng/mL 0.00-4.00 [facility] Comment on above: This test was perfor med using the TPSA assay method for the[employer] chemistry system. Values obtained with differentassay methods cannot be used interchangably.When changing PSA assays in the course of monitoring apatient, additional sequential testing should be carriedout to confirm baseline values. Serum or plasma albumin brandi urement (mass/volume)Ordered By: Jed Gomez on 11-24-2022 Albumin [Mass/Vol] 3.4 g/dL 3.2-5.0 [facility] Serum or plasma albumin/glob ulin mass ratioOrdered By: Jed Gomez on 11-24-2022 Albumin/Globulin [Mass ratio] 0.9 {ratio} 0.9-2.4 [facility] Serum or plasma calcium brandi urement (mass/volume)Ordered By: Jed Gomez on 11-24-2022 Calcium [Mass/Vol] 8.9 mg/dL 8.5-10.1 [facility] Serum or plasma cholesterol in HDL measurement (mass/volume)Ordered By: Jed Gomez on 11-24-2022 Cholesterol in HDL [Mass/Vol] 41 mg/dL >40 [facility] Comment on above: The drugs N-Acetylcy steine and Metamizole may falsely depress this assay. Reference Range HDL <40 mg/dL Low HDL Cholesterol HDL >or= 60 mg/dL High HDL Cholesterol Serum or plasma cholesterol in VLDL measurement (mass/volume)Ordered By: Jed Gomez on 11-24-2022 Cholesterol in VLDL [Mass/Vol] 29 mg/dL 5-40 [facility] Serum or plasma creatinine m easurement (mass/volume)Ordered By: Jed Gomez on 11-24-2022 Creatinine [Mass/Vol] 0.85 mg/dL 0.70-1.30 [facility] Comment on above: The validity of the calculated GFR & GFRAA in patients over 70 years has not been determined. Clinical correlation is essential. Serum or plasma low density lipoprotein (LDL) cholesterol measurement (mass/volume)Ordered By: Jed Gomez on 11-24-2022 Cholesterol in LDL [Mass/Vol] 119 mg/dL 0-130 [facility] Serum or plasma urea nitroge n measurement (mass/volume)Ordered By: Jed Gomez on 11-24-2022 Urea nitrogen [Mass/Vol] 15 mg/dL 7-18 [facility] Thin prep Papanicolaou smear with manual screeningOrdered By: Jed Gomez on 11-24-2022 Thin prep Papanicolaou smear with manual screening 23 U/L 15-37 [facility] Thin prep Papanicolaou smear with manual screening 5 5-15 [facility] Basophil percentageon 2021 Bilirubin [Mass/Vol] 0.30 mg/dL 0.20-1.00 [facility] Work Phone: Comment on above: For patients on eltr ombopag therapy, use of Dimension [place] TBIL is not recommended. Chloride [Moles/Vol] 107 mmol/L 98-107 [facility] Work Phone: Cholesterol [Mass/Vol] 193 mg/dL <200 [facility] Work Phone: Comment on above: <200 mg/dL Desirable 200-240 mg/dL Borderline >240 mg/dL High Risk Glucose [Mass/Vol] 92 mg/dL 74-106 [facility] Work Phone: Potassium [Moles/Vol] 4.1 mmol/L 3.5-5.1 [facility] Work Phone: Protein [Mass/Vol] 7.1 g/dL 6.4-8.2 [facility] Work Phone: Sodium [Moles/Vol] 140 mmol/L 136-145 [facility] Work Phone: Triglyceride [Mass/Vol] 188 mg/dL <199 [facility] Work Phone: Comment on above: The drugs N-Acetylcy steine and Metamizole may falsely depress this assay.Serum Triglycerides Reference Interval Normal <150 mg/dL Borderline high 150 - 199 mg/dL High 200 - 499 mg/dL Very High > or = 500 mg/dL WBC (Bld) [#/Vol] 6.7 10*3/uL 4.4-11.0 [facility] Work Phone: [phone] Blood erythrocytes count (nu mber/volume)on 10-19-2021 RBC (Bld) [#/Vol] 5.86 10*6/uL 4.6-6.2 [facility] Work Phone: [phone] Blood hemoglobin measurement (mass/volume)on 10-19-2021 Hemoglobin (Bld) [Mass/Vol] 16.3 g/dL 13.0-16.5 [facility] Work Phone: [phone] Blood platelet mean volumeon 10-19-2021 Platelet mean volume (Bld) [Entitic vol] 9.9 fL 6.2-12.0 [facility] Work Phone: Determination of erythrocyte mean corpuscular volume (MCV)on 10-19-2021 MCV (RBC) [Entitic vol] 84.6 fL 80-94 [facility] Work Phone: Hematocrit Auto (Bld) [Volum e fraction]on 10-19-2021 Hematocrit (Bld) [Volume fraction] 49.6 % 40-54 [facility] Work Phone: Laboratory - Chemistry and C hemistry - challengeon 10-19-2021 ALP [Catalytic activity/Vol] 60 U/L 45-117 [facility] Work Phone: [phone] ALT [Catalytic activity/Vol] 29 U/L 16-61 [facility] Work Phone: [phone] CO2 [Moles/Vol] 26.0 mmol/L 21.0-32.0 [facility] Work Phone: [phone] Globulin (S) [Mass/Vol] 3.9 g/dL 2.2-4.2 [facility] Work Phone: Urea nitrogen/Creatinine [Mass ratio] 16.2 mg/mg 10-20 [facility] Work Phone: Laboratory - Hematology and Cell countson 10-19-2021 Erythrocyte distribution width (RBC) [Entitic vol] 42.0 fL 35.1-43.9 [facility] Work Phone: Erythrocyte distribution width (RBC) [Ratio] 13.5 % 11.6-14.6 [facility] Work Phone: MCH (RBC) [Entitic mass] 27.8 pg 27.0-32.0 [facility] Work Phone: MCHC Auto (RBC) [Mass/Vol]on 10-19-2021 MCHC (RBC) [Mass/Vol] 32.9 g/dL 32-36 [facility] Work Phone: No Panel Informationon 10-19 Estimated GFR (MDRD) Amer 117 mL/min >60 [facility] Work Phone: Comment on above: GFR Calc Estimated GFR (MDRD) Non-Af Amer 96 mL/min >60 [facility] Work Phone: Comment on above: Non- GFR Calc Prostate Specific Antigen Screen 4.53 ng/mL 0.00-4.00 [facility] Work Phone: Comment on above: This test was perfor med using the TPSA assay method for the[employer] chemistry system. Values obtained with differentassay methods cannot be used interchangably.When changing PSA assays in the course of monitoring apatient, additional sequential testing should be carriedout to confirm baseline values. Platelets bldon 10-19-2021 Platelets (Bld) [#/Vol] 239 10*3/uL 150-450 [facility] Work Phone: Serum or plasma albumin brandi urement (mass/volume)on 10-19-2021 Albumin [Mass/Vol] 3.2 g/dL 3.2-5.0 [facility] Work Phone: Serum or plasma albumin/glob ulin mass ratioon 10-19-2021 Albumin/Globulin [Mass ratio] 0.8 {ratio} 0.9-2.4 [facility] Work Phone: Serum or plasma calcium brandi urement (mass/volume)on 10-19-2021 Calcium [Mass/Vol] 9.3 mg/dL 8.5-10.1 [facility] Work Phone: Serum or plasma cholesterol in HDL measurement (mass/volume)on 10-19-2021 Cholesterol in HDL [Mass/Vol] 38 mg/dL >40 [facility] Work Phone: Comment on above: The drugs N-Acetylcy steine and Metamizole may falsely depress this assay. Reference Range HDL <40 mg/dL Low HDL Cholesterol HDL >or= 60 mg/dL High HDL Cholesterol Serum or plasma cholesterol in VLDL measurement (mass/volume)on 10-19-2021 Cholesterol in VLDL [Mass/Vol] 38 mg/dL 5-40 [facility] Work Phone: Serum or plasma creatinine m easurement (mass/volume)on 10-19-2021 Creatinine [Mass/Vol] 0.86 mg/dL 0.70-1.30 [facility] Work Phone: Comment on above: The validity of the calculated GFR & GFRAA in patients over 70 years has not been determined. Clinical correlation is essential. Serum or plasma low density lipoprotein (LDL) cholesterol measurement (mass/volume)on 10-19-2021 Cholesterol in LDL [Mass/Vol] 117 mg/dL 0-130 [facility] Work Phone: Serum or plasma urea nitroge n measurement (mass/volume)on 10-19-2021 Urea nitrogen [Mass/Vol] 14 mg/dL 7-18 [facility] Work Phone: Thin prep Papanicolaou smear with manual screeningon 10-19-2021 Thin prep Papanicolaou smear with manual screening 20 U/L 15-37 [facility] Work Phone: Thin prep Papanicolaou smear with manual screening 7 5-15 [facility] Work Phone: Vital Signs Date Time Vital Sign Value Performing Clinician Agapito ramirez 09-10-2024 10:52-0400 Body height 182.[address] Vidhya Moreno MD Work Phone: [facility] 09-10-2024 10:52-0400 Body mass index (BMI) [Ratio] 45.7 kg/m2 Dr. Vidhya Moreno MD Work Phone: [facility] 09-10-2024 10:52-0400 Body temperature 97.3 [degF] Dr. Vidhya Moreno MD Work Phone: [facility] 09-10-2024 10:52-0400 Body weight 152.[address] Vidyha Moreno MD Work Phone: [facility] 09-10-2024 10:52-0400 Diastolic blood pressure 92 mm[Hg] Dr. Vidhya Moreno MD Work Phone: [facility] 09-10-2024 10:52-0400 Heart rate 74 /min Dr. Vidhya Moreno MD Work Phone: [facility] 09-10-2024 10:52-0400 Respiratory rate 18 /min Dr. Vidhya Moerno MD Work Phone: [facility] 09-10-2024 10:52-0400 SaO2% (BldA) [Mass fraction] 93 % Dr. Vidhya Moreno MD Work Phone: [facility] 09-10-2024 10:52-0400 Systolic blood pressure 132 mm[Hg] Dr. Vidhya Moreno MD Work Phone: [facility] 07-31-2024 10:26-0400 Body height 182.[address] Vidhya Moreno MD Work Phone: [facility] 07-31-2024 10:26-0400 Body mass index (BMI) [Ratio] 46.7 kg/m2 Dr. Vidhya Moreno MD Work Phone: [facility] 07-31-2024 10:26-0400 Body temperature 97.4 [degF] Dr. Vidhya Moreno MD Work Phone: [facility] 07-31-2024 10:26-0400 Body weight 156.[address] Vidhya Moreno MD Work Phone: [facility] 07-31-2024 10:26-0400 Diastolic blood pressure 88 mm[Hg] Dr. Vidhya Moreno MD Work Phone: [facility] 07-31-2024 10:26-0400 Heart rate 70 /min Dr. Vidhya Moreno MD Work Phone: [facility] 07-31-2024 10:26-0400 Respiratory rate 18 /min Dr. Vidhya Moreno MD Work Phone: [facility] 07-31-2024 10:26-0400 SaO2% (BldA) [Mass fraction] 97 % Dr. Vidhya Moreno MD Work Phone: [facility] 07-31-2024 10:26-0400 Systolic blood pressure 124 mm[Hg] Dr. Vidhya Moreno MD Work Phone: [facility] 06-28-2024 09:40-0400 Body temperature 97.8 [degF] Dr. Laura Gomez MD Work Phone: [facility] 06-28-2024 09:40-0400 Diastolic blood pressure 71 mm[Hg] Dr. Laura Gomez MD Work Phone: [facility] 06-28-2024 09:40-0400 Heart rate 67 /min Dr. Laura Gomez MD Work Phone: [facility] 06-28-2024 09:40-0400 Respiratory rate 16 /min Dr. Laura Gomez MD Work Phone: [facility] 06-28-2024 09:40-0400 SaO2% (BldA) [Mass fraction] 96 % Dr. Laura Gomez MD Work Phone: [facility] 06-28-2024 09:40-0400 Systolic blood pressure 104 mm[Hg] Dr. Laura Gomez MD Work Phone: [facility] 06-28-2024 07:14-0400 Body height 185.[address] Laura Gomez MD Work Phone: 7(476)399-467536 [address] 06-28-2024 07:14-0400 Body mass index (BMI) [Ratio] 45.6 kg/m2 Dr. Laura Gomez MD Work Phone: 1(226)509-741199 [place] [address] 06-28-2024 07:14-0400 Body weight [address] Laura Gomez MD Work Phone: 9(169)298-130627 [place] [address] 06-04-2024 10:10-0400 Body mass index (BMI) [Ratio] 48.6 kg/m2 Dr. Laura Gomez MD Work Phone: 7(881)258-195127 [place] [address] 06-04-2024 10:10-0400 Body temperature 97.6 [degF] Dr. Laura Gomez MD Work Phone: 2(481)303-134927 [place] [address] 06-04-2024 10:10-0400 Body weight 167.[address] Laura Gomez MD Work Phone: 6(405)225-934627 [place] [address] 06-04-2024 10:10-0400 Diastolic blood pressure 97 mm[Hg] Dr. Laura Gomez MD Work Phone: 0(616)337-809299 [place] [address] 06-04-2024 10:10-0400 Heart rate 70 /min Dr. Laura Gomez MD Work Phone: 2(134)198-473299 [place] [address] 06-04-2024 10:10-0400 Respiratory rate 18 /min Dr. Laura Gomez MD Work Phone: 2(650)940-547999 [place] [address] 06-04-2024 10:10-0400 SaO2% (BldA) [Mass fraction] 95 % Dr. Laura Gomez MD Work Phone: 6(381)661-691299 [place] [address] 06-04-2024 10:10-0400 Systolic blood pressure 156 mm[Hg] Dr. Laura Gomez MD Work Phone: [facility] 06-03-2024 10:57-0400 Body mass index (BMI) [Ratio] 49.4 kg/m2 Dr. Laura Gomez MD Work Phone: [facility] 06-03-2024 10:57-0400 Body temperature 97.2 [degF] Dr. Laura Gomez MD Work Phone: [facility] 06-03-2024 10:57-0400 Body weight 165.[address] Laura Gomez MD Work Phone: [facility] 06-03-2024 10:57-0400 Diastolic blood pressure 84 mm[Hg] Dr. Laura Gomez MD Work Phone: [facility] 06-03-2024 10:57-0400 Heart rate 68 /min Dr. Laura Gomez MD Work Phone: [facility] 06-03-2024 10:57-0400 Respiratory rate 18 /min Dr. Laura Gomez MD Work Phone: [facility] 06-03-2024 10:57-0400 SaO2% (BldA) [Mass fraction] 96 % Dr. Laura Gomez MD Work Phone: [facility] 06-03-2024 10:57-0400 Systolic blood pressure 136 mm[Hg] Dr. Laura Gomez MD Work Phone: [facility] 03-04-2024 13:03-0500 Diastolic blood pressure 82 mm[Hg] Dr. Laura Gomez MD Work Phone: [facility] 03-04-2024 13:03-0500 Systolic blood pressure 132 mm[Hg] Dr. Laura Gomez MD Work Phone: [facility] 03-04-2024 11:00-0500 Body height 182.[address] Laura Gomez MD Work Phone: [facility] 03-04-2024 11:00-0500 Body mass index (BMI) [Ratio] 49.1 kg/m2 Dr. Laura Gomez MD Work Phone: [facility] 03-04-2024 11:00-0500 Body temperature 97 [degF] Dr. Laura Gomez MD Work Phone: [facility] 03-04-2024 11:00-0500 Body weight 164.[address] Laura Gomez MD Work Phone: [facility] 03-04-2024 11:00-0500 Heart rate 64 /min Dr. Laura Gomez MD Work Phone: [facility] 03-04-2024 11:00-0500 Respiratory rate 18 /min Dr. Laura Gomez MD Work Phone: [facility] 03-04-2024 11:00-0500 SaO2% (BldA) [Mass fraction] 98 % Dr. Laura Gomez MD Work Phone: [facility] 04-12-2023 10:26-0500 Heart rate 65 /min Gume Gray MD Work Phone: [facility] 04-12-2023 10:26-0500 Respiratory rate 16 /min Gume Gray MD Work Phone: [facility] 04-12-2023 10:26-0500 SaO2% (BldA) [Mass fraction] 95 % Gume Gray MD Work Phone: [facility] 04-12-2023 10:16-0500 Diastolic blood pressure 85 mm[Hg] Gume Gray MD Work Phone: [facility] 04-12-2023 10:16-0500 Systolic blood pressure 138 mm[Hg] Gume Gray MD Work Phone: [facility] 04-12-2023 09:07-0500 Body temperature 97.5 [degF] Gume Gray MD Work Phone: [facility] 04-12-2023 09:07-0500 Body weight 150.9 kg Gume Gray MD Work Phone: [facility] 03-30-2023 10:120500 Body height 185.4 cm Gume Gray MD Work Phone: [facility] 03-30-2023 10:12-0500 Body temperature 97.9 [degF] Gume Gray MD Work Phone: [facility] 03-30-2023 10:12-0500 Body weight 150.87 kg Gume Gray MD Work Phone: [facility] 03-30-2023 10:12-0500 Diastolic blood pressure 88 mm[Hg] Gume Gray MD Work Phone: [facility] 03-30-2023 10:12-0500 Heart rate 78 /min Gume Gray MD Work Phone: [facility] 03-30-2023 10:12-0500 SaO2% (BldA) [Mass fraction] 99 % Gume Gray MD Work Phone: [facility] 03-30-2023 10:12-0500 Systolic blood pressure 136 mm[Hg] Gume Gray MD Work Phone: [facility] 10-19-2021 11:080400 Body height 182.88 cm [facility] Work Phone: Encounters Encounter Date Encounter Type Care Provider Facility Start: 10-12-2024 ambulatory Vidhya Moreno Facility :[facility] Start: 09-10-2024 End: 09-10-[address] Vidhya Moreno MD -[facility] Work Phone: Start: 09-10-2024 End: 09-10-[address] Vidhya Moreno MD Work Phone: -[facility] Start: 07-31-2024 End: 07-31-2024 Patient encounter procedure Juan AN -[facility] Work Phone: Start: 07-31-2024 End: 07-31-[address] Vidhya Moreno MD Work Phone: [facility] Work Phone: Start: 06-28-2024 ambulatory Vidhya Moreno Facility :[facility] Start: 06-28-2024 Non-patient / Non-visit Dr. Oleg Yoon MD -[facility] Start: 06-28-2024 End: 06-28-2024 Admission to same day surgery center Dr. Oleg Yoon MD -Endoscopy Work Phone: Start: 06-28-2024 End: 06-28-[address] Laura Gomez MD Work Phone: [facility] Work Phone: Start: 06-04-2024 End: 06-04-[address] Oleg Yoon MD -[facility] Work Phone: Start: 06-04-2024 End: 06-04-2024 ambulatory Vidhya Moreno Facility:[facility] Start: 06-03-2024 End: 06-03-[address] Vidhya Moreno MD -[facility] Work Phone: Start: 06-03-2024 End: 06-03-2024 ambulatory Vidhya Moreno Facility:[facility] Start: 05-13-2024 End: 05-13-[address] aLura Gomez MD Work Phone: [facility] Work Phone: Start: 05-13-2024 End: 05-13-[address] Melchor Feldman MD -Physical Therapy Work Phone: Start: 03-08-2024 End: 03-08-[address] Vidhya Moreno MD -Radiology, [facility] Work Phone: Start: 03-08-2024 End: 03-08-2024 ambulatory Vidhya Moreno Facility:[facility] Start: 03-04-2024 End: 03-04-[address] Vidhya Moreno MD -Laboratory, [facility] Start: 03-04-2024 End: 03-04-[address] Vidhya Moreno MD -[facility] Work Phone: Start: 03-04-2024 End: 03-04-2024 ambulatory Vidhya Moreno Facility:[facility] Start: 03-04-2024 End: 03-04-2024 ambulatory Vidhya Moreno Facility:[facility] Start: 04-12-2023 End: 04-12-2023 ambulatory GUME GRAY Facility:[facility] Start: 04-12-2023 End: 04-12-2023 Subsequent hospital visit by physician Gume Gray MD Work Phone: Ambulatory Surgery Comment on above: Gastroesophageal ref lux disease, unspecified whether esophagitis present [K21.9] Start: 03-30-2023 End: 12-20-2023 Telephone encounter Gume Gray MD Work Phone: General Surgery Comment on above: 04/12/2023 EGD [facility] Start: 03-30-2023 End: 03-30-2023 Patient encounter procedure Gume Gray MD Work Phone: General Surgery Comment on above: Gastroesophageal ref lux disease, unspecified whether esophagitis present (Primary Dx) Start: 03-30-2023 End: 03-30-2023 ambulatory GUME GRAY Facility:[facility] Start: 11-24-2022 End: 11-24-2022 ambulatory [facility] Work Phone: Start: 11-24-2022 End: 11-24-2022 Patient encounter procedure [facility] Start: 10-19-2021 End: 10-19-2021 ambulatory [facility] Work Phone: Start: 10-19-2021 End: 10-19-2021 Patient encounter procedure [facility] Procedures Date Procedure Procedure Detail Performing Clinician Start: 06-28-[address] Laura Gomez MD Work Phone: Start: 03-08-2024 X-ray of knee, four or more views Dr[address] Marybel Gomez MD Work Phone: Start: 03-04-2024 Measurement of renal function Dr. Zachary Gomez MD Work Phone: Comment on above: GFR Calc Start: 04-12-2023 Esophagogastroduodenoscopy transoral diagnostic Gume Gray MD Work Phone: Start: 05-12-2014 Colonoscopy Gume Gray MD Work Phone: Plan of Treatment Date Care Activity Detail Author Start: 07-23-2028 Urine microalbumin profile DTaP,Tdap,Td Vaccine (2 - Td or Tdap) [facility] Start: 06-28-2024 Colonoscopy w/biopsy single/multiple COLONOSCOPY AND BIOPSY [facility] Start: 06-28-2024 Colsc flx w/rmvl of tumor polyp lesion snare tq COLONOSCOPY W/LESION REMOVAL [facility] Start: 06-28-2024 Egd transoral biopsy single/multiple EGD BIOPSY SINGLE/MULTIPLE [facility] Start: 06-28-2024 Patient discharge [facility] Start: 05-12-2024 Screening for malignant neoplasm of colon [facility] Start: 03-04-2024 Patient referral [facility] Work Phone: Start: 10-15-2023 Covid-19 Vaccine ( season) Covid-19 Vaccine () [facility] Start: 10-15-2023 Influenza vaccination Influenza Vacc ine (#1) [facility] Start: 02-13-2023 Depression Assessment Depression Ass essment [facility] Start: 2022 RSV Vaccine (1 - 1-dose 60+ series) RSV Vaccine (1 - 1-dose 60+ series) [facility] Start: 2022 RSV Vaccine (1 - Ris k 60-74 years 1-dose series) RSV Vaccine (1 - Risk 60-74 years 1-dose series) [facility] Start: 10-14-2022 Covid-19 Vaccine ( season) Covid-19 Vaccine ( season) [facility] Start: 2017 Prostate specific antigen measurement Prostate Cancer Screening Discussion [facility] Start: 2012 Shingrix Vaccine (1 of 2) Shingrix Vaccine (1 of 2) [facility] Start: 11-24-2007 Diabetes Screening Diabetes Screenin g [facility] Start: 11-24-2007 Screening for malignant neoplasm of colon [facility] Start: 1997 Lipid panel Lipid Screening [facility] Start: 1980 Annual PCP Team Chronic Disease Visit Annual PCP Team Chronic Disease Visit [facility] Start: 1980 Anxiety Screening Anxiety Screening [facility] Start: 1980 BP Controlled (<130/80) BP Controlled (<130/80) [facility] Start: 1980 Depression Screening Depression Scre ening [facility] Start: 1980 Hepatitis C screening Hepatitis C Sc reening [facility] Start: 1980 HIV screening HIV Screening [facility] Colonoscopy [facility] End: 03-30-2024 EGD DIAGNOSTIC EGD DIAGNOSTIC Endoscopy Routine Gastroesophageal reflux disease, unspecified whether esophagitis present 1 Occurrences starting 03/30/2023 until 03/30/2024 [facility] Work Phone: Comment on above: 1 Occurrences starti ng 03/30/2023 until 03/30/2024 MR Lower Extremity Joint [facility] Patient referral [facility] Work Phone: SURGICAL PATHOLOGY [facility] Work Phone: Comment on above: Release Upon Terri stover for 1 Occurrences starting 04/12/2023, 1 completed [facility] Immunizations Immunization Date Immunization Notes Care Provider Fa ciliradha 03-04-2024 influenza, injectabl e, madin nicho canine kidney, preservative free Dr. Laura Gomez MD Work Phone: [facility] 11-24-2022 influenza virus vaccine, unspecified formulation Gume Gray MD Work Phone: [facility] 10-28-2019 Influenza virus vaccine [facility] 12-27-2012 tetanus and diphther ia toxoids, adsorbed, preservative free, for adult use (2 Lf of tetanus toxoid and 2 Lf of diphtheria toxoid) [facility] Payers Date Payer Category Payer Self-pay [id number] 2024 Unknown [id number] 2021 Private Health Insurance [facility] UMR CHOICE PLUS [id number] 2021-Present [phone] [address] [address] [place] [address] HMO [id number] 2014 Unknown [id number] Unknown [id number] Unknown [id number] Unknown [id number] Unknown [id number] Unknown [id number] Unknown [id number] Unknown [id number] .[id number] Unknown [id number] Unknown [id number] Unknown [id number] Unknown [id number] Social History Date Type Detail Facility Start: 12-13-2019 Tobacco smoking stat us NHIS Unknown if ever smoked [facility] Start: 12-13-2019 Non-smoker [facility] Start: 1960 Sex Assigned At Male [facility] Start: 02-24-2011 End: 06-27-2024 Tobacco smoking status NHIS Never smoked tobacco [facility] Work Phone: Start: 02-24-2011 Tobacco use and exposure Smokeless tobacco non-user [facility] Work Phone: Start: 03-30-2023 End: 04-12-2023 Alcohol intake Current non-drinker of alcohol (finding) [facility] Start: 03-30-2023 End: 04-12-2023 History of Social function [facility] Start: 03-30-2023 End: 04-12-2023 Tobacco use panel [facility] National Score (1-10 0), lower number is lower risk 48 [facility] Start: 03-30-2023 Gender identity Identifies as male gender (finding) [facility] Start: 03-30-2023 Sexual orientation Heterosexual (fin ding) [facility] Start: 05-13-2024 Sex Male (finding) [facility] Medical Equipment Procedure Code Equipment Code Equipment Origin al Text Equipment Identifier Dates SEALANT,FLOSEAL HEMOSTATIC 5ML FDA Start: 12-25-2019 SEALANT,FLOSEAL HEMOSTATIC 5ML FDA Start: 12-25-2019 SEALANT,FLOSEAL HEMOSTATIC 5ML FDA Start: 12-25-2019 SEALANT,FLOSEAL HEMOSTATIC 5ML FDA Start: 12-25-2019 SEALANT,FLOSEAL HEMOSTATIC 5ML FDA Start: 12-25-2019 SEALANT,FLOSEAL HEMOSTATIC 5ML FDA Start: 12-25-2019 SEALANT,FLOSEAL HEMOSTATIC 5ML FDA Start: 12-25-2019 SEALANT,FLOSEAL HEMOSTATIC 5ML FDA Start: 12-25-2019 SEALANT,FLOSEAL HEMOSTATIC 5ML FDA Start: 12-25-2019 SEALANT,FLOSEAL HEMOSTATIC 5ML FDA Start: 12-25-2019 SEALANT,FLOSEAL HEMOSTATIC 5ML FDA Start: 12-25-2019 SEALANT,FLOSEAL HEMOSTATIC 5ML FDA Start: 12-25-2019 Goals Date Patient Goal Desired Activity /State Mental Status Date Assessment Result Facility 06-28-2024 Cognitive function Voice/Name [facility] Work Phone: Clinical Notes 03-30-2023 to 06-28-2024 Note Date & Type Note Facility 06-28-2024 Procedure note [facility] 06-28-2024 Procedure note [facility] 06-28-2024 Procedure note [facility] 06-28-2024 Procedure note [facility] 06-28-2024 Consult note [facility] 06-28-2024 Consult note [facility] 06-28-2024 Consult note Note Date/Time June 28, 2024 7:29am [facility] Medical Records Department [address] [place] [address] Pre-Anesthesia Evaluation 06/28/24 0729 MR#: [id number] Acct: [id number] Name: MARVA WAGNER Rep #:[id number] : 1960 63 From: Chago Spear MD PCP: Dr. Vidhya Moreno MD Status:REG [facility] [place] Race: C Location: [place] [address] ASA Classification* ASA Classification ASA Classification: 3 Assessment & Plan Anesthesia* Anesthesia Assessment Anesthesia Assessment: Discussed sedation and/or anesthesia options, risks, benefits, and alternatives with patient/parents/legal guardian/POA. Questions invited. The patient/parents/legal guardian/POA seems to understand and agrees to proceedwith anesthesia plan. Reviewed the physical assessment, medical history, allergy history and patient home medications list prior to surgery/procedure/anesthetic and documented any changes. Performed airway and anesthesia risk assessments. Anesthesia Type Anesthesia Type: MAC Anesthesia Focused Assessment* Temperature: 97.3 F Pulse Rate: 61 Blood Pressure: 140/87 Respiratory Rate: 16 Pulse Ox: 99 Airway Assessment Mouth opens: >3 cm Mallampati Score: III Focused Labs Anesthesia Preop lab: CBC WBC 6.4 K/mm3 (4.4-11.0) 03/04/24 12:19 03/04/24 RBC 5.94 M/mm3 (4.6-6.2) 03/04/24 12:19 03/04/24 Hgb 15.7 g/dL (13.0-16.5) 03/04/24 12:19 03/04/24 Hct 49.8 % (40-54) 03/04/24 12:19 03/04/24 Plt Count 266 K/mm3 (150-450) 03/04/24 12:19 03/04/24 CHEMISTRY Potassium 4.3 mmol/L (3.5-5.1) 03/04/24 12:19 03/04/24 Sodium 139 mmol/L (136-145) 03/04/24 12:19 03/04/24 BUN 12 mg/dL (7-18) 03/04/24 12:19 03/04/24 Creatinine 0.93 mg/dL (0.70-1.30) 03/04/24 12:03/04/24 Glucose 107 mg/dL (74-106) H 03/04/24 12:19 03/04/24 TSH 1.800 uIU/mL (0.358-3.740) 03/04/24 12:02/14 COAG Pre-Assessment Diagnosis/Proposed Procedure Planned Operative Procedure(s): EGD/CSCOPE Anesthesia History 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 When Was Last Pacemaker Check QUESTION #4 FULL TEXT: You/Your Family Experience fever (hyperthermia) with Anesthesia Last Oral Intake Last Oral intake: Last Oral Intake NPO since 16:00 06/28/24 07:14 Meds taken in AM with sips of No 06/28/24 07:14 water? Meds patient instructed to take am of surgery PONV PONV - milk house worker: PONV - milk house worker Female No 06/27/24 09:51 HX of Motion Sickness Yes 06/27/24 09:51 HX of N/V After Surgery No 06/27/24 09:51 Non-Smoker Yes 06/27/24 09:51 Duration of Surgery greater No 06/27/24 09:51 than 60 minutes Number of Risk Factors 2 06/27/24 09:51 PONV Score Moderate Risk 06/27/24 09:51 Height & Weight Height & Weight: Anesthesia: Height & Weight Height 6 ft 1 in 06/28/24 07:14 Weight: 157 kg 06/28/24 07:14 Body Mass Index (BMI) 45.6 06/28/24 07:14 Respiratory Assessment Respiratory Assessment - milk house worker: Respiratory Tract Infection Hx - milk house worker Hx Respiratory Tract Infection No 06/27/24 09:51 STOP Sleep Apnea STOP Sleep Apnea - milk house worker: STOP Sleep Apnea - milk house worker Hx Hypertension Yes: CONTROLLED WITH MED 06/27/24 09:51 Hx Sleep Apnea Yes 06/27/24 09:51 CPAP Yes 06/27/24 09:51 BIPAP No 06/27/24 09:51 Do you snore loudly (louder than talking or can be heard Do you often feel tired/ fatigued/ sleepy during daytime? Has anyone observed you stop breathing during sleep? STOP Results Positive 06/27/24 09:51 QUESTION #5 FULL TEXT : Do you snore loudly (louder than talking or can be heard through closed doors)? Tobacco Use History Tobacco Use History - milk house worker: Tobacco Use History - milk house worker Tobacco Use Smoking Status Never smoker 06/27/24 09:51 Hx Tobacco Use No 06/27/24 09:51 Years Smoking Packs Smoked per Day Smoking Cessation Date was within the last 15 years Hx Smoking Cessation Date Hx Smoking Cessation Counseling Hematologic Medial History Hematologic Hx - milk house worker: Hematologic Medical Hx - box icer Hx of Blood Transfusion No 06/27/24 09:51 Hx of Transfusion in last 3 No 06/27/24 09:51 Months Date of Last Transfusion (if within last 3 months) Ever experience any problems No 06/27/24 09:51 with transfusion(s)? Specify any problems Hx of Preganancy in last 3 N/A 06/27/24 09:51 Months Nurse Filling Out Transfusion DSCHRIBER 06/27/24 09:51 & Questions: Date: 06/27/24 06/27/24 09:51 Time: 09:52 06/27/24 09:51 Patient unable to answer at this time (ie. confused, unrespo /Reproduction History /Reproductive History - milk house worker: /Reproductive Hx- milk house worker Hx Now No 06/27/24 09:51 Gestational Age (in weeks): EDC: Hx Hx Para Hx Section SAB No 06/27/24 09:51 Active Medications Active Medications: Current Medications Generic Name Dose Route Start Last Admin Trade Name Freq PRN Reason Stop Dose Admin Lactated Ringer's 1,000 mls @ 15 mls/hr 06/28/24 07:00 06/28/24 07:24 IV 15 mls/hr .Q48H PRINCE Administration PFSH Medical History Loss of hearing Wears glasses Wears dentures Diabetes Arthritis Anemia High cholesterol Restless legs Back pain Hypertension Non-smoker CPAP (continuous positive airway pressure) dependence Shortness of breath on exertion Leg cramps History of pain when walking History of edema Personal history of colonic polyps GERD (gastroesophageal reflux disease) Asthma 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 Home Medications ?Medication ?Instructions ?Recorded ?Last Taken ?Type cetirizine 10 mg capsule (Zyrtec) 10 mg PO QDAY allerg y symptoms 03/04/24 06/27/24 History omeprazole 20 mg capsule,delayed 20 mg PO QDAY 5 06/20/24 History release tirzepatide (weight loss) 2.5 2.5 mg (0.5 mL) subcut Q WEEK #2 mL 06/03/24 06/16/24 Rx mg/0.5 mL subcutaneous pen injector (Zepbound) atenolol 50 mg tablet 50 mg PO 1000 06/27/2406/27 History Allergy/AdvReac Type Severity Reaction Status Date / Time finasteride AdvReac Mild PT UNSURE Verified 06/28/24 07:12 OF REACTION Family History Mother Asthma Arthritis Breast cancer Thyroid disorder Cancer pancreatic Brother Asthma Arthritis Hypertension Sister Asthma Arthritis Breast cancer Thyroid disorder Hypertension Grandmother Arthritis Grandfather Arthritis Daughter Thyroid disorder Father Cancer lung Surgical History Hx of right cataract extraction Hx of left cataract extraction History of esophagogastroduodenoscopy (EGD) H/O colonoscopy H/O arthroscopic knee surgery History of surgical procedure H/O prostatectomy Social History household members: family current occupational status: employed 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 06/28/24728 <Electronically signed by Chago Spear MD> Date _ Chago Spear MD Cosigner Signature: Date CC: ~ Signed [facility] Work Phone: [phone] History and physical note [facility] Medical Records Department [address] [place] [address] History & Physical Exam 06/28/24 0838 MR#: [id number] Acct: [id number] Name: MARVA WAGNER Rep #:[id number] : 1960 63 From: Oleg Yoon MD PCP: Dr. Vidhya Moreno MD Status:[facility] Location: [address] HPI - General General Date of Service: 06/28/24 Chief Complaint: EGD and colonoscopy HPI Narrative The patient is a 63-year-old male who is being seen today to schedule at least acolonoscopy as his last colonoscopy was about 10 years ago. He did have colon polyps on a previous colonoscopy so he iscertainly overdue for colonoscopy. Hehad an EGD couple of years ago which was unremarkable however he states that hisacid reflux symptoms seem to be worsening. As result his PCP is advising repeatEGDas well. Patient presents today to discuss the scopes and to get these scheduled. He denies any lower GI issues such as blood in his stools or black or tarry stools. He does have a family history of colon polyps as well. 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 Home Medications ?Medication ?Instructions ?Recorded ?Last Taken ?Type cetirizine 10 mg capsule (Zyrtec) 10 mg PO QDAY allerg y symptoms 03/04/24 06/27/24 History omeprazole 20 mg capsule,delayed 20 mg PO QDAY 5 06/20/24 History release tirzepatide (weight loss) 2.5 2.5 mg (0.5 mL) subcut Q WEEK #2 mL 06/03/24 06/16/24 Rx mg/0.5 mL subcutaneous pen injector (Zepbound) atenolol 50 mg tablet 50 mg PO 1000 06/27/2406/27 History Allergy/AdvReac Type Severity Reaction Status Date / Time finasteride AdvReac Mild PT UNSURE Verified 06/28/24 07:12 OF REACTION Family History Mother Asthma Arthritis Breast cancer Thyroid disorder Cancer pancreatic Brother Asthma Arthritis Hypertension Sister Asthma Arthritis Breast cancer Thyroid disorder Hypertension Grandmother Arthritis Grandfather Arthritis Daughter Thyroid disorder Father Cancer lung Surgical History Hx of right cataract extraction Hx of left cataract extraction History of esophagogastroduodenoscopy (EGD) H/O colonoscopy H/O arthroscopic knee surgery History of surgical procedure H/O prostatectomy Social History household members: family current occupational status: employed 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[employer]) Smoking Status: Never smoker second hand exposure: No alcohol intake: never substance use type: does not use caffeine: No eating out: rarely or never do you feel safe at home: Yes Vital Signs Vital Signs Vital Signs: 06/28/24 07:14 06/28/24 07:14 06/28/24 07:29 Temperature 97.3 F L 97.3 F L Temperature Source Temporal Pulse Rate 61 61 Respiratory Rate 16 16 Respiratory Pattern Normal Blood Pressure 140/87 H 140/87 H Blood Pressure Mean 104 Blood Pressure Source Monitor Blood Pressure Position Semi-Fowlers Blood Pressure Location Right Arm Pulse Ox 99 99 Oxygen Delivery Method Room Air Weight Weight: 346 lb 2.012 oz Body Mass Index (BMI) 45.6 Physical Exam Const alert, oriented x3 and no apparent distress Assessment & Plan Assessment/Plan (1) Personal history of colonic polyps: (2) GERD (gastroesophageal reflux disease): PLAN: Plan EGD and colonoscopy planned for today. 06/28/24 0846 Cosigner Signature (if applicable): CC: Dr. Vidhya Moreno MD; Dr. Oleg Yoon MD~ Signed [facility]05-16-2025 History and physical note [facility] Medical Records Department [address] [place] [address] History & Physical Exam 06/28/24 0841 MR#: [id number] Acct: [id number] Name: MARVA WAGNER Rep #:[id number] : 1960 63 From: Oleg Yoon MD PCP: Dr. Vidhya Moreno MD Status:[facility] Location: [place] [address] HPI - General General Date of Admission: 06/28/24 Chief Complaint: EGD and colonoscopy HPI Narrative MARVA WAGNER, is a 63 M who presents 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 Home Medications ?Medication ?Instructions ?Recorded ?Last Taken ?Type cetirizine 10 mg capsule (Zyrtec) 10 mg PO QDAY allerg y symptoms 03/04/24 06/27/24 History omeprazole 20 mg capsule,delayed 20 mg PO QDAY 5 06/20/24 History release tirzepatide (weight loss) 2.5 2.5 mg (0.5 mL) subcut Q WEEK #2 mL 06/03/24 06/16/24 Rx mg/0.5 mL subcutaneous pen injector (Zepbound) atenolol 50 mg tablet 50 mg PO 1000 06/27/2406/27 History Allergy/AdvReac Type Severity Reaction Status Date / Time finasteride AdvReac Mild PT UNSURE Verified 06/28/24 07:12 OF REACTION Family History Mother Asthma Arthritis Breast cancer Thyroid disorder Cancer pancreatic Brother Asthma Arthritis Hypertension Sister Asthma Arthritis Breast cancer Thyroid disorder Hypertension Grandmother Arthritis Grandfather Arthritis Daughter Thyroid disorder Father Cancer lung Surgical History Hx of right cataract extraction Hx of left cataract extraction History of esophagogastroduodenoscopy (EGD) H/O colonoscopy H/O arthroscopic knee surgery History of surgical procedure H/O prostatectomy Social History household members: family current occupational status: employed 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[employer]) Smoking Status: Never smoker second hand exposure: No alcohol intake: never substance use type: does not use caffeine: No eating out: rarely or never do you feel safe at home: Yes Vital Signs Vital Signs Vital Signs: 06/28/24 07:14 06/28/24 07:14 06/28/24 07:29 Temperature 97.3 F L 97.3 F L Temperature Source Temporal Pulse Rate 61 61 Respiratory Rate 16 16 Respiratory Pattern Normal Blood Pressure 140/87 H 140/87 H Blood Pressure Mean 104 Blood Pressure Source Monitor Blood Pressure Position Semi-Fowlers Blood Pressure Location Right Arm Pulse Ox 99 99 Oxygen Delivery Method Room Air Weight Weight: 346 lb 2.012 oz Body Mass Index (BMI) 45.6 06/28/24 0841 Cosigner Signature (if applicable): CC: Dr. Vidhya Moreno MD; Dr. Oleg Yoon MD~ Signed [facility]05-16-2025 [facility] Medical Records Department [address] [place] [address] History Physical Exam 06/28/24 0841 MR#: [id number] Acct: [id number] Name: MARVA WAGNER Rep #: [id number] : 1960 63 From: Oleg Yoon MD PCP: Dr. Vidhya Moreno MD Status:[facility] Location: [place] [address] HPI - General General Date of Admission: 06/28/24 Chief Complaint: EGD and colonoscopy HPI Narrative MARVA WAGNER, is a 63 M who presents 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 Home Medications ???Medication ???Instructions ???Recorded ???Last Taken ???Type cetirizine 10 mg capsule (Zyrtec) 10 mg PO QDAY allergy symptoms 06/27/24 History omeprazole 20 mg capsule,delayed 20 mg PO QDAY 06/03/24 06/20/24 Hi story release tirzepatide (weight loss) 2.5 2.5 mg (0.5 mL) subcut QWEEK #2 mL 06/03/24 06/16/24 Rx mg/0.5 mL subcutaneous pen injector (Zepbound) atenolol 50 mg tablet 50 mg PO 1000 06/27/24 06/27/24 Hi story Allergy/AdvReac Type Severity Reaction Status Date / Time finasteride AdvReac Mild PT UNSURE Verified 06/28/24 07:12 OF REACTION Family History Mother Asthma Arthritis Breast cancer Thyroid disorder Cancer pancreatic Brother Asthma Arthritis Hypertension Sister Asthma Arthritis Breast cancer Thyroid disorder Hypertension Grandmother Arthritis Grandfather Arthritis Daughter Thyroid disorder Father Cancer lung Surgical History Hx of right cataract extraction Hx of left cataract extraction History of esophagogastroduodenoscopy (EGD) H/O colonoscopy H/O arthroscopic knee surgery History of surgical procedure H/O prostatectomy Social History household members: family current occupational status: employed 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[employer]) Smoking Status: Never smoker second hand exposure: No alcohol intake: never substance use type: does not use caffeine: No eating out: rarely or never do you feel safe at home: Yes Vital Signs Vital Signs Vital Signs: 06/28/24 07:14 06/28/24 07:14 06/28/24 07:29 Temperature 97.3 F L 97.3 F L Temperature Source Temporal Pulse Rate 61 61 Respiratory Rate 16 16 Respiratory Pattern Normal Blood Pressure 140/87 H 140/87 H Blood Pressure Mean 104 Blood Pressure Source Monitor Blood Pressure Position Semi-Fowlers Blood Pressure Location Right Arm Pulse Ox 99 99 Oxygen Delivery Method Room Air Weight Weight: 346 lb 2.012 oz Body Mass Index (BMI) 45.6 06/28/24 0841 Cosigner Signature (if applicable): CC: Dr. Vidhya Moreno MD; Dr. Oleg Yoon [facility] Medical Records Department [address] [place] [address] History Physical Exam 06/28/24 0841 MR#: [id number] Acct: [id number] Name: KRISTYMARVA R Rep #: [id number] : 1960 63 From: Oleg Yoon MD PCP: Dr. Vidhya Moreno MD Status:[facility] Location: [facility] - General General Chief Complaint: EGD and colonoscopy 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 Home Medications ???Medication ???Instructions ???Recorded ???Last Taken ???Type cetirizine 10 mg capsule (Zyrtec) 10 mg PO QDAY allergy symptoms 06/27/24 History omeprazole 20 mg capsule,delayed 20 mg PO QDAY 06/03/24 06/20/24 Hi story release tirzepatide (weight loss) 2.5 2.5 mg (0.5 mL) subcut QWEEK #2 mL 06/03/24 06/16/24 Rx mg/0.5 mL subcutaneous pen injector (Zepbound) atenolol 50 mg tablet 50 mg PO 1000 06/27/24 06/27/24 Hi story Allergy/AdvReac Type Severity Reaction Status Date / Time finasteride AdvReac Mild PT UNSURE Verified 06/28/24 07:12 OF REACTION Family History Mother Asthma Arthritis Breast cancer Thyroid disorder Cancer pancreatic Brother Asthma Arthritis Hypertension Sister Asthma Arthritis Breast cancer Thyroid disorder Hypertension Grandmother Arthritis Grandfather Arthritis Daughter Thyroid disorder Father Cancer lung Surgical History Hx of right cataract extraction Hx of left cataract extraction History of esophagogastroduodenoscopy (EGD) H/O colonoscopy H/O arthroscopic knee surgery History of surgical procedure H/O prostatectomy Social History household members: family current occupational status: employed 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[employer]) Smoking Status: Never smoker second hand exposure: No alcohol intake: never substance use type: does not use caffeine: No eating out: rarely or never do you feel safe at home: Yes Vital Signs Vital Signs Vital Signs: 06/28/24 07:14 06/28/24 07:14 06/28/24 07:29 Temperature 97.3 F L 97.3 F L Temperature Source Temporal Pulse Rate 61 61 Respiratory Rate 16 16 Respiratory Pattern Normal Blood Pressure 140/87 H 140/87 H Blood Pressure Mean 104 Blood Pressure Source Monitor Blood Pressure Position Semi-Fowlers Blood Pressure Location Right Arm Pulse Ox 99 99 Oxygen Delivery Method Room Air Weight Weight: 346 lb 2.012 oz Body Mass Index (BMI) 45.6 06/28/24 1625 Cosigner Signature (if applicable): CC: Dr. Vidhya Moreno MD; Dr. Oleg Yoon MD [facility]05-16-2025 [facility] Medical Records Department [address] [place] [address] History Physical Exam 06/28/24 0838 MR#: [id number] Acct: [id number] Name: MARVA WAGNER Rep #: [id number] : 1960 63 From: Oleg Yoon MD PCP: Dr. Vidhya Moreno MD Status:[facility] Location: [place] [address] HPI - General General Date of Service: 06/28/24 Chief Complaint: EGD and colonoscopy HPI Narrative The patient is a 63-year-old male who is being seen today to schedule at least a colonoscopy as his last colonoscopy was about 10 years ago. He did have colon polyps on a previous colonoscopy so he is certainly overdue for colonoscopy. He had an EGD couple of years ago which was unremarkable however he states that his acid reflux symptoms seem to be worsening. As result his PCP is advising repeat EGD as well. Patient presents today to discuss the scopes and to get these scheduled. He denies any lower GI issues such as blood in his stools or black or tarry stools. He does have a family history of colon polyps as well. 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 Home Medications ???Medication ???Instructions ???Recorded ???Last Taken ???Type cetirizine 10 mg capsule (Zyrtec) 10 mg PO QDAY allergy symptoms 06/27/24 History omeprazole 20 mg capsule,delayed 20 mg PO QDAY 06/03/24 06/20/24 Hi story release tirzepatide (weight loss) 2.5 2.5 mg (0.5 mL) subcut QWEEK #2 mL 06/03/24 06/16/24 Rx mg/0.5 mL subcutaneous pen injector (Zepbound) atenolol 50 mg tablet 50 mg PO 1000 06/27/24 06/27/24 Hi story Allergy/AdvReac Type Severity Reaction Status Date / Time finasteride AdvReac Mild PT UNSURE Verified 06/28/24 07:12 OF REACTION Family History Mother Asthma Arthritis Breast cancer Thyroid disorder Cancer pancreatic Brother Asthma Arthritis Hypertension Sister Asthma Arthritis Breast cancer Thyroid disorder Hypertension Grandmother Arthritis Grandfather Arthritis Daughter Thyroid disorder Father Cancer lung Surgical History Hx of right cataract extraction Hx of left cataract extraction History of esophagogastroduodenoscopy (EGD) H/O colonoscopy H/O arthroscopic knee surgery History of surgical procedure H/O prostatectomy Social History household members: family current occupational status: employed 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[employer]) Smoking Status: Never smoker second hand exposure: No alcohol intake: never substance use type: does not use caffeine: No eating out: rarely or never do you feel safe at home: Yes Vital Signs Vital Signs Vital Signs: 06/28/24 07:14 06/28/24 07:14 06/28/24 07:29 Temperature 97.3 F L 97.3 F L Temperature Source Temporal Pulse Rate 61 61 Respiratory Rate 16 16 Respiratory Pattern Normal Blood Pressure 140/87 H 140/87 H Blood Pressure Mean 104 Blood Pressure Source Monitor Blood Pressure Position Semi-Fowlers Blood Pressure Location Right Arm Pulse Ox 99 99 Oxygen Delivery Method Room Air Weight Weight: 346 lb 2.012 oz Body Mass Index (BMI) 45.6 Physical Exam Const alert, oriented x3 and no apparent distress Assessment Plan Assessment/Plan (1) Personal history of colonic polyps: (2) GERD (gastroesophageal reflux disease): PLAN: Plan EGD and colonoscopy planned for today. 06/28/24 0846 Cosigner Signature (if applicable): CC: Dr. Vidhya Moreno MD; Dr. Oleg Yoon MD [facility]05-16-2025 Consult note [facility] Medical Records Department [address] [place] [address] Pre-Anesthesia Evaluation 06/28/24 0729 MR#: [id number] Acct: [id number] Name: MARVA WAGNER Rep #:[id number] : 1960 63 From: Chago Spear MD PCP: Dr. Vidhya Moreno MD Status:[facility] [place] Race: C Location: [place] [address] ASA Classification* ASA Classification ASA Classification: 3 Assessment & Plan Anesthesia* Anesthesia Assessment Anesthesia Assessment: Discussed sedation and/or anesthesia options, risks, benefits, and alternatives with patient/parents/legal guardian/POA. Questions invited. The patient/parents/legal guardian/POA seems to understand and agrees to proceedwith anesthesia plan. Reviewed the physical assessment, medical history, allergy history and patient home medications list prior to surgery/procedure/anesthetic and documented any changes. Performed airway and anesthesia risk assessments. Anesthesia Type Anesthesia Type: MAC Anesthesia Focused Assessment* Temperature: 97.3 F Pulse Rate: 61 Blood Pressure: 140/87 Respiratory Rate: 16 Pulse Ox: 99 Airway Assessment Mouth opens: >3 cm Mallampati Score: III Focused Labs Anesthesia Preop lab: CBC WBC 6.4 K/mm3 (4.4-11.0) 03/04/24 12:19 03/04/24 RBC 5.94 M/mm3 (4.6-6.2) 03/04/24 12:03/04/24 Hgb 15.7 g/dL (13.0-16.5) 03/04/24 12:19 03/04/24 Hct 49.8 % (40-54) 03/04/24 12:19 03/04/24 Plt Count 266 K/mm3 (150-450) 03/04/24 12:19 03/04/24 CHEMISTRY Potassium 4.3 mmol/L (3.5-5.1) 03/04/24 12:03/04/24 Sodium 139 mmol/L (136-145) 03/04/24 12:03/04/24 BUN 12 mg/dL (7-18) 03/04/24 12:03/04/24 Creatinine 0.93 mg/dL (0.70-1.30) 03/04/24 12:03/04/24 Glucose 107 mg/dL (74-106) H 03/04/24 12:03/04/24 TSH 1.800 uIU/mL (0.358-3.740) 03/04/24 12:02/14 COAG Pre-Assessment Diagnosis/Proposed Procedure Planned Operative Procedure(s): EGD/CSCOPE Anesthesia History 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 When Was Last Pacemaker Check QUESTION #4 FULL TEXT: You/Your Family Experience fever (hyperthermia) with Anesthesia Last Oral Intake Last Oral intake: Last Oral Intake NPO since 16:00 06/28/24 07:14 Meds taken in AM with sips of No 06/28/24 07:14 water? Meds patient instructed to take am of surgery PONV PONV - milk house worker: PONV - milk house worker Female No 06/27/24 09:51 HX of Motion Sickness Yes 06/27/24 09:51 HX of N/V After Surgery No 06/27/24 09:51 Non-Smoker Yes 06/27/24 09:51 Duration of Surgery greater No 06/27/24 09:51 than 60 minutes Number of Risk Factors 2 06/27/24 09:51 PONV Score Moderate Risk 06/27/24 09:51 Height & Weight Height & Weight: Anesthesia: Height & Weight Height 6 ft 1 in 06/28/24 07:14 Weight: 157 kg 06/28/24 07:14 Body Mass Index (BMI) 45.6 06/28/24 07:14 Respiratory Assessment Respiratory Assessment - milk house worker: Respiratory Tract Infection Hx - milk house worker Hx Respiratory Tract Infection No 06/27/24 09:51 STOP Sleep Apnea STOP Sleep Apnea - milk house worker: STOP Sleep Apnea - milk house worker Hx Hypertension Yes: CONTROLLED WITH MED 06/27/24 09:51 Hx Sleep Apnea Yes 06/27/24 09:51 CPAP Yes 06/27/24 09:51 BIPAP No 06/27/24 09:51 Do you snore loudly (louder than talking or can be heard Do you often feel tired/ fatigued/ sleepy during daytime? Has anyone observed you stop breathing during sleep? STOP Results Positive 06/27/24 09:51 QUESTION #5 FULL TEXT : Do you snore loudly (louder than talking or can be heard through closeddoors)? Tobacco Use History Tobacco Use History - milk house worker: Tobacco Use History - milk house worker Tobacco Use Smoking Status Never smoker 06/27/24 09:51 Hx Tobacco Use No 06/27/24 09:51 Years Smoking Packs Smoked per Day Smoking Cessation Date was within the last 15 years Hx Smoking Cessation Date Hx Smoking Cessation Counseling Hematologic Medial History Hematologic Hx - milk house worker: Hematologic Medical Hx - box icer Hx of Blood Transfusion No 06/27/24 09:51 Hx of Transfusion in last 3 No 06/27/24 09:51 Months Date of Last Transfusion (if within last 3 months) Ever experience any problems No 06/27/24 09:51 with transfusion(s)? Specify any problems Hx of Preganancy in last 3 N/A 06/27/24 09:51 Months Nurse Filling Out Transfusion DSCHRIBER 06/27/24 09:51 & Questions: Date: 06/27/24 06/27/24 09:51 Time: 09:52 06/27/24 09:51 Patient unable to answer at this time (ie. confused, unrespo /Reproduction History /Reproductive History - milk house worker: /Reproductive Hx- milk house worker Hx Now No 06/27/24 09:51 Gestational Age (in weeks): EDC: Hx Hx Para Hx Section SAB No 06/27/24 09:51 Active Medications Active Medications: Current Medications Generic Name Dose Route Start Last Admin Trade Name Freq PRN Reason Stop Dose Admin Lactated Ringer's 1,000 mls @ 15 mls/hr 06/28/24 07:00 06/28/24 07:24 IV 15 mls/hr .Q48H PRINCE Administration PFSH Medical History Loss of hearing Wears glasses Wears dentures Diabetes Arthritis Anemia High cholesterol Restless legs Back pain Hypertension Non-smoker CPAP (continuous positive airway pressure) dependence Shortness of breath on exertion Leg cramps History of pain when walking History of edema Personal history of colonic polyps GERD (gastroesophageal reflux disease) Asthma 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 Home Medications ?Medication ?Instructions ?Recorded ?Last Taken ?Type cetirizine 10 mg capsule (Zyrtec) 10 mg PO QDAY allerg y symptoms 03/04/24 06/27/24 History omeprazole 20 mg capsule,delayed 20 mg PO QDAY 5 06/20/24 History release tirzepatide (weight loss) 2.5 2.5 mg (0.5 mL) subcut Q WEEK #2 mL 06/03/24 06/16/24 Rx mg/0.5 mL subcutaneous pen injector (Zepbound) atenolol 50 mg tablet 50 mg PO 1000 06/27/2406/27 History Allergy/AdvReac Type Severity Reaction Status Date / Time finasteride AdvReac Mild PT UNSURE Verified 06/28/24 07:12 OF REACTION Family History Mother Asthma Arthritis Breast cancer Thyroid disorder Cancer pancreatic Brother Asthma Arthritis Hypertension Sister Asthma Arthritis Breast cancer Thyroid disorder Hypertension Grandmother Arthritis Grandfather Arthritis Daughter Thyroid disorder Father Cancer lung Surgical History Hx of right cataract extraction Hx of left cataract extraction History of esophagogastroduodenoscopy (EGD) H/O colonoscopy H/O arthroscopic knee surgery History of surgical procedure H/O prostatectomy Social History household members: family current occupational status: employed 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 06/28/24 0729 MD> Date _ Chago Spear MD Cosigner Signature: Date CC: ~ Signed [facility]04-21-2025 Evaluation note* Diagnosis Onset Date Resolution Status Admit Date DEVEN (obstructive sleep apnea) noneac tive June 03, 2024 10:42am Chronic pain of left knee noneactive June 03, 2024 10:42am Seasonal allergies noneactive June 03, 2024 10:42am Essential hypertension noneactive Ap 2024 10:42am Prediabetes noneactive June 03, 10:42am Morbid obesity with body mas s index (BMI) of 45.0 to 49.9 in adult noneactive June 03, 2024 10:42am GERD (gastroesophageal reflu x disease) noneactive June 03, 2024 10:42am GERD (gastroesophageal reflu x disease) acute June 04, 2024 9:57am Personal history of colonic polyps acute June 04, 2024 9:57am GERD (gastroesophageal reflu x disease) acute June 28, 2024 6 :43am Personal history of colonic polyps acute June 28, 2024 6 :43am DEVEN (obstructive sleep apnea) noneac tive July 31, 2024 10:18am Chronic pain of left knee noneactive July 31, 2024 10:18am Seasonal allergies noneactive July 142024 10:18am Essential hypertension noneactive 2024 10:18am Prediabetes noneactive July 31 10:18am Morbid obesity with body mas s index (BMI) of 45.0 to 49.9 in adult noneactive July 31, 2024 10:18am GERD (gastroesophageal reflu x disease) noneactive July 31, 2024 10:18am [facility] Work Phone: 1(361) 678-547904-21-2025 Evaluation note* Diagnosis Onset Date Resolution Status Admit Date DEVEN (obstructive sleep apnea) noneac tive June 03, 2024 10:42am Chronic pain of left knee noneactive June 03, 2024 10:42am Seasonal allergies noneactive June 03, 2024 10:42am Essential hypertension noneactive 2024 10:42am Prediabetes noneactive June 03 10:42am Morbid obesity with body mas s index (BMI) of 45.0 to 49.9 in adult noneactive June 03, 2024 10:42am GERD (gastroesophageal reflu x disease) noneactive June 03, 2024 10:42am GERD (gastroesophageal reflu x disease) acute June 04, 2024 9:57am Personal history of colonic polyps acute June 04, 2024 9:57am GERD (gastroesophageal reflu x disease) acute June 28, 2024 6 :43am Personal history of colonic polyps acute June 28, 2024 6 :43am GERD (gastroesophageal reflu x disease) noneactive July 31, 2024 10:18am Morbid obesity acute July 31, 2024 10:18am High blood pressure chronic July 31, 2024 10:18am DEVEN (obstructive sleep apnea) noneac tive July 31, 2024 10:18am Chronic pain of left knee noneactive July 31, 2024 10:18am Seasonal allergies noneactive July 142024 10:18am Essential hypertension noneactive Ju 2024 10:18am Prediabetes noneactive July 31 10:18am Morbid obesity with body mas s index (BMI) of 45.0 to 49.9 in adult noneactive July 31, 2024 10:18am DEVEN (obstructive sleep apnea) noneac tive September 10, 2024 10:45am Chronic pain of left knee noneactive September 10, 2024 10:45am Seasonal allergies noneactive August 142024 10:45am Essential hypertension noneactive Ju 2024 10:45am Prediabetes noneactive September 10 10:45am Morbid obesity with body mas s index (BMI) of 45.0 to 49.9 in adult noneactive September 10, 2024 10:45am GERD (gastroesophageal reflu x disease) noneactive September 10, 2024 10:45am [facility] Work Phone: 1(859) 774-553603-31-2025 Discharge summary [facility] Physical Therapy [facility] [place] [address] / REHABILITATION SERVICES DISCHARGE SUMMARY MR#: [id number] Acct: [id number] Name: MARVA WAGNER Rep #: [id number] : 1960 63 From: Chago Velez DPT, OCS, CSCS Referring Dr.: Dr. Melchor Feldman MD Status : REG RCR Insurance: [facility] SELF PAY INSURANCE Discharge Summary D/C summary: It has been my pleasure to treat MARVA WAGNER referred by Dr. Melchor Feldman MD, with the diagnosis of L knee pain for a total of 9 visit(s). Discharge Date: 05/13/24 Please see the following information for a summary of their discharge status. Subjective Subjective: Pool strengthens him up but still pain behind the knee. Hurt bad behind both knees Monday adn could not make it in. Helps to be in the pool. Doing HEP 3x/week. Sees Josh in late May. Not sure but injections might be next step. Pt thinks he needs next step. Pain L knee: Pain Intensity (Out of 10): 7 B ankles: Pain Intensity (Out of 10): 7 R hip: Pain Intensity (Out of 10): Unrated Overall Improvement % Improvement: 10 Objective Objective/Function: 0-115 AROM B knees, tightness L end range flexion. Mod tightness HS B and quad B. No antalgia in gait today but slow and lumbering. Ovrall not much improvd adn appropriate for next step with doctor(injection vs MRI according to patient) Goals Goal 1:: Work without increased pain in knees Goal Progress: Goal Met Goal 2:: I appropriate HEP to limit future problems(pool vs land/gym) Goal Progress: home, not gym Goal 3:: Pain in knees and feet 2/10 at worst adn 70% better Goal Progress: Progressing Goal 4:: LEFS 55 Goal Progress: Not Progressing Goal 5:: steps without noticing pain in L kne Goal Progress: Not Progressing Plan Plan: d/c to HEP, may benefit from more gym ex once pain is addressed D/C Information Discharge Comments: Back to doctor for next medical step. d/c sentence: If there are questions or concerns regarding this patient's physical therapy, please feel free to call me at [phone]. Thank you for the referral of thispatient. Sincerely, Chago Velez DPT, OCS, CSCS Balance/Gait/Functional tests Balance/Special Test Scores Lower Extremity Functional Score: 29 Improvement % Improvement: 10 05/13/24 1220 CC: Dr. Vidhya Moreno MD; Dr. Melchor Feldman MD ~ EBG Signed [facility]03-31-2025 Discharge summary Author Chago Velez [facility] Note Date/Time May 13, 2024 12: 54pm [facility] [facility] [place] [address] / REHABILITATION SERVICES DISCHARGE SUMMARY MR#: [id number] Acct: [id number] Name: MARVA WAGNER Rep #: [id number] : 1960 63 From: Chago Velez DPT, OCS, CSCS Referring Dr.: Dr. Melchor Feldman MD Status : REG RCR Insurance: [employer] SELF PAY INSURANCE Discharge Summary D/C summary: It has been my pleasure to treat MARVA WAGNER referred by Dr. Melchor Feldman MD, with the diagnosis of L knee pain for a total of 9 visit(s). Discharge Date: 05/13/24 Please see the following information for a summary of their discharge status. Subjective Subjective: Pool strengthens him up but still pain behind the knee. Hurt bad behind both knees Monday adn could not make it in. Helps to be in the pool. Doing HEP 3x/week. Sees Josh in late May. Not sure but injections might be next step. Pt thinks he needs next step. Pain L knee: Pain Intensity (Out of 10): 7 B ankles: Pain Intensity (Out of 10): 7 R hip: Pain Intensity (Out of 10): Unrated Overall Improvement % Improvement: 10 Objective Objective/Function: 0-115 AROM B knees, tightness L end range flexion. Mod tightness HS B and quad B. No antalgia in gait today but slow and lumbering. Ovrall not much improvd adn appropriate for next step with doctor(injection vs MRI according to patient) Goals Goal 1:: Work without increased pain in knees Goal Progress: Goal Met Goal 2:: I appropriate HEP to limit future problems(pool vs land/gym) Goal Progress: home, not gym Goal 3:: Pain in knees and feet 2/10 at worst adn 70% better Goal Progress: Progressing Goal 4:: LEFS 55 Goal Progress: Not Progressing Goal 5:: steps without noticing pain in L kne Goal Progress: Not Progressing Plan Plan: d/c to HEP, may benefit from more gym ex once pain is addressed D/C Information Discharge Comments: Back to doctor for next medical step. d/c sentence: If there are questions or concerns regarding this patient's physical therapy, please feel free to call me at [phone]. Thank you for the referral of thispatient. Sincerely, Chago Velez DPT, OCS, CSCS Balance/Gait/Functional tests Balance/Special Test Scores Lower Extremity Functional Score: 29 Improvement % Improvement: 10 <Electronically signed by Chago Velez DPT, OCS, CSCS> 05/13/24 1220 CC: Dr. Vidhya Moreno MD; Dr. Melchor Feldman MD ~ EBG Signed [facility] Work Phone: 1(937) 251-166001-20-2025 Evaluation note* Diagnosis Onset Date Resolution Status Admit Date Chronic pain of left knee noneactive March 04, 2024 10:41am Screening for colon cancer noneactiv e March 04, 2024 10:41am Immunization due noneactive March 04, 2024 10:41am Tinea cruris noneactive February 10:41am Establishing care with new doctor, encounter for noneactive March 042024 10:41am Seasonal allergies noneactive 2024 10:41am Suspected sleep apnea noneactive Feb 10:41am Essential hypertension noneactive 2024 10:41am Excessive sweating noneactive 2024 10:41am GERD (gastroesophageal reflu x disease) noneactive March 04 10:41am [facility] Work Phone: 1(422) 941-437801-20-2025 Evaluation note* Diagnosis Onset Date Resolution Status Admit Date Chronic pain of left knee noneactive March 04, 2024 10:41am Screening for colon cancer noneactiv e March 04, 2024 10:41am Immunization due noneactive March 04, 2024 10:41am Tinea cruris noneactive February 10:41am Establishing care with new doctor, encounter for noneactive March 042024 10:41am Seasonal allergies noneactive 2024 10:41am Suspected sleep apnea noneactive Feb 10:41am Essential hypertension noneactive 2024 10:41am Excessive sweating noneactive 2024 10:41am GERD (gastroesophageal reflu x disease) noneactive March 04 10:41am DEVEN (obstructive sleep apnea) noneac tive June 03, 2024 10:42am Chronic pain of left knee noneactive June 03, 2024 10:42am Seasonal allergies noneactive June 03, 2024 10:42am Essential hypertension noneactive 2024 10:42am Prediabetes noneactive Sada 21st, 2 025 10:42am Morbid obesity with body mas s index (BMI) of 45.0 to 49.9 in adult noneactive June 03, 2024 10:42am GERD (gastroesophageal reflu x disease) noneactive June 03, 2024 10:42am GERD (gastroesophageal reflu x disease) acute June 04, 2024 9:57am Personal history of colonic polyps acute June 04, 2024 9:57am GERD (gastroesophageal reflu x disease) acute June 28, 2024 6 :43am Personal history of colonic polyps acute June 28, 2024 6 :43am [facility] Work Phone: 1(718) 240-150502-28-2024 Miscellaneous Notes* Discharge Instr - Nursing - Brandee Voss RN - 04/12/2023 10:24 AM EST The patient received a copy of EGD discharge instructions that contain information for how to contact the physician who performed the procedure and when to seek medical care. [facility] Nurse Note* Brandee Voss RN - 04/12/2023 9:56 AM EST Arrived in phase II via cart. Left lateral position. Sedated, but responds to verbal stimuli. Colornormal; skin warm and dry. Respirations wnl and unlabored. Abdomen soft and with + bowel sounds in quads X 4. Patient resting comfortably. Family at bedside. Dr. Gray at bedside to review procedure and recommendations. Brandee Voss RN documented [facility]Hol[facility]02[facility] History and physical note * Gume Gray MD - 04/12/2023 9:45 AM EST Images from the original note were not included. HISTORY AND PHYSICAL Marva Wagner 1960 REFERRING PHYSICIAN: Laura Gomez MD CHIEF COMPLAINT: Consult (Dyspepsia/ EGD consult) HPI: The patient is a 62 year old male referred for endoscopy. Marva notes no history of colon complaints. The patient notes the following upper complaints: Marva denies abdominal pain.. Marva notes heartburn. Marva notes dysphagia. Marva denies a history of ulcers/ peptic ulcer disease. Marva has undergone prior endoscopy. egd 2104 The patient is being seen by me today at the request of Dr. Laura Gomez MD for my opinionand advice regarding Gastroesophageal reflux disease, unspecified whether esophagitis present (primary encounter diagnosis). PAST MEDICAL HISTORY PAST MEDICAL HISTORY Diagnosis Date Acute gastritis without mention of hemorrhage Anal or rectal pain Benign neoplasm of colon Diaphragmatic hernia without mention of obstruction or gangrene Elevated PSA Esophagitis, unspecified Essential hypertension, benign External hemorrhoids without mention of complication GERD (gastroesophageal reflux disease) Hemorrhage of rectum and anus Internal hemorrhoids without mention of complication Other chronic sinusitis Personal history of colonic polyps Pure hypercholesterolemia Snoring Unspecified disorder of prostate enlarged Urinary retention PAST SURGICAL HISTORY PAST SURGICAL HISTORY Procedure Laterality Date CATARACT EXTRACTION HX 04/02/13, 05/14/13 COLONOSCOPY FLX DX W/COLLJ SPEC WHEN PFRMD 05/12/2014 COLSC FLX W/RMVL OF TUMOR POLYP LESION SNARE TQ 03/04/2008 EGD TRANSORAL BIOPSY SINGLE/MULTIPLE 05/12/2014 PAST SURGICAL HISTORY OF 02/13/2006 left knee exploration and cleaning REMOVAL OF PROSTATE 12/[address] Tracy REPAIR OF HYDROCELE 04/2015 SKIN EXCISION removal of lipoma by Dr. Gray CURRENT MEDICATIONS Current Outpatient Medications Medication Sig Albuterol Sulfate 0.63 mg/3 mL nebulizer solution Use 1 Ampule via nebulizer every 6 hours as needed for wheezing/shortness of breath. Cetirizine (ZYRTEC) 10 mg cap Take 10 mg by mouth once daily as needed. omeprazole (PRILOSEC) 10 mg capsule Take 40 mg by mouth once daily. MULTI-VITAMIN ORAL Take by mouth. tamsulosin (FLOMAX) 0.4 mg ORAL Cp24 Take 2 capsules by mouth daily at bedtime. etodolac 400 mg ORAL tablet Take 1 tablet by mouth once daily as needed. ATENOLOL 25 MG TAB Take one(1) tablet daily. oxyCODONE-acetaminophen (PERCOCET) 5-325 mg tablet 1 to 2 po q 4 hours prn esomeprazole mag trihydrate(NEXIUM 40 MG CAP) Take one(1) to two(2) capsule daily. (Patient not taking: Reported on 03/30/2023) No current facility-administered medications for this visit. ALLERGIES: Finasteride PERSONAL HISTORY: SOCIAL HISTORY Social History Tobacco Use Smoking status: Never Smokeless tobacco: Never Vaping Use Vaping Use: Never used Substance Use Topics Alcohol use: No Drug use: No FAMILY HISTORY: FAMILY HISTORY FAMILY HISTORY Problem Relation Age of Onset Breast Cancer Mother Cancer Father lung Cancer Sister thyroid Cancer Mother pancreatic Thyroid Mother Thyroid Daughter Hypertension Mother Hypertension Sister Hypertension Brother REVIEW OF SYMPTOMS: The review of systems data was entered by the nurse and reviewed by me Nursing Notes: Summer Osborne LPN 03/30/2023 10:21 AM Signed REVIEW OF SYSTEMS: General: The patient denies fatigue, denies weight loss, denies weight gain, denies feeling hot, and denies feelings of cold. Eyes: The patient denies glaucoma, denies eye injury/surgery, does not wear glasses or contacts. Ear/Nose/Throat: The patient NOTES allergies, denies hayfever, denies ear infections, and denies bloody noses. Cardiovascular: The patient denies chest pain, NOTES heart disease, NOTES high blood pressure,denies cardiac stent, denies prior heart attack, denies irregular heart beat, denies high cholesterol, denies poor circulation, denies heart failure, other cardiac issues, denies claudication, denies cold feet, denies peripheral arterial stent. Respiratory: The patient denies tuberculosis, denies pneumonia, denies frequent cough, denies pulmonary embolism, denies shortness of breath, and denies coughing up blood. Gastrointestinal: The patient denies difficulty swallowing, denies acid reflux, denies ulcers, denies vomiting, denies jaundice/hepatitis, denies gallbladder problems, NOTES black or tarry stools, NOTES hemorrhoids, NOTES bleeding from rectum, denies diverticulitis, denies constipation, denies diarrhea, denies loss of stool control, and denies hernias. Kidney/Bladder: The patient denies kidney stones, NOTES urine infections, and denies bloody urine. Skin: The patient denies a history of skin cancer, denies bleeding/changing moles, and denies a history of skin rash. Neurologic: The patient denies a history of epilepsy/convulsions, denies headaches, denies head/spinal injuries, and denies stroke/TIA. Psychiatric: The patient denies psychiatric medications, denies depression, and denies voices, denies substance abuse. Endocrine: The patient denies thyroid disorders, denies diabetes, and denies hormonal problems. Hematologic: The patient denies a history of bruising, denies bleeding, and denies anemia, denies blood clots. Infections: The patient denies a history of measles and mumps, denies rheumatic fever, and denies sexually transmitted diseases. Musculoskeletal: The patient denies back pain/injury, denies back problems, denies sciatica, deniesknee/foot trouble, denies arthritis, or denies gout. When was patient's last Mammogram screening? 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 The patient is oriented to time, place, and person. VITALS: Blood pressure 136/88, pulse 78, temperature 36.6 C (97.9 F), height 185.4 cm (6' 1), weight (!) 150.9 kg (332 lb 9.6 oz), SpO2 99%. Body mass index is 43.88 kg/m . HEENT: Normal cephalic, ataumatic, pupils are equally round, sclera are anicteric, mucous membranesare moist, oropharynx is clear. Neck has no masses, asymmetry or lymphadenopathy. Thyroid is unremarkable. Respiratory: Clear to auscultation and percussion. Normal respiratory excursion and pattern. Cardiac: Examination is regular rate and rhythm. Abdominal exam: Soft, nontender, with no palpable masses. No hepatosplenomegaly. No palpable hernias. Rectal exam: exam deferred Extremities: no clubbing, cyanosis or edema. No adenopathy. Other: LABORATORY VALUES: As Noted RADIOLOGIC STUDIES: As Noted Assessment IMPRESSION: Gastroesophageal reflux disease, unspecified whether esophagitis present (primary encounter diagnosis) PLAN: I plan to perform upper endoscopy. We discussed the risks and benefits of the planned endoscopy. I have informed the patient that complications can occur including failure to complete the endoscopy and perforation. The patient had the opportunity to ask questions concerning the planned endoscopy. My staff has also explained the procedure to the patient in understandable terms and has given the patient printed material concerning the procedure. The patient freely consents to surgery. Diagnoses: (K21.9) Gastroesophageal reflux disease, unspecified whether esophagitis present (primary encounter diagnosis) A letter was sent to Dr. Laura Gomez MD indicating the above finding for this patient. Return to Clinic: The patient is instructed to follow-up with me 1 week post operatively. Gume Gray III, MD UPDATED HISTORY AND PHYSICAL EXAMINATION SERVICE DATE: 04/12/2023 SERVICE TIME: 9:36 AM PHYSICAL EXAM MUST BE COMPLETED ON ADMISSION The History and Physical (completed in the past 30 days) has been reviewed and the patient has beenexamined. The contents accurately reflect the patient's condition with the following additions or revisions since the H&P was completed. Examination indicates no changes. This H&P can be found in the attached. SIGNATURE: Gume Gray III, MD PATIENT NAME: Marva Wagner DATE: April 12, 2023 TIME: 9:36 AM documented [facility]Hol[facility] Telephone encounter Note * Telephone Encounter - Tiffany Kwok - 03/30/2023 10:51 AM EST 04/12/2023 [facility]GD [facility] Miscellaneous Notes* Telephone Encounter - Tiffany Kwok - 03/30/2023 10:51 AM EST 04/12/2023 EGD [facility] documented [facility]Hol[facility] Nurse Note* Summer Osborne LPN - 03/30/2023 10:19 AM EST REVIEW OF SYSTEMS: General: The patient denies fatigue, denies weight loss, denies weight gain, denies feeling hot, and denies feelings of cold. Eyes: The patient denies glaucoma, denies eye injury/surgery, does not wear glasses or contacts. Ear/Nose/Throat: The patient NOTES allergies, denies hayfever, denies ear infections, and denies bloody noses. Cardiovascular: The patient denies chest pain, NOTES heart disease, NOTES high blood pressure,denies cardiac stent, denies prior heart attack, denies irregular heart beat, denies high cholesterol, denies poor circulation, denies heart failure, other cardiac issues, denies claudication, denies cold feet, denies peripheral arterial stent. Respiratory: The patient denies tuberculosis, denies pneumonia, denies frequent cough, denies pulmonary embolism, denies shortness of breath, and denies coughing up blood. Gastrointestinal: The patient denies difficulty swallowing, denies acid reflux, denies ulcers, denies vomiting, denies jaundice/hepatitis, denies gallbladder problems, NOTES black or tarry stools, NOTES hemorrhoids, NOTES bleeding from rectum, denies diverticulitis, denies constipation, denies diarrhea, denies loss of stool control, and denies hernias. Kidney/Bladder: The patient denies kidney stones, NOTES urine infections, and denies bloody urine. Skin: The patient denies a history of skin cancer, denies bleeding/changing moles, and denies a history of skin rash. Neurologic: The patient denies a history of epilepsy/convulsions, denies headaches, denies head/spinal injuries, and denies stroke/TIA. Psychiatric: The patient denies psychiatric medications, denies depression, and denies voices, denies substance abuse. Endocrine: The patient denies thyroid disorders, denies diabetes, and denies hormonal problems. Hematologic: The patient denies a history of bruising, denies bleeding, and denies anemia, denies blood clots. Infections: The patient denies a history of measles and mumps, denies rheumatic fever, and denies sexually transmitted diseases. Musculoskeletal: The patient denies back pain/injury, denies back problems, denies sciatica, deniesknee/foot trouble, denies arthritis, or denies gout. When was patient's last Mammogram screening? N/A Last Colonoscopy: 2014 Summer Osborne LPN [facility] NoteHNO ID: [id number] Author: GUME GRAY MD Service: ? Author Type: Physician Type: Progress Notes Filed: 03/30/2023 10:41 Note Text: HISTORY AND PHYSICAL Marva Wagner 1960 REFERRING PHYSICIAN: Laura Gomez MD CHIEF COMPLAINT: Consult (Dyspepsia/ EGD consult) HPI: The patient is a 62 year old male referred for endoscopy. Marva notes no history of colon complaints. The patient notes the following upper complaints: Marva denies abdominal pain.. Marva notes heartburn. Marva notes dysphagia. Marva denies a history of ulcers/ peptic ulcer disease. Marva has undergone prior endoscopy. egd 2104 The patient is being seen by me today at the request of Dr. Laura Gomez MD for my opinion and advice regarding Gastroesophageal reflux disease, unspecified whether esophagitis present (primary encounter diagnosis). PAST MEDICAL HISTORY Diagnosis Date Acute gastritis without mention of hemorrhage Anal or rectal pain Benign neoplasm of colon Diaphragmatic hernia without mention of obstruction or gangrene Elevated PSA Esophagitis, unspecified Essential hypertension, benign External hemorrhoids without mention of complication GERD (gastroesophageal reflux disease) Hemorrhage of rectum and anus Internal hemorrhoids without mention of complication Other chronic sinusitis Personal history of colonic polyps Pure hypercholesterolemia Snoring Unspecified disorder of prostate enlarged Urinary retention PAST SURGICAL HISTORY Procedure Laterality Date CATARACT EXTRACTION HX 04/02/13, 05/14/13 COLONOSCOPY FLX DX W/COLLJ SPEC WHEN PFRMD 05/12/2014 COLSC FLX W/RMVL OF TUMOR POLYP LESION SNARE TQ 03/04/2008 EGD TRANSORAL BIOPSY SINGLE/MULTIPLE 05/12/2014 PAST SURGICAL HISTORY OF 02/13/2006 left knee exploration and cleaning REMOVAL OF PROSTATE 12/[address] Tracy REPAIR OF HYDROCELE 04/2015 SKIN EXCISION removal of lipoma by Dr. Gray Current Outpatient Medications Medication Sig Albuterol Sulfate 0.63 mg/3 mL nebulizer solution Use 1 Ampule via nebulizer every 6 hours as needed for wheezing/shortness of breath. Cetirizine (ZYRTEC) 10 mg cap Take 10 mg by mouth once daily as needed. omeprazole (PRILOSEC) 10 mg capsule Take 40 mg by mouth once daily. MULTI-VITAMIN ORAL Take by mouth. tamsulosin (FLOMAX) 0.4 mg ORAL Cp24 Take 2 capsules by mouth daily at bedtime. etodolac 400 mg ORAL tablet Take 1 tablet by mouth once daily as needed. ATENOLOL 25 MG TAB Take one(1) tablet daily. oxyCODONE-acetaminophen (PERCOCET) 5-325 mg tablet 1 to 2 po q 4 hours prn esomeprazole mag trihydrate(NEXIUM 40 MG CAP) Take one(1) to two(2) capsule daily. (Patient not taking: Reported on 03/30/2023) No current facility-administered medications for this visit. ALLERGIES: Finasteride PERSONAL HISTORY: Social History Tobacco Use Smoking status: Never Smokeless tobacco: Never Vaping Use Vaping Use: Never used Substance Use Topics Alcohol use: No Drug use: No FAMILY HISTORY: FAMILY HISTORY Problem Relation Age of Onset Breast Cancer Mother Cancer Father lung Cancer Sister thyroid Cancer Mother pancreatic Thyroid Mother Thyroid Daughter Hypertension Mother Hypertension Sister Hypertension Brother REVIEW OF SYMPTOMS: The review of systems data was entered by the nurse and reviewed by id Nursing Notes: Summer Osborne LPN 03/30/2023 10:21 AM Signed REVIEW OF SYSTEMS: General: The patient denies fatigue, denies weight loss, denies weight gain, denies feeling hot, and denies feelings of cold. Eyes: The patient denies glaucoma, denies eye injury/surgery, does not wear glasses or contacts. Ear/Nose/Throat: The patient NOTES allergies, denies hayfever, denies ear infections, and denies bloody noses. Cardiovascular: The patient denies chest pain, NOTES heart disease, NOTES high blood pressure,denies cardiac stent, denies prior heart attack, denies irregular heart beat, denies high cholesterol, denies poor circulation, denies heart failure, other cardiac issues, denies claudication, denies cold feet, denies peripheral arterial stent. Respiratory: The patient denies tuberculosis, denies pneumonia, denies frequent cough, denies pulmonary embolism, denies shortness of breath, and denies coughing up blood. Gastrointestinal: The patient denies difficulty swallowing, denies acid reflux, denies ulcers, denies vomiting, denies jaundice/hepatitis, denies gallbladder problems, NOTES black or tarry stools, NOTES hemorrhoids, NOTES bleeding from rectum, denies diverticulitis, denies constipation, denies diarrhea, denies loss of stool control, and denies hernias. Kidney/Bladder: The patient denies kidney stones, NOTES urine infections, and denies bloody urine. Skin: The patient denies a history of skin cancer, denies bleeding/changing moles, and denies a history of skin rash. Neurologic: The patient denies a histor (more content not included)...[facility]02-15-2024 History of Present illness Narrative* Gume Gray MD - 03/30/2023 10:18 AM EST HISTORY AND PHYSICAL aMrva Skinner Kristy 1960 REFERRING PHYSICIAN: Laura Gomez MD CHIEF COMPLAINT: Consult (Dyspepsia/ EGD consult) HPI: The patient is a 62 year old male referred for endoscopy. Marva notes no history of colon complaints. The patient notes the following upper complaints: Marva denies abdominal pain.. Marva notes heartburn. Marva notes dysphagia. Marva denies a history of ulcers/ peptic ulcer disease. Marva has undergone prior endoscopy. egd 2104 The patient is being seen by me today at the request of Dr. Laura Gomez MD for my opinionand advice regarding Gastroesophageal reflux disease, unspecified whether esophagitis present (primary encounter diagnosis). PAST MEDICAL HISTORY Diagnosis Date Acute gastritis without mention of hemorrhage Anal or rectal pain Benign neoplasm of colon Diaphragmatic hernia without mention of obstruction or gangrene Elevated PSA Esophagitis, unspecified Essential hypertension, benign External hemorrhoids without mention of complication GERD (gastroesophageal reflux disease) Hemorrhage of rectum and anus Internal hemorrhoids without mention of complication Other chronic sinusitis Personal history of colonic polyps Pure hypercholesterolemia Snoring Unspecified disorder of prostate enlarged Urinary retention PAST SURGICAL HISTORY Procedure Laterality Date CATARACT EXTRACTION HX 04/02/13, 05/14/13 COLONOSCOPY FLX DX W/COLLJ SPEC WHEN PFRMD 05/12/2014 COLSC FLX W/RMVL OF TUMOR POLYP LESION SNARE TQ 03/04/2008 EGD TRANSORAL BIOPSY SINGLE/MULTIPLE 05/12/2014 PAST SURGICAL HISTORY OF 02/13/2006 left knee exploration and cleaning REMOVAL OF PROSTATE 12/[address] Tracy REPAIR OF HYDROCELE 04/2015 SKIN EXCISION removal of lipoma by Dr. Gray Current Outpatient Medications Medication Sig Albuterol Sulfate 0.63 mg/3 mL nebulizer solution Use 1 Ampule via nebulizer every 6 hours as needed for wheezing/shortness of breath. Cetirizine (ZYRTEC) 10 mg cap Take 10 mg by mouth once daily as needed. omeprazole (PRILOSEC) 10 mg capsule Take 40 mg by mouth once daily. MULTI-VITAMIN ORAL Take by mouth. tamsulosin (FLOMAX) 0.4 mg ORAL Cp24 Take 2 capsules by mouth daily at bedtime. etodolac 400 mg ORAL tablet Take 1 tablet by mouth once daily as needed. ATENOLOL 25 MG TAB Take one(1) tablet daily. oxyCODONE-acetaminophen (PERCOCET) 5-325 mg tablet 1 to 2 po q 4 hours prn esomeprazole mag trihydrate(NEXIUM 40 MG CAP) Take one(1) to two(2) capsule daily. (Patient not taking: Reported on 03/30/2023) No current facility-administered medications for this visit. ALLERGIES: Finasteride PERSONAL HISTORY: Social History Tobacco Use Smoking status: Never Smokeless tobacco: Never Vaping Use Vaping Use: Never used Substance Use Topics Alcohol use: No Drug use: No FAMILY HISTORY: FAMILY HISTORY Problem Relation Age of Onset Breast Cancer Mother Cancer Father lung Cancer Sister thyroid Cancer Mother pancreatic Thyroid Mother Thyroid Daughter Hypertension Mother Hypertension Sister Hypertension Brother REVIEW OF SYMPTOMS: The review of systems data was entered by the nurse and reviewed by id Nursing Notes: Summer Osborne LPN 03/30/2023 10:21 AM Signed REVIEW OF SYSTEMS: General: The patient denies fatigue, denies weight loss, denies weight gain, denies feeling hot, and denies feelings of cold. Eyes: The patient denies glaucoma, denies eye injury/surgery, does not wear glasses or contacts. Ear/Nose/Throat: The patient NOTES allergies, denies hayfever, denies ear infections, and denies bloody noses. Cardiovascular: The patient denies chest pain, NOTES heart disease, NOTES high blood pressure,denies cardiac stent, denies prior heart attack, denies irregular heart beat, denies high cholesterol, denies poor circulation, denies heart failure, other cardiac issues, denies claudication, denies cold feet, denies peripheral arterial stent. Respiratory: The patient denies tuberculosis, denies pneumonia, denies frequent cough, denies pulmonary embolism, denies shortness of breath, and denies coughing up blood. Gastrointestinal: The patient denies difficulty swallowing, denies acid reflux, denies ulcers, denies vomiting, denies jaundice/hepatitis, denies gallbladder problems, NOTES black or tarry stools, NOTES hemorrhoids, NOTES bleeding from rectum, denies diverticulitis, denies constipation, denies diarrhea, denies loss of stool control, and denies hernias. Kidney/Bladder: The patient denies kidney stones, NOTES urine infections, and denies bloody urine. Skin: The patient denies a history of skin cancer, denies bleeding/changing moles, and denies a history of skin rash. Neurologic: The patient denies a history of epilepsy/convulsions, denies headaches, denies head/spinal injuries, and denies stroke/TIA. Psychiatric: The patient denies psychiatric medications, denies depression, and denies voices, denies substance abuse. Endocrine: The patient denies thyroid disorders, denies diabetes, and denies hormonal problems. Hematologic: The patient denies a history of bruising, denies bleeding, and denies anemia, denies blood clots. Infections: The patient denies a history of measles and mumps, denies rheumatic fever, and denies sexually transmitted diseases. Musculoskeletal: The patient denies back pain/injury, denies back problems, denies sciatica, deniesknee/foot trouble, denies arthritis, or denies gout. When was patient's last Mammogram screening? 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 The patient is oriented to time, place, and person. VITALS: Blood pressure 136/88, pulse 78, temperature 36.6 C (97.9 F), height 185.4 cm (6' 1), weight (!) 150.9 kg (332 lb 9.6 oz), SpO2 99%. Body mass index is 43.88 kg/m . HEENT: Normal cephalic, ataumatic, pupils are equally round, sclera are anicteric, mucous membranesare moist, oropharynx is clear. Neck has no masses, asymmetry or lymphadenopathy. Thyroid is unremarkable. Respiratory: Clear to auscultation and percussion. Normal respiratory excursion and pattern. Cardiac: Examination is regular rate and rhythm. Abdominal exam: Soft, nontender, with no palpable masses. No hepatosplenomegaly. No palpable hernias. Rectal exam: exam deferred Extremities: no clubbing, cyanosis or edema. No adenopathy. Other: LABORATORY VALUES: As Noted RADIOLOGIC STUDIES: As Noted Assessment IMPRESSION: Gastroesophageal reflux disease, unspecified whether esophagitis present (primary encounter diagnosis) PLAN: I plan to perform upper endoscopy. We discussed the risks and benefits of the planned endoscopy. I have informed the patient that complications can occur including failure to complete the endoscopy and perforation. The patient had the opportunity to ask questions concerning the planned endoscopy. My staff has also explained the procedure to the patient in understandable terms and has given the patient printed material concerning the procedure. The patient freely consents to surgery. Diagnoses: (K21.9) Gastroesophageal reflux disease, unspecified whether esophagitis present (primary encounter diagnosis) A letter was sent to Dr. Laura Gomez MD indicating the above finding for this patient. Return to Clinic: The patient is instructed to follow-up with me 1 week post operatively. Gume Gray III, MD [facility] Author Tanner Dockery [facility] Note Date/Time June 28, 2024 9:37a [facility] Medical Records Department [address] [place] [address] Anesthesia Postop Eval I 06/28/24 0936 MR#: [id number] Acct: [id number] Name: MARVA WAGNER Susanne Rep #:[id number] : 1960 63 From: Tanner Dockery PCP: Dr. Vidhya Moreno MD Status:REG SDC Y Race: C Location: [place] [address] Anesthesia: Postop Eval I Current Vital Signs Temperature: 97 F Pulse Rate: 67 Blood Pressure: 104/74 Respiratory Rate: 16 Pulse Ox: 95 Oxygen Delivery Method: Room Air Assessment Airway patent: Yes Spontaneous unlabored respirations: Yes Mental status: Awake and Calm nausea: No Vomiting: No Anesthesia Complication: No Fluid Hydration Crystalloid volume administer (ml): 600 Total IV fluid infused: 600 Progress Note Anesthesia document: Postop Eval 1 completed: Yes 06/28/24936 <Electronically signed by Tanner Dockery > Date _ Tanner Goignvanessa Signature: Date CC: ~ Signed [facility] Work Phone: Consult note Author Chago Spear [facility] Note Date/Time June 28, 2024 9:39a [facility] Medical Records Department [address] [place] [address] Anesthesia Postop Eval II 06/28/2439 MR#: [id number] Acct: [id number] Name: MARVA WAGNER Susanne Rep #:[id number] : 1960 63 From: Chago Spear MD PCP: Dr. Vidhya Moreno MD Status:REG SDC Y Race: C Location: [place] [address] Anesthesia Postop Eval I Sum Postop Eval Completion status Anesthesia document: Postop Eval 1 completed: Yes Anesthesia Postop Eval I Summary Anesthesia Postop Eval I Summary: Anesthesia Postop Eval I: Assessment Summary Airway patent Yes 06/28/24 09:37 [email or web address] Spontaneous unlabored Yes 06/28/24 09:37 [email or web address] respirations Mental status Awake,Calm 06/28/24 09:37 [email or web address] nausea No 06/28/24 09:37 [email or web address] Vomiting No 06/28/24 09:37 [email or web address] Anesthesia Postop Eval I: Fluid Summary Crystalloid volume administer 600 06/28/24 09:37 [email or web address] (ml) Colloids volume administered ( ml) Blood Product volume administered (ml) Total IV fluid infused 600 06/28/24 09:37 [email or web address] Anesthesia Postop Eval I: Summary Notes Anesthesia Complication No 06/28/24 09:37 [email or web address] Anesthesia Complication Comment: Post-operative progress note Anesthesia: Postop Eval II Evaluation Mental status: Awake Pain Level: 0 nausea: No Vomiting: No 06/28/24 0939 <Electronically signed by Chago Spear MD> Date _ Chago Spear MD Cosigner Signature: Date CC: ~ Signed [facility] Work Phone: Evaluation noteNo assessment information available [facility] Work Phone: Evaluation note* Diagnosis Gastroesophageal reflux disease, unspecified whether esophagitis present- Primary [facility] Heartburn- Primary Gastroesophageal reflux disease, unspecified whether esophagitis present [facility] Author Oleg Yoon [facility] Note Date/Time June 28, 2024 8:46a m [facility] Medical Records Department [address] [place] [address] History & Physical Exam 06/28/24 0838 MR#: [id number] Acct: [id number] Name: MARVA WAGNER Rep #:[id number] : 1960 63 From: Oleg Yoon MD PCP: Dr. Vidhya Moreno MD Status:[facility] Location: [place] [address] HPI - General General Date of Service: 06/28/24 Chief Complaint: EGD and colonoscopy HPI Narrative The patient is a 63-year-old male who is being seen today to schedule at least acolonoscopy as his last colonoscopy was about 10 years ago. He did have colon polyps on a previous colonoscopy so he is certainly overdue for colonoscopy. Hehad an EGD couple of years ago which was unremarkable however he states that hisacid reflux symptoms seem to be worsening. As result his PCP is advising repeatEGD as well. Patient presents today to discuss the scopes and to get these scheduled. He denies any lower GI issues such as blood in his stools or black or tarry stools. He does have a family history of colon polyps as well. 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 Home Medications ?Medication ?Instructions ?Recorded ?Last Taken ?Type cetirizine 10 mg capsule (Zyrtec) 10 mg PO QDAY allerg y symptoms 03/04/24 06/27/24 History omeprazole 20 mg capsule,delayed 20 mg PO QDAY 5 06/20/24 History release tirzepatide (weight loss) 2.5 2.5 mg (0.5 mL) subcut Q WEEK #2 mL 06/03/24 06/16/24 Rx mg/0.5 mL subcutaneous pen injector (Zepbound) atenolol 50 mg tablet 50 mg PO 1000 06/27/2406/27 History Allergy/AdvReac Type Severity Reaction Status Date / Time finasteride AdvReac Mild PT UNSURE Verified 06/28/24 07:12 OF REACTION Family History Mother Asthma Arthritis Breast cancer Thyroid disorder Cancer pancreatic Brother Asthma Arthritis Hypertension Sister Asthma Arthritis Breast cancer Thyroid disorder Hypertension Grandmother Arthritis Grandfather Arthritis Daughter Thyroid disorder Father Cancer lung Surgical History Hx of right cataract extraction Hx of left cataract extraction History of esophagogastroduodenoscopy (EGD) H/O colonoscopy H/O arthroscopic knee surgery History of surgical procedure H/O prostatectomy Social History household members: family current occupational status: employed 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[employer]) Smoking Status: Never smoker second hand exposure: No alcohol intake: never substance use type: does not use caffeine: No eating out: rarely or never do you feel safe at home: Yes Vital Signs Vital Signs Vital Signs: 06/28/24 07:14 06/28/24 07:14 06/28/24 07:29 Temperature 97.3 F L 97.3 F L Temperature Source Temporal Pulse Rate 61 61 Respiratory Rate 16 16 Respiratory Pattern Normal Blood Pressure 140/87 H 140/87 H Blood Pressure Mean 104 Blood Pressure Source Monitor Blood Pressure Position Semi-Fowlers Blood Pressure Location Right Arm Pulse Ox 99 99 Oxygen Delivery Method Room Air Weight Weight: 346 lb 2.012 oz Body Mass Index (BMI) 45.6 Physical Exam Const alert, oriented x3 and no apparent distress Assessment & Plan Assessment/Plan (1) Personal history of colonic polyps: (2) GERD (gastroesophageal reflux disease): PLAN: Plan EGD and colonoscopy planned for today. 06/28/24 0846 <Electronically signed by Oleg Yoon MD> Cosigner Signature (if applicable): CC: Dr. Vidhya Moreno MD; Dr. Oleg Yoon MD~ Signed [facility] Work Phone: History and physical note Author [facility]leg [facility] Note Date/Time June 28, 2024 8:41a [facility] Medical Records Department [address] [place] [address] History & Physical Exam 06/28/24 0841 MR#: [id number] Acct: [id number] Name: MARVA WAGNER Rep #:[id number] : 1960 63 From: Oleg Yoon MD PCP: Dr. Vidhya Moreno MD Status:REG [facility] [place] Location: [place] [address] HPI - General General Date of Admission: 06/28/24 Chief Complaint: EGD and colonoscopy HPI Narrative MARVA WAGNER, is a 63 M who presents 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 Home Medications ?Medication ?Instructions ?Recorded ?Last Taken ?Type cetirizine 10 mg capsule (Zyrtec) 10 mg PO QDAY allerg y symptoms 03/04/24 06/27/24 History omeprazole 20 mg capsule,delayed 20 mg PO QDAY 5 06/20/24 History release tirzepatide (weight loss) 2.5 2.5 mg (0.5 mL) subcut Q WEEK #2 mL 06/03/24 06/16/24 Rx mg/0.5 mL subcutaneous pen injector (Zepbound) atenolol 50 mg tablet 50 mg PO 1000 06/27/2406/27 History Allergy/AdvReac Type Severity Reaction Status Date / Time finasteride AdvReac Mild PT UNSURE Verified 06/28/24 07:12 OF REACTION Family History Mother Asthma Arthritis Breast cancer Thyroid disorder Cancer pancreatic Brother Asthma Arthritis Hypertension Sister Asthma Arthritis Breast cancer Thyroid disorder Hypertension Grandmother Arthritis Grandfather Arthritis Daughter Thyroid disorder Father Cancer lung Surgical History Hx of right cataract extraction Hx of left cataract extraction History of esophagogastroduodenoscopy (EGD) H/O colonoscopy H/O arthroscopic knee surgery History of surgical procedure H/O prostatectomy Social History household members: family current occupational status: employed 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[employer]) Smoking Status: Never smoker second hand exposure: No alcohol intake: never substance use type: does not use caffeine: No eating out: rarely or never do you feel safe at home: Yes Vital Signs Vital Signs Vital Signs: 06/28/24 07:14 06/28/24 07:14 06/28/24 07:29 Temperature 97.3 F L 97.3 F L Temperature Source Temporal Pulse Rate 61 61 Respiratory Rate 16 16 Respiratory Pattern Normal Blood Pressure 140/87 H 140/87 H Blood Pressure Mean 104 Blood Pressure Source Monitor Blood Pressure Position Semi-Fowlers Blood Pressure Location Right Arm Pulse Ox 99 99 Oxygen Delivery Method Room Air Weight Weight: 346 lb 2.012 oz Body Mass Index (BMI) 45.6 06/28/24 0841 <Electronically signed by Oleg Yoon MD> Cosigner Signature (if applicable): CC: Dr. Vidhya Moreno MD; Dr. Oleg Yoon MD~ Signed [facility] Work Phone: Reason for referral (narrative)* Outpatient Procedure (Routine) - Authorized Specialty Diagnoses / Procedures Referred By Linda tadeo Referred To [facility] [place] Diagnoses Gastroesophageal reflux disease, unspecified whether esophagitis present Procedures EGD DIAGNOSTIC ESOPHAGOGASTRODUODENOSC OPY TRANSORAL DIAGNOSTIC Gume Gray MD [address] [place] [address] [address] Referral ID Status Reason Start Date Expiration Date Visits Requested Visits Authorized [id number] Authorized Auto-Generat ed Referral 03/30/2023 02/13/2024 1 1 [facility] for referral (narrative)* Outpatient Procedure (Routine) - Closed Specialty Diagnoses / Procedures Referred By Linda tadeo Referred To [facility] Diagnoses Gastroesophageal reflux disease, unspecified whether esophagitis present Procedures EGD DIAGNOSTIC ESOPHAGOGASTRODUODENOSC OPY TRANSORAL DIAGNOSTIC Gume Gray MD [address] [place] [address] [address] Referral ID Status Reason Start Date Expiration Date V isits Requested Visits Authorized [id number] Closed Auto-Generate d Referral 03/30/2023 02/13/2024 1 [facility]No reason for referral information [facility] Work Phone: Reason for visit Narrative* Outpatient Procedure (Routine) - Closed Specialty Diagnoses / Procedures Referred By Contac t Referred To [facility] Diagnoses Gastroesophageal reflux disease, unspecified whether esophagitis present Procedures EGD DIAGNOSTIC ESOPHAGOGASTRODUODENOSC OPY TRANSORAL DIAGNOSTIC Gume Gray MD [address] [place] [address] [facility] [address] [place] [address] Referral ID Status Reason Start Date Expiration Date V isits Requested Visits Authorized [id number] Closed Auto-Generate d Referral 03/30/2023 02/13/2024 1 1 [facility] Advance Directives No Advanced Directives Records Found Advance Directive Response Recorded Date/ Time Advance Directives Yes April 23, 2 016 4:05pm Living Will Yes December 24, 2 020 2:45pm Power of Head Of Mobile Yes December 25, 2019 2:45pm Advance Directive Response Recorded Date/ Time Advance Directives Yes April 23, 2 016 4:05pm Advance Directive Response Recorded Date/ Time Do you have a Healthcare Power of Head Of Mobile? Yes June 27, 2024 9:51am Advance Directives Yes April 23, 2 016 4:05pm Summary Purpose Family History No Family History Records Found Relationship Condition Age at Onset Recorded Date/T alin mother Asthma Unknown Arthritis Unknown Malignant neoplasm of breast Unknown Disorder of thyroid Unknown Malignant neoplasm Unknown brother Asthma Unknown Hypertension Unknown sister Asthma Unknown grandmother Arthritis Unknown grandfather Arthritis Unknown daughter Disorder of thyroid Unknown father Malignant neoplasm Unknown Chief Complaint and Reason for Visit Chief Complaint Admit Date EST NEW PT- [facility]WK SENT March 04, 2024 10:41am L KNEE RX HERE May 13, 2024 12: 00pm Reason for Visit Admit Date Chronic pain of left knee March 04, 2024 10:41am Screening for colon cancer March 04, 2024 10:41am Immunization due March 04, 2024 1 0:41am Tinea cruris March 04, 2024 1 0:41am Establishing care with new doctorcan for March 04, 2024 10:41am Seasonal allergies March 04, 2024 1 0:41am Suspected sleep apnea March 04, 2024 10:41am Essential hypertension March 04 10:41am Excessive sweating March 04, 2024 1 0:41am GERD (gastroesophageal reflux disease) J anuary 2024 10:41am Chief Complaint Admit Date EST NEW PT- PPWK SENT March 04, 2024 10:41am L KNEE RX HERE May 13, 2024 12: 00pm MED DISCUSSION June 03, 2024 10: 42am COLONOSCOPY, EGD June 04, 2024 9:5 7am Reason for Visit Admit Date Chronic pain of left knee March 04, 2024 10:41am Screening for colon cancer March 04, 2024 10:41am Immunization due March 04, 2024 1 0:41am Tinea cruris March 04, 2024 1 0:41am Establishing care with new doctor, can brantley for March 04, 2024 10:41am Seasonal allergies March 04, 2024 1 0:41am Suspected sleep apnea March 04, 2024 10:41am Essential hypertension March 04 10:41am Excessive sweating March 04, 2024 1 0:41am GERD (gastroesophageal reflux disease) J anuary 2024 10:41am DEVEN (obstructive sleep apnea) May 10:42am Chronic pain of left knee June 03 10:42am Seasonal allergies June 03, 2024 10: 42am Essential hypertension June 03, 2024 10:42am Prediabetes June 03, 2024 10: 42am Morbid obesity with body mas s index (BMI) of 45.0 to 49.9 in adult June 03, 2024 10:42am GERD (gastroesophageal reflux disease) A pril 2024 10:42am GERD (gastroesophageal reflux disease) A pril 2024 9:57am Personal history of colonic polyps June 04, 2024 9:57am GERD (gastroesophageal reflux disease) M ay 2024 6:43am Personal history of colonic polyps June 132024 6:43am Chief Complaint Admit Date L KNEE RX HERE May 13, 2024 12: 00pm MED DISCUSSION June 03, 2024 10: 42am COLONOSCOPY, EGD June 04, 2024 9:5 7am 1 m fu July 31, 2024 10:1 8am Reason for Visit Admit Date DEVEN (obstructive sleep apnea) May 10:42am Chronic pain of left knee June 03 10:42am Seasonal allergies June 03, 2024 10: 42am Essential hypertension June 03, 2024 10:42am Prediabetes June 03, 2024 10: 42am Morbid obesity with body mas s index (BMI) of 45.0 to 49.9 in adult June 03, 2024 10:42am GERD (gastroesophageal reflux disease) A pri2024 10:42am GERD (gastroesophageal reflux disease) A pril 2024 9:57am Personal history of colonic polyps June 04, 2024 9:57am GERD (gastroesophageal reflux disease) M 2024 6:43am Personal history of colonic polyps June 132024 6:43am DEVEN (obstructive sleep apnea) July 31, 2024 10:18am Chronic pain of left knee July 31 10:18am Seasonal allergies July 31, 2024 10:1 8am Essential hypertension July 31, 2024 1 0:18am Prediabetes July 31, 2024 10:1 8am Morbid obesity with body mas s index (BMI) of 45.0 to 49.9 in adult July 31, 2024 10:18am GERD (gastroesophageal reflux disease) [facility] 10:18am Chief Complaint Admit Date L KNEE RX HERE May 13, 2024 12: 00pm MED DISCUSSION June 03, 2024 10: 42am COLONOSCOPY, EGD June 04, 2024 9:5 7am 1 m fu July 31, 2024 10:1 8am 6 wk FU September 10, 2024 10:4 5am Reason for Visit Admit Date DEVEN (obstructive sleep apnea) May 10:42am Chronic pain of left knee June 03 10:42am Seasonal allergies June 03, 2024 10: 42am Essential hypertension June 03, 2024 10:42am Prediabetes June 03, 2024 10: 42am Morbid obesity with body mas s index (BMI) of 45.0 to 49.9 in adult June 03, 2024 10:42am GERD (gastroesophageal reflux disease) A pri2024 10:42am GERD (gastroesophageal reflux disease) A pril 2024 9:57am Personal history of colonic polyps June 04, 2024 9:57am GERD (gastroesophageal reflux disease) M ay 2024 6:43am Personal history of colonic polyps June 132024 6:43am GERD (gastroesophageal reflux disease) J une 2024 10:18am Morbid obesity July 31, 2024 10:1 8am High blood pressure July 31, 2024 10:1 8am DEVEN (obstructive sleep apnea) July 31, 2024 10:18am Chronic pain of left knee July 31 10:18am Seasonal allergies July 31, 2024 10:1 8am Essential hypertension July 31, 2024 1 0:18am Prediabetes July 31, 2024 10:1 8am Morbid obesity with body mas s index (BMI) of 45.0 to 49.9 in adult July 31, 2024 10:18am DEVNE (obstructive sleep apnea) September 10, 2024 10:45am Chronic pain of left knee September 10 10:45am Seasonal allergies September 10, 2024 10:4 5am Essential hypertension September 10, 2024 1 0:45am Prediabetes September 10, 2024 10:4 5am Morbid obesity with body mas s index (BMI) of 45.0 to 49.9 in adult September 10, 2024 10:45am GERD (gastroesophageal reflux disease) J gerber 2024 10:45am Additional Source Comments Goals (unrecognized section and content) Goals may be documented in a n alternate sectionGoals may be documented in an alternate sectionGoals may be documented in an alternate section Care Teams (unrecognized sec tion and content) Team Status: Active Member Role Status Dates Dr. Jed Gomez MD Family Provider Active Dr. Jed Gomez MD Primary Care Provider Activ e Team Status: Inactive Member Role Status Dates Dr. Jed Gomez MD Primary Care Provider, Attgetachew perezing Provider Active Costumed Character Relationship Specialty Start Date End Date Laura Gomez MD [address] [place] [id number] PCP - General Family Medicine 01/09/23 Costumed Character Relationship Specialty Start Date End Date Laura Gomez MD [address] [place] [address] PCP - [facility] Medicine 01/09/23 Costumed Character Relationship Specialty Start Date End Date Laura Gomez MD [address] [place], [place] [id number] PCP - General [facility] Medicine 01/09/23 Team Status: Active Member Role Status Dates Dr. Vidhya Moreno MD Primary Care Provider Active Team Status: Inactive Member Role Status Dates Dr. Lauar Gomez MD Primary Care Provider Acti ve Start: March 04, 2024 End: March 04, 2024 Dr. Laura Gomez MD Referring Provider Active Start: March 04, 2024 End: March 04, 2024 Dr. Vidhya Moreno MD Attending Provider Active Start: March 04, 2024 End: March 04, 2024 Team Status: Inactive Member Role Status Dates Dr. Vidhya Moreno MD Primary Care Provider Active Start: March 04, 2024 End: March 04, 2024 Dr. Vidhya Moreno MD Attending Provider Active Start: March 04, 2024 End: March 04, 2024 Dr. Vidhya Moreno MD Referring Provider Active Start: March 04, 2024 End: March 04, 2024 Team Status: Inactive Member Role Status Dates Dr. Vidhya Moreno MD Primary Care Provider Active Start: March 08, 2024 End: March 08, 2024 Dr. Vidhya Moreno MD Attending Provider Active Start: March 08, 2024 End: March 08, 2024 Dr. Vidhya Moreno MD Referring Provider Active Start: March 08, 2024 End: March 08, 2024 Team Status: Inactive Member Role Status Dates Dr. Vidhya Moreno MD Primary Care Provider Active Start: May 13, 2024 End: May 13, 2024 Dr. Melchor Feldman MD Attending Provider Active Start: May 13, 2024 End: May 13, 2024 Dr. Melchor Feldman MD Referring Provider Active Start: May 13, 2024 End: May 13, 2024 Team Status: Inactive Member Role Status Dates Dr. Vidhya Moreno MD Primary Care Provider Active Start: June 03, 2024 End: June 03, 2024 Dr. Vidhya Moreno MD Attending Provider Active Start: June 03, 2024 End: June 03, 2024 Dr. Vidhya Moreno MD Referring Provider Active Start: June 03, 2024 End: June 03, 2024 Team Status: Inactive Member Role Status Dates Dr. Vidhya Moreno MD Primary Care Provider Active Start: June 04, 2024 End: June 04, 2024 Dr. Vidhya Moreno MD Referring Provider Active Start: June 04, 2024 End: June 04, 2024 Dr. Oleg Yoon MD Attending Provider Active Start: June 04, 2024 End: June 04, 2024 Team Status: Inactive Member Role Status Dates Dr. Vidhya Moreno MD Primary Care Provider Active Start: June 28, 2024 End: June 28, 2024 Dr. Vidhya Moreno MD Referring Provider Active Start: June 28, 2024 End: June 28, 2024 Dr. Oleg Yoon MD Attending Provider Active Start: June 28, 2024 End: June 28, 2024 Team Status: Active Member Role Status Dates Dr. Vidhya Moreno MD Primary Care Provider Active Start: June 28, 2024 Dr. Vidhya Moreno MD Referring Provider Active Start: June 28, 2024 Dr. Oleg Yoon MD Attending Provider Active Start: June 28, 2024 Dr. Oleg Yoon MD Other Provider Active St art: June 28, 2024 Team Status: Inactive Member Role Status Dates NATALIYA Harrington Attending Provider Active St art: July 31, 2024 End: July 31, 2024 Dr. Vidhya Moreno MD Primary Care Provider Active Start: July 31, 2024 End: July 31, 2024 Dr. Vidhya Moreno MD Referring Provider Active Start: July 31, 2024 End: July 31, 2024 Team Status: Active Member Role/Relationship Status Dates Dr. Vidhya Moreno MD Primary Care Provider Active Team Status: Inactive Member Role/Relationship Status Dates Dr. Vidhya Moreno MD Primary Care Provider Active Start: May 13, 2024 End: May 13, 2024 Dr. Melchor Feldman MD Attending Provider Active Start: May 13, 2024 End: May 13, 2024 Dr. Melchor Fledman MD Referring Provider Active Start: May 13, 2024 End: May 13, 2024 Team Status: Inactive Member Role/Relationship Status Dates Dr. Vidhya Moreno MD Primary Care Provider Active Start: June 03, 2024 End: June 03, 2024 Dr. Vidhya Moreno MD Attending Provider Active Start: June 03, 2024 End: June 03, 2024 Dr. Vidhya Moreno MD Referring Provider Active Start: June 03, 2024 End: June 03, 2024 Team Status: Inactive Member Role/Relationship Status Dates Dr. Vidhya Moreno MD Primary Care Provider Active Start: June 04, 2024 End: June 04, 2024 Dr. Vidhya Moreno MD Referring Provider Active Start: June 04, 2024 End: June 04, 2024 Dr. Oleg Yoon MD Attending Provider Active Start: June 04, 2024 End: June 04, 2024 Team Status: Inactive Member Role/Relationship Status Dates Dr. Vidhya Moreno MD Primary Care Provider Active Start: June 28, 2024 End: June 28, 2024 Dr. Vidhya Moreno MD Referring Provider Active Start: June 28, 2024 End: June 28, 2024 Dr. Oleg Yoon MD Attending Provider Active Start: June 28, 2024 End: June 28, 2024 Team Status: Active Member Role/Relationship Status Dates Dr. Vidhya Moreno MD Primary Care Provider Active Start: June 28, 2024 Dr. Vidhya Moreno MD Referring Provider Active Start: June 28, 2024 Dr. Oleg Yoon MD Attending Provider Active Start: June 28, 2024 Dr. Oleg Yoon MD Other Provider Active St art: June 28, 2024 Team Status: Inactive Member Role/Relationship Status Dates NATALIYA Harrington Attending Provider Active St art: July 31, 2024 End: July 31, 2024 Dr. Vidhya Moreno MD Primary Care Provider Active Start: July 31, 2024 End: July 31, 2024 Dr. Vidhya Moreno MD Referring Provider Active Start: July 31, 2024 End: July 31, 2024 Team Status: Inactive Member Role/Relationship Status Dates Dr. Vidhya Moreno MD Primary Care Provider Active Start: September 10, 2024 End: September 10, 2024 Dr. Vidhya Moreno MD Attending Provider Active Start: September 10, 2024 End: September 10, 2024 Dr. Vidhya Moreno MD Referring Provider Active Start: September 10, 2024 End: September 10, 2024 Source Comments (unrecognize d section and content) In the event this informatio n is protected by the Federal Confidentiality of Alcohol and Drug Abuse Patient Records regulations: The Federal rules restrict any use of the information to criminally investigate or prosecute any alcohol or drug abuse patient.[facility] the event this information is protected by the Federal Confidentiality of Alcohol and Drug Abuse Patient Records regulations: The Federal rules restrict any use of the information to criminally investigate or prosecute any alcohol or drug abuse patient.[facility] the event this information is protected by the Federal Confidentiality of Alcohol and Drug Abuse Patient Records regulations: The Federal rules restrict any use of the information to criminally investigate or prosecute any alcohol or drug abuse patient.[facility] Reason for Visit (unrecogniz ed section and content) Reason Comments Consult Dyspepsia/ EGD consu lt Reason Comments 04/12/2023 EGD [facility] Inactive Administered Medications - up to 3 most recent administrations Administered Medications (un recognized section and content) Medication Order MAR Action Action Date Dose Rate Site benzocaine 20% 1 [place] (TOPEX) 1 [place], TOPICAL, DIRECTED, Starting on Mon04/12/23 at 1000, Until Mon04/12/23 at 1359, Dosing as directed for intraprocedural use only - Pharmaceutical Waste: Aerosol -, Intraprocedure Given 04/12/2023 9:38 AM EST 1 [place] diphenhydrAMINE 12.5-50 mg injection (BENADRYL) 12.5-50 mg, INTRAVENOUS, DIRECTED, Starting on Mon04/12/23 at 1000, Until Mon04/12/23 at 1359, DOSING DIRECTED BY PHYSICIAN FOR PROCEDURAL SEDATION ONLY, Intraprocedure Given 04/12/2023 9:41 AM EST 50 mg fentaNYL 50 mcg/mL 25-100 mcg injection (SUBLIMAZE) 25-100 mcg, INTRAVENOUS, DIRECTED, Starting on Mon04/12/23 at 1000, Until Mon04/12/23 at 1359, DOSING DIRECTED BY PHYSICIAN FOR PROCEDURAL SEDATION ONLY, Intraprocedure Given 04/12/2023 9:44 AM EST 25 mcg Given 04/12/2023 9:39 AM EST 50 mcg lactated ringers iv infusion 30 mL/hr, INTRAVENOUS, CONTINUOUS, Starting on Mon04/12/23 at 0900, Until Mon04/12/23 at 1005, Preprocedure New Bag/Syringe/Bottle 04/12/2023 9:05 AM EST 30 mL/hr 30 mL/hr Hand, Right midazolam (PF) 1-5 mg injection (VERSED) 1-5 mg, INTRAVENOUS, DIRECTED, Starting on Mon04/12/23 at 1000, Until Mon04/12/23 at 1359, DOSING DIRECTED BY PHYSICIAN FOR PROCEDURAL SEDATION ONLY, Intraprocedure Given 04/12/2023 9:44 AM EST 1 mg Given 04/12/2023 9:39 AM EST 3 mg (unrecognized sect ion and content) No Status Records FoundNo Status Records Found INFORMATION SOURCE (unrecogn ized section and content) DATE CREATED AUTHOR 12/21/2023 [facility] DATE CREATED AUTHOR AUTHOR'S ORGANIZ ATION 10/11/2024 [facility] FOR RECORDS PERTAINING TO PATIENTS WHO ARE OR HAVE BEEN ENROLLED IN A CHEMICAL DEPENDENCY/SUBSTANCEABUSE PROGRAM, SOME INFORMATION MAY BE OMITTED. This clinical summary was aggregated from multiple sources. Caution should be exercised in using it in the provision of clinical care. This summary normalizes information from multiple sources, and as a consequence, information in this document may materially change the coding, format and clinical context of patient data. In addition, data may be omitted in some cases. CLINICAL DECISIONS SHOULD BE BASED ON THE PRIMARY CLINICAL RECORDS. [employer] provides no warranty or guarantee of the accuracy or completeness of information in this document.
== END | disposition home or self-care (01) ==
LOC: MRI 07:54
PROVIDERS: PCP Internal Medicine; Referring Provider Internal Medicine; Visit Provider Internal Medicine
DX: M25.562 Pain in left knee (principal); G89.29 Other chronic pain
CPT/HCPCS: 73721